=== PATIENT | male | born 1950 | race Caucasian/White ===

== ENCOUNTER → 2018-10-23 09:16 | Outpatient (CLI) | payer OTHER, SELFPAY ==
--- NOTE | 2018-10-23 | DI.ECHO.S_ITS ---
[facility] +---------+ : : [address] : [address] : : : : [id number] : : : : Phone: [phone]+ Echocardiogram Report + + :Name: YISSEL BRYAN Study Date: 10/23/2018 Height: 69 in : :[facility] Exam Location: [facility] Weight: 192 lb : : Gender: Male BSA: 2.0 m2 : :: 1950 Age: 68 yrs BP: 125/70 mmHg: :Reason For Study: Presence of prosthetic heat valve : :Ordering Physician: Michael : :Giacomo Performed By: Betsey Page : + + Interpretation Summary The left ventricle is mildly dilated. The ejection fraction is estimated to be 50-55%. The right ventricle is mildly dilated. Right ventricular systolic function is mild to moderately reduced. This is decreased compared to the previous study. There is a mechanical mitral valve. The prosthetic mitral valve is well-seated. The peak E velocity is about 1.78 m/s, mean gradient about 3.1 mmHg. In February 2015, peak E velocity was 1.9 m/s and mean gradient was 3.8 mmHg as well. There is a mechanical aortic valve. The peak aortic velocity is 2.1 m/sec. The aortic valve mean gradient is 8.9 mmHg. The peak aortic velocity on the previous exam was 2.5 m/sec. There is mild tricuspid regurgitation. Compared to the prior echo exam, there has been no change in TR severity. The right ventricular systolic pressure is estimated to be at least 31 mmHg based on an estimated right atrial pressure of 8 mm Hg. Procedure: A two-dimensional transthoracic echocardiogram with color flow and Doppler was performed. The study quality was technically adequate. Comparison is made with the echocardiogram of 02/12/2015. The heart rate ranged between 40-58 bpm during the study. The patient was in atrial fibrillation with heart rates between 40-58 bpm during the exam. Left Ventricle: The left ventricle is mildly dilated. There is mild-moderate concentric left ventricular hypertrophy. Proximal septal thickening is noted. There is no echo evidence for significant left ventricular outflow tract obstruction. The ejection fraction is estimated to be 50-55%. There is a significant dyssynchronous contraction pattern, consistent with a conduction abnormality. Diastolic function could not be accurately assessed due to confounding valvular disease. Right Ventricle: The right ventricle is mildly dilated. Right ventricular systolic function is mild to moderately reduced. This is decreased compared to the previous study. Atria: Both atria are severely dilated. Both atria have remained unchanged in size since the prior echo exam. There is no Doppler evidence for an interatrial shunt. Mitral Valve: There is a mechanical mitral valve. The prosthetic mitral valve is well-seated. Normal prosthetic mitral valve gradients. The peak E velocity is about 1.78 m/s, mean gradient about 3.1 mmHg. In February 2015, peak E velocity was 1.9 m/s and mean gradient was 3.8 mmHg as well. There is no obvious mitral regurgitation, imaging is limited by acoustic shadowing. Aortic Valve: There is a mechanical aortic valve. The peak aortic velocity is 2.1 m/sec. The peak aortic velocity on the previous exam was 2.5 m/sec. The aortic valve mean gradient is 8.9 mmHg. There is a mobile filamentous type echogenic structure noted on the mechanical aortic valve and LV outflow tract likely severed chordae as it was seen on previous examinations as well. There is trace aortic regurgitation. Tricuspid Valve: The tricuspid valve is normal. There is mild tricuspid regurgitation. The right ventricular systolic pressure is estimated to be at least 31 mmHg based on an estimated right atrial pressure of 8 mm Hg. Compared to the prior echo exam, there has been no change in TR severity. Pulmonic Valve: The pulmonic valve is not well visualized. There is mild to moderate pulmonic regurgitation. Great Vessels: The aortic root is mildly dilated. The ascending aorta is at the upper limits of normal in size. The pulmonary artery is not well visualized, but is probably normal size. The IVC is dilated (diameter is greater than 2.1 cm) yet it collapses greater than 50% with a sniff. This suggests a right atrial pressure of 8 mm Hg. Pericardium/ Pleura There is no pericardial effusion. There is no pleural effusion. MMode/2D Measurements & Calculations LVIDd: 6.1 cm LVOT diam: 2.8 cm LVIDs: 4.3 cm Ao root diam: 4.1 cm FS: 29.7 % asc Aorta Diam: 3.4 cm IVSd: 1.1 cm LVPWd: 1.5 cm LV brasher. diameter/BSA (cm/m^2): 3.0 LV sys. diameter/BSA (cm/m^2): 2.1 LA A2 area: 79.4 cm2 RA long axis: 10.0 cm LA A4 area: 108.0 cm2 RA area: 47.2 cm2 LA length (vol): 10.9 cm RA vol: 188.6 ml LA vol: 664.9 ml RA : 92.9 ml/m2 LA vol index: 327.5 ml/m2 IVC diam: 2.9 cm RVD1 (basal): 4.7 cm Doppler Measurements & Calculations Ao V2 max: 208.5 cm/sec LVOT Max Jonah: 100.7 cm/sec Ao V2 mean: 137.2 cm/sec LV V1 max P.1 mmHg Ao max P.4 mmHg LV V1 VTI: 17.6 cm Ao mean P.9 mmHg ANTONIA(I,D): 2.6 cm2 Ao V2 VTI: 40.3 cm ANTONIA(V,D): 2.9 cm2 sev ratio: 0.44 ANTONIA indexed to BSA (cm^2/m^2): 1.3 Med Peak E' Jonah: 3.4 cm/sec TR max jonah: 240.3 cm/sec Lat Peak E' Jonah: 7.6 cm/sec TR max P.1 mmHg MV P1/2t: 107.7 msec PA V2 max: 59.5 cm/sec MVA(VTI): 2.1 cm2 PA V2 mean: 40.0 cm/sec PA mean P.72 mmHg PA Accel Time: 0.07 sec MV V2 mean: 72.5 cm/sec MV P1/2t max jonah: 173.1 cm/sec MV mean P.1 mmHg MVA(P1/2t): 2.0 cm2 MV V2 VTI: 51.4 cm SV(LVOT): 106.6 ml Reading Physician:SHAYNA
== END ==
PROVIDERS: PCP Family Medicine; Visit Provider Internal Medicine Cardiovascular Disease
DX: I07.1 Rheumatic tricuspid insufficiency (principal); I37.1 Nonrheumatic pulmonary valve insufficiency; Z95.2 Presence of prosthetic heart valve
CPT/HCPCS: 93306

== ENCOUNTER → 2018-11-23 07:41 | Outpatient (CLI) | payer OTHER, SELFPAY ==
--- NOTE | 2018-11-23 | DI.NM.S_ITS ---
PROCEDURE: NM PARATHYROID SPECT RADIOPHARMACEUTICAL: 24.9 mCi Tc-99m sestamibi IV. INDICATIONS: HYPERCALCEMIA/ELEVATED PARATHYROID LEVEL TECHNIQUE: After intravenous administration of Tc-99m sestamibi, anterior planar images of the neck and mediastinum were obtained at approximately 10 minutes and 2-3 hours. SPECT images were acquired after the 10 minute planar images. COMPARISON: [facility], CT, CHEST/ABD/PEL WITH CONTRAST, 09/27/2012, 9:54. [facility], CT, CHEST/ABD/PEL WITH CONTRAST, 05/18/2012, 9:23. FINDINGS: On the early images, the thyroid gland is bilobed and has normal size and morphology. There is no focal increased activity in the thyroid bed. The delayed images show no preferential tracer retention in the thyroid bed to suggest parathyroid adenoma. The SPECT images demonstrate no abnormal activity in the neck. IMPRESSION: No findings of a parathyroid adenoma are detected. If it would be helpful for clinical management decision making, please consider a dedicated parathyroid adenoma protocol CT (without and with contrast) for further evaluation. Dictated by: Dino Muniz M.D. on 11/23/2018 at 10:11 Approved by: Dino Muniz M.D. on 11/23/2018 at 10:13
== END ==
PROVIDERS: PCP Family Medicine; Visit Provider Family Medicine
DX: E83.52 Hypercalcemia (principal)
CPT/HCPCS: 78071; A9500

== ENCOUNTER 2019-03-27 09:16 | Emergency (ER) | payer OTHER, SELFPAY ==
[2019-03-27 09:20] VITALS: BP 192/100; PULSE 88; RESP 22; TEMP 36.4; O2SAT 95
--- NOTE | 2019-03-27 09:37 | DI.RAD.S_ITS ---
PROCEDURE: XR CHEST 1V INDICATIONS: shortness of breath TECHNIQUE: One view of the chest was acquired. COMPARISON: [facility], , CHEST 2 VIEW, 06/04/2017, 20:58. FINDINGS: Surgical changes and devices: Sternotomy wires and CABG clips. Postsurgical aortic valvular change. Scarring and atelectasis, grossly unchanged. No acute consolidation. No pneumothorax. No pleural effusion. Possible Anais B line seen in the right lung base. Mediastinum: Mediastinal contours appear normal. Heart size is enlarged. Bones and chest wall: No suspicious bony lesions. Overlying soft tissues appear unremarkable. Bilateral shoulder joint degeneration. IMPRESSION: Marked cardiomegaly as before. Otherwise, grossly unchanged examination since 06/04/17. In this setting it would be technically difficult to exclude early pulmonary edema. If there is persistent clinical diagnostic uncertainty, continued surveillance with short interval chest radiographs after treatment is recommended. Dictated by: Gerardo Kwan M.D. on 03/27/2019 at 10:14 Approved by: Gerardo Kwan M.D. on 03/27/2019 at 10:16
[2019-03-27 09:54] LABS: Creatine Kinase 61 U/L (55-170)
[2019-03-27 09:55] LABS: Alanine Aminotransferase 15 IU/L (21-72); Albumin 4.3 g/dL (3.5-5.0); Albumin Globulin Ratio 1.3 (1.0-2.8); Alkaline Phosphatase 71 U/L (38-126); Aspartate Aminotransferase 25 IU/L (17-59); BUN Creatinine Ratio 28.8 (6-22); Bilirubin Total 1.5 mg/dL (0.2-1.3); Blood Urea Nitrogen 23 mg/dL (9-20); Calcium 10.5 mg/dL (8.4-10.2); Carbon Dioxide 29 mmol/L (22-32); Chloride 106 mmol/L (98-107); Estimated Glomerular Filt Rate > 60.0 mL/min (>60); Globulin 3.2 g/dL (1.7-4.1); Glucose 90 mg/dL (80-110); HEMOLYSIS < 15 (0-50); Potassium 3.5 mmol/L (3.4-5.1); Sodium 144 mmol/L (137-145); Total Protein 7.5 g/dL (6.3-8.2)
[2019-03-27 09:56] LABS: Prothrombin Time 60.9 SECONDS (10.1-12.7)
[2019-03-27 09:58] LABS: INR 5.1 (0.9-1.3)
[2019-03-27 10:00] VITALS: BP 164/72; PULSE 50; RESP 22; O2SAT 99
[2019-03-27 10:03] LABS: Add Manual Diff / Slide Review NO; Basophils Absolute Auto 0 /uL (0-100); Basophils Percent Auto 0.5 % (0-2); Eosinophils Absolute Auto 300 /uL (0-450); Eosinophils Percent Auto 3.6 % (2-4); Hematocrit 37.6 % (41-53); Lymphocytes Absolute Auto 800 /uL (1100-4500); Lymphocytes Percent Auto 11.4 % (25-40); Mean Corpuscular HGB Conc 34.7 % (30-36); Mean Corpuscular Hemoglobin 34.3 PG (26-34); Monocytes Absolute Auto 900 /uL (0-900); Monocytes Percent Auto 12.2 % (3-14); Neutrophils Absolute Auto 5100 /uL (1500-7000); Neutrophils Percent Auto 72.3 % (50-75); Platelet Count 137 X10^3/uL (150-400); Red Cell Distribution Width 13.9 % (11.6-14.8)
[2019-03-27 10:06] LABS: Troponin I 0.045 ng/mL (0.01-0.034)
--- NOTE | 2019-03-27 10:07 | ED_ITS ---
HPI - SOB/Dyspnea General Chief Complaint: Shortness of Breath/Dyspnea Stated Complaint: RETAINING WATER,DIFFICULTY BREATHING ON EXERTION Time Seen by Provider: 03/27/19 09:50 Source: patient Mode of arrival: ambulatory Limitations: no limitations History of Present Illness Patient is a 68-year-old male with history of CHF and valvular replacements presenting with increased shortness of breath and weight gain. He states calcium was high he was taken off hydrochlorothiazide the 15 of March. He has progressively gotten more short of breath both with exertion and at rest. He is unable to lie flat he has got swelling in his legs. Typical weight is 185 now 204. He denies any chest pain no fevers no cough MD Complaint: shortness of breath Severity: moderate Related Data Home Medications Medication Instructions Recorded Confirmed diltiazem HCl [Cartia XT] 120 mg PO DAILY 03/27/19 03/27/19 losartan 50 mg PO DAILY 03/27/19 03/27/19 metoprolol succinate 50 mg PO DAILY 03/27/19 03/27/19 warfarin 7.5 mg PO SUTUTHSA 03/27/19 03/27/19 warfarin 10 mg PO MOWEFR 03/27/19 03/27/19 Previous Rx's Medication Instructions Recorded furosemide [Lasix] 20 mg PO QAM #3 tab 03/27/19 Allergies Allergy/AdvReac Type Severity Reaction Status Date / Time clindamycin [CLINDAMYCIN] Allergy Severe ANAPHYLAXIS Verified 03/27/19 09:40 Penicillins [PENICILLINS] Allergy Unknown CHILDHOOD Verified 03/27/19 09:40 - UNKNOWN REACTION PER PT Sulfa (Sulfonamide Allergy Unknown CHILDHOOD Verified 03/27/19 09:40 Antibiotics) - UNKNOWN [SULFA (SULFONAMIDE REACTION ANTIBIOTICS)] PER PT Review of Systems Review of Systems GENERAL: Denies chills, fatigue, malaise, fever, sweats, travel HEENT: Denies sinus pain, ear pain, sore throat, difficulty swallowing, neck pain RESPIRATORY: See PI CARDIOVASCULAR: Denies chest pain, palpitations, orthopnea, edema GASTROINTESTINAL: Denies nausea, vomiting, abdominal pain, diarrhea, constipation, melena. : Denies dysuria, frequency, incontinence, hematuria, urinary retention, flank pain. MUSCULOSKELETAL: Denies weakness, joint pain, or bony pain SKIN: No rash, no erythema, no pruritus NEUROLOGIC: Denies weakness, dizziness, headache, numbness, change in speech, confusion PSYCHIATRIC: No concerning psychosocial issues. 12 point review of systems is negative except for those stated above and HPI [facility] Medical History CHF (congestive heart failure) (Acute) Social History Smoking Status: Never smoker Social History Smoking Status: Never smoker Exam Initial Vital Signs Initial Vital Signs: Vital Signs Temperature 97.5 F L 03/27/19 09:20 Pulse Rate 88 03/27/19 09:20 Respiratory Rate 22 03/27/19 09:20 Blood Pressure 192/100 H 03/27/19 09:20 Pulse Oximetry 95 03/27/19 09:20 GENERAL: Alert well-appearing male HEENT: Head atraumatic,EOMI, pupils reactive, face symmetric, CARDIOVASCULAR: Regular rate and rhythm click heard, rubs or gallops. RESPIRATORY: Breath sounds equal bilaterally, no wheezes rales or rhonchi. No respiratory distress speaks in full signs ABDOMEN: Soft, nontender. Normoactive bowel sounds all 4 quadrants. No guarding or rebound. EXTREMITIES: Normal range of motion, no clubbing +2 pitting edema NEUROLOGICAL: Alert and oriented x4.Normal gait and speech. Cranial nerves II through XII grossly intact. SKIN: Warm, dry, no laceration, no petechiae, no rashes or lesions. Course Orders Ordered: ED Orders 03/27/19 09:25 B Type Natriuretic Peptide Stat Complete Blood Count AUTO DIFF Stat Comprehensive Metabolic Panel Stat Prothrombin Time INR Stat Troponin & CK Cardiac Panel Stat 03/27/19 09:36 EKG-12 Lead Stat 03/27/19 09:37 XR chest 1V Stat Discontinued Medications Furosemide (Lasix) 40 mg IV NOW ONE Stop: 03/27/19 09:59 Last Admin: 03/27/19 11:09 Dose: 40 mg Vital Signs - 8 hr 03/27/19 09:20 03/27/19 10:00 03/27/19 11:00 Temperature 97.5 F L Pulse Rate 88 50 L 50 L Respiratory Rate 22 22 24 Blood Pressure 192/100 H Blood Pressure [Right Arm] 164/72 H 123/82 Pulse Oximetry 95 99 99 03/27/19 11:39 03/27/19 12:00 Temperature Pulse Rate 52 L 60 Respiratory Rate 18 20 Blood Pressure Blood Pressure [Right Arm] 177/78 H 168/70 H Pulse Oximetry 99 97 MDM - SOB/Dyspnea Lab Data Attestation: I reviewed the patient's lab results. Result diagrams: 03/27/19 09:25 03/27/19 09:25 Lab Results 03/27/19 03/27/19 03/27/19 Range/Units 09:25 09:25 09:25 WBC 7.0 (4.5-11.0) X10^3/uL RBC 3.80 L (4.5-5.9) X10^6/uL Hgb 13.0 L (13.5-17.5) g/dL Hct 37.6 L (41-53) % MCV 99.0 (80-100) fL MCH 34.3 H (26-34) PG MCHC 34.7 (30-36) % RDW 13.9 (11.6-14.8) % Plt Count 137 L (150-400) X10^3/uL Neut % (Auto) 72.3 (50-75) % Lymph % (Auto) 11.4 L (25-40) % [place] % (Auto) 12.2 (3-14) % Eos % (Auto) 3.6 (2-4) % Baso % (Auto) 0.5 (0-2) % Neut # (Auto) 5100 (6006-8040) /uL Lymph # (Auto) 800 L (5128-9722) /uL [place] # (Auto) 900 (0-900) /uL Eos # (Auto) 300 (0-450) /uL Baso # (Auto) 0 (0-100) /uL PT 60.9 H (10.1-12.7) SECONDS INR 5.1 H* (0.9-1.3) Sodium 144 (137-145) mmol/L Potassium 3.5 (3.4-5.1) mmol/L Chloride 106 (98-107) mmol/L Carbon Dioxide 29 (22-32) mmol/L BUN 23 H (9-20) mg/dL Creatinine 0.80 (0.66-1.25) mg/dL Estimated GFR > 60.0 (>60) mL/min BUN/Creatinine Ratio 28.8 H (6-22) Glucose 90 (80-110) mg/dL Calcium 10.5 H (8.4-10.2) mg/dL Total Bilirubin 1.5 H (0.2-1.3) mg/dL AST 25 (17-59) IU/L ALT 15 L (21-72) IU/L Alkaline Phosphatase 71 (38-126) U/L Total Creatine Kinase (55-170) U/L CK-MB (CK-2) CK-MB (CK-2) Rel Index Troponin I (0.01-0.034) ng/mL B-Natriuretic Peptide (<100) Total Protein 7.5 (6.3-8.2) g/dL Albumin 4.3 (3.5-5.0) g/dL Globulin 3.2 (1.7-4.1) g/dL Albumin/Globulin Ratio 1.3 (1.0-2.8) 03/27/19 03/27/19 Range/Units 09:25 09:25 WBC (4.5-11.0) X10^3/uL RBC (4.5-5.9) X10^6/uL Hgb (13.5-17.5) g/dL Hct (41-53) % MCV (80-100) fL MCH (26-34) PG MCHC (30-36) % RDW (11.6-14.8) % Plt Count (150-400) X10^3/uL Neut % (Auto) (50-75) % Lymph % (Auto) (25-40) % [place] % (Auto) (3-14) % Eos % (Auto) (2-4) % Baso % (Auto) (0-2) % Neut # (Auto) (9037-1073) /uL Lymph # (Auto) (8244-3274) /uL [place] # (Auto) (0-900) /uL Eos # (Auto) (0-450) /uL Baso # (Auto) (0-100) /uL PT (10.1-12.7) SECONDS INR (0.9-1.3) Sodium (137-145) mmol/L Potassium (3.4-5.1) mmol/L Chloride (98-107) mmol/L Carbon Dioxide (22-32) mmol/L BUN (9-20) mg/dL Creatinine (0.66-1.25) mg/dL Estimated GFR (>60) mL/min BUN/Creatinine Ratio (6-22) Glucose (80-110) mg/dL Calcium (8.4-10.2) mg/dL Total Bilirubin (0.2-1.3) mg/dL AST (17-59) IU/L ALT (21-72) IU/L Alkaline Phosphatase (38-126) U/L Total Creatine Kinase 61 (55-170) U/L CK-MB (CK-2) TNP CK-MB (CK-2) Rel Index TNP Troponin I 0.045 H (0.01-0.034) ng/mL B-Natriuretic Peptide 330 H (<100) Total Protein (6.3-8.2) g/dL Albumin (3.5-5.0) g/dL Globulin (1.7-4.1) g/dL Albumin/Globulin Ratio (1.0-2.8) Urine Dip Bedside Urine Glucose Negative Bedside Urine Bilirubin + 1 Bedside Urine Ketone +/- 5 Urine Specific [place] 1.030 Bedside Urine Occult Blood +++ Bedside Urine pH 5.5 Bedside Urine Protein + 30 Bedside Urine Urobilinogen 1+ 2mg Bedside Urine Nitrite - Negative Bedside Urine Leukocytes - Negative Esterase Imaging Data Chest x-ray: Radiologist's impression: PROCEDURE: XR CHEST 1V INDICATIONS: shortness of breath TECHNIQUE: One view of the chest was acquired. COMPARISON: [facility], , CHEST 2 VIEW, 06/04/2017, 20:58. FINDINGS: Surgical changes and devices: Sternotomy wires and CABG clips. Postsurgical aortic valvular change. Scarring and atelectasis, grossly unchanged. No acute consolidation. No pneumothorax. No pleural effusion. Possible Anais B line seen in the right lung base. Mediastinum: Mediastinal contours appear normal. Heart size is enlarged. Bones and chest wall: No suspicious bony lesions. Overlying soft tissues appear unremarkable. Bilateral shoulder joint degeneration. IMPRESSION: Marked cardiomegaly as before. Otherwise, grossly unchanged examination since 06/04/17. In this setting it would be technically difficult to exclude early pulmonary edema. If there is persistent clinical diagnostic uncertainty, continued surveillance with short interval chest radiographs after treatment is recommended. Dictated by: Gerardo Kwan M.D. on 03/27/2019 at 10:14 ECG Data Attestation: I personally reviewed and interpreted this ECG as follows: Interpretation: Atrial fibrillation Rate [address] changes MDM Narrative Medical decision making narrative: Patient had ambulation trial his oxygen it decreased to 85% however he was completely asymptomatic a came up very quickly afterwards. He is requesting to go home rather than be admitted to the hospital. I have called and spoken with Dr. Correa in his PCP office. I updated her on elevated INR of 5.1 a need for Lasix. She agrees he will be seen in the office to recheck INR and check on his breathing. Discharge Plan Departure Patient Disposition: Home Clinical Impression: CHF (congestive heart failure) Qualifiers: Heart failure type: unspecified Heart failure chronicity: unspecified Qualified Code(s): I50.9 - Heart failure, unspecified Discharge Date/Time: 03/27/19 12:55 Interventions: ED Discharge Assessment Last Done: 03/27/19 12:54 Instructions: Heart Failure Activity Restrictions/Additional Instructions: *You have been diagnosed with congestive heart failure and elevated INR *What to do: You have water retention from not taking water pill. *Continue to take medications as directed DO NOT TAKE WARFARIN FOR THE NEXT 2 DAYS. YOUR INR NEEDS TO BE RE-CHECKED THIS WEEK IN CLINIC Start taking Lasix 20 mg once a day for 3 days--> SENT OT [facility] *Follow up with your primary care provider in 2-3 days *Return to ER if you should have chest pain, shortness of breath, or any new, worsening or concerning symptoms Prescriptions: New furosemide [Lasix] 20 mg tablet 20 mg PO QAM Qty: 3 RF: 0 No Action losartan 50 mg Tablet 50 mg PO DAILY RF: 0 metoprolol succinate 50 mg Tablet Extended Release 24 Hr 50 mg PO DAILY RF: 0 warfarin 10 mg Tablet 10 mg PO MOWEFR RF: 0 diltiazem HCl [Cartia XT] 120 mg Capsule,Extended Release 24hr 120 mg PO DAILY RF: 0 warfarin 7.5 mg Tablet 7.5 mg PO SUTUTHSA RF: 0 Referrals: Jurgen Vigil MD [Primary Care Provider] -
[2019-03-27 10:34] LABS: B Type Natriuretic Peptide 330 (<100)
[2019-03-27 11:00] VITALS: BP 123/82; PULSE 50; RESP 24; O2SAT 99
[2019-03-27] MEDS: FUROSEMIDE 40 MG/4 ML VIAL IV (11:09)
[2019-03-27 11:39] VITALS: BP 177/78; PULSE 52; RESP 18; O2SAT 99
[2019-03-27 12:00] VITALS: BP 168/70; PULSE 60; RESP 20; O2SAT 97
--- NOTE | 2019-03-27 12:38 | PC.NURSE ---
f\u appt made w/ Dr. Irving's office. (Luna Chen NP) 03/29 at 1500 to recheck respiratory status as well as INR.
== END 2019-03-27 12:55 | disposition home or self-care (01) ==
PROVIDERS: Emergency Provider Emergency Medicine; PCP Family Medicine
DX: I50.9 Heart failure, unspecified (principal)
CPT/HCPCS: 71045; 80053; 81003; 82550; 83880; 84484; 85025; 85610; 93005; 96374; 99284; 99285; J1940

== ENCOUNTER → 2019-04-05 09:46 | Outpatient (CLI) | payer OTHER, SELFPAY | PROVIDERS: Family Provider Family Medicine; PCP Family Medicine; Visit Provider Internal Medicine Endocrinology, Diabetes & Metabolism | DX: M85.852 Other specified disorders of bone density and structure, left thigh (principal); E21.3 Hyperparathyroidism, unspecified | CPT/HCPCS: 77080 ==

== ENCOUNTER → 2019-04-27 07:55 | Outpatient (CLI) | payer OTHER, SELFPAY ==
--- NOTE | 2019-04-27 | DI.ECHO.S_ITS ---
[facility]---------+ [facility] +---------+ : : [address] : [address] : : : : [id number] : : : : Phone: [phone]+ Echocardiogram Report + + :Name: YISSEL BRYAN Study Date: 04/27/2019 Height: 69 in : :[facility] Location: [facility] Weight: 183 lb : : Gender: Male BSA: 2.0 m2 : :: 1950 Age: 68 yrs BP: 160/70 mmHg: :Reason For Study: Acute CHF : :Ordering Physician: Michael : :Delia Gooden Performed By: Betsey Page : + + Interpretation Summary The left ventricle is moderately dilated. This is mildly increased compared to the previous study. The ejection fraction is estimated to be 50-55%. There has been no significant change in LVEF since the previous study. The right ventricle is mildly dilated.Right ventricular systolic function is moderately reduced. There is a mechanical mitral valve. The prosthetic mitral valve is well-seated. The peak E velocity is about 1.8 m/s and mean gradient about 4.3 mmHg. In October 2018 it was 1.78 m/s and mean gradient about 3.1 mmHg. In February 2015, peak E velocity was 1.9 m/s and mean gradient was 3.8 mmHg. No significant mitral regurgitation seen. Overall evaluation is limited due to acoustic shadowing. There is a mechanical aortic valve. The prosthetic aortic valve is well-seated. The peak aortic velocity is 2.3 m/sec. The peak aortic velocity on the previous exam was 2.1 m/sec. The aortic valve mean gradient is 20.5 mmHg. There is mild tricuspid regurgitation. Compared to the prior echo exam, there has been no change in TR severity. The right ventricular systolic pressure is estimated to be at least 38 mmHg based on an estimated right atrial pressure of 15 mm Hg. Compared to the prior echo exam, there has been an increase in the severity of pulmonary hypertension. Procedure: A two-dimensional transthoracic echocardiogram with color flow and Doppler was performed. The study quality was technically adequate. Comparison is made with the echocardiogram of 10/23/2018. The heart rate ranged between 41-57 bpm during the study. The patient was in atrial fibrillation with heart rates between 41-57 bpm during the exam. Left Ventricle: The left ventricle is moderately dilated. Proximal septal thickening is noted. There is no echo evidence for significant left ventricular outflow tract obstruction. Left ventricular wall thickness is mild-moderately increased. This is mildly increased compared to the previous study. There is no thrombus. The ejection fraction is estimated to be 50-55%. There has been no significant change since the previous study. There is a significant dyssynchronous contraction pattern due to the paced rhythm. Diastolic function could not be accurately assessed due to confounding valvular disease. Right Ventricle: The right ventricle is mildly dilated. Right ventricular systolic function is moderately reduced. Atria: Both atria are severely dilated. Both atria have remained unchanged in size since the prior echo exam. There is no Doppler evidence for an interatrial shunt. Mitral Valve: There is a mechanical mitral valve. The prosthetic mitral valve is well-seated. The peak E velocity is about 1.8 m/s and mean gradient about 4.3 mmHg. In October 2018 it was 1.78 m/s and mean gradient about 3.1 mmHg. In February 2015, peak E velocity was 1.9 m/s and mean gradient was 3.8 mmHg. No significant mitral regurgitation seen. Overall evaluation is limited due to acoustic shadowing. Aortic Valve: There is a mechanical aortic valve. The prosthetic aortic valve is well-seated. There is a mobile filamentous type echogenic structure noted on the mechanical aortic valve and LV outflow tract likely severed chordae as it was seen on previous examinations as well. The peak aortic velocity is 2.3 m/sec. The peak aortic velocity on the previous exam was 2.1 m/sec. The aortic valve mean gradient is 20.5 mmHg. There is trace aortic regurgitation. Tricuspid Valve: The tricuspid valve is normal. There is mild tricuspid regurgitation. The right ventricular systolic pressure is estimated to be at least 38 mmHg based on an estimated right atrial pressure of 15 mm Hg. Compared to the prior echo exam, there has been no change in TR severity. Compared to the prior echo exam, there has been an increase in the severity of pulmonary hypertension. Pulmonic Valve: The pulmonic valve is not well visualized. There is moderate pulmonic regurgitation. Great Vessels: The aortic root is mildly dilated. The ascending aorta is normal in size. The pulmonary artery is not well visualized, but is probably normal size. The IVC is dilated (diameter is greater than 2.1 cm) and it collapses less than 50% with a sniff. This suggests a high right atrial pressure of 15 mm Hg. Pericardium/ Pleura There is no pericardial effusion. There is no pleural effusion. MMode/2D Measurements & Calculations LVIDd: 7.3 cm LVOT diam: 2.8 cm LVIDs: 5.0 cm Ao root diam: 3.9 cm FS: 31.3 % asc Aorta Diam: 3.3 cm IVSd: 0.75 cm LVPWd: 1.2 cm LV brasher. diameter/BSA (cm/m^2): 3.7 LV sys. diameter/BSA (cm/m^2): 2.5 LA A2 area: 157.6 cm2 RA long axis: 8.3 cm LA A4 area: 57.9 cm2 RA area: 45.9 cm2 LA length (vol): 9.6 cm RA vol: 215.5 ml LA vol: 806.8 ml RA : 108.3 ml/m2 LA vol index: 405.6 ml/m2 IVC diam: 2.9 cm RVD1 (basal): 4.6 cm RVD2 (mid): 3.0 cm Doppler Measurements & Calculations Ao V2 max: 226.4 cm/sec LVOT Max Jonah: 91.4 cm/sec Ao V2 mean: 142.5 cm/sec LV V1 max P.4 mmHg Ao max P.5 mmHg LV V1 VTI: 18.0 cm Ao mean P.6 mmHg ANTONIA(I,D): 2.6 cm2 Ao V2 VTI: 42.6 cm ANTONIA(V,D): 2.5 cm2 sev ratio: 0.42 ANTONIA indexed to BSA (cm^2/m^2): 1.3 MV E max jonah: 158.2 cm/sec TR max jonah: 239.7 cm/sec MV P1/2t: 117.4 msec TR max P.1 mmHg MVA(VTI): 2.4 cm2 PA V2 max: 62.7 cm/sec PA V2 mean: 32.0 cm/sec PA mean P.60 mmHg PA pr(Accel): -624.7 mmHg PA Accel Time: 0.10 sec MV V2 mean: 88.0 cm/sec MV P1/2t max jonah: 158.5 cm/sec MV mean P.1 mmHg MVA(P1/2t): 1.9 cm2 MV V2 VTI: 47.2 cm SV(LVOT): 112.4 ml Reading Physician:07:09 PM
[2019-04-27 10:21] LABS: BUN Creatinine Ratio 32.5 (6-22); Blood Urea Nitrogen 26 mg/dL (9-20); Calcium 10.9 mg/dL (8.4-10.2); Carbon Dioxide 32 mmol/L (22-32); Chloride 100 mmol/L (98-107); Estimated Glomerular Filt Rate > 60.0 mL/min (>60); Glucose 82 mg/dL (80-110); HEMOLYSIS < 15 (0-50); Potassium 3.9 mmol/L (3.4-5.1); Sodium 139 mmol/L (137-145)
== END ==
PROVIDERS: Family Provider Family Medicine; PCP Family Medicine; Visit Provider Internal Medicine Cardiovascular Disease
DX: I07.1 Rheumatic tricuspid insufficiency (principal); I50.31 Acute diastolic (congestive) heart failure; Z95.2 Presence of prosthetic heart valve
CPT/HCPCS: 36415; 80048; 93306

== ENCOUNTER → 2022-01-26 16:27 | Outpatient (CLI) | payer OTHER, SELFPAY ==
[2022-01-26 17:49] LABS: Alanine Aminotransferase 12 IU/L (<50); Albumin 4.4 g/dL (3.5-5.0); Albumin Globulin Ratio 1.4 (1.0-2.8); Alkaline Phosphatase 66 U/L (38-126); Aspartate Aminotransferase 30 IU/L (17-59); BUN Creatinine Ratio 22.8 (6-22); Bilirubin Total 1.1 mg/dL (0.2-1.3); Blood Urea Nitrogen 23 mg/dL (9-20); Carbon Dioxide 33 mmol/L (22-32); Chloride 100 mmol/L (98-107); Estimated Glomerular Filt Rate > 60 mL/min (>60); Globulin 3.2 g/dL (1.7-4.1); Glucose 97 mg/dL (80-110); HEMOLYSIS 17 (0-50); Potassium 3.7 mmol/L (3.4-5.1); Sodium 140 mmol/L (137-145); Total Protein 7.6 g/dL (6.3-8.2)
== END ==
PROVIDERS: PCP Family Medicine; Referring Provider Internal Medicine Cardiovascular Disease; Visit Provider Internal Medicine Cardiovascular Disease
DX: I10 Essential (primary) hypertension (principal)
CPT/HCPCS: 36415; 80053

== ENCOUNTER → 2022-04-02 08:46 | Outpatient (CLI) | payer OTHER, SELFPAY ==
[2022-04-02 09:44] LABS: Add Manual Diff / Slide Review NO; Basophils Absolute Auto 0 /uL (0-100); Basophils Percent Auto 0.6 % (0-2); Eosinophils Absolute Auto 300 /uL (0-450); Eosinophils Percent Auto 5.2 % (2-4); Hematocrit 37.4 % (41-53); Lymphocytes Absolute Auto 800 /uL (1100-4500); Mean Corpuscular HGB Conc 34.8 % (30-36); Mean Corpuscular Hemoglobin 34.3 PG (26-34); Mean Corpuscular Volume 98.5 fL (80-100); Monocytes Absolute Auto 1000 /uL (0-900); Monocytes Percent Auto 16.2 % (3-14); Neutrophils Absolute Auto 4100 /uL (1500-7000); Platelet Count 126 X10^3/uL (150-400); Red Cell Distribution Width 14.1 % (11.6-14.8); White Blood Cell Count 6.4 X10^3/uL (4.5-11.0)
[2022-04-02 10:07] LABS: INR 3.5 (0.9-1.3); Prothrombin Time 40.2 SECONDS (10.1-12.7)
[2022-04-02 10:25] LABS: BUN Creatinine Ratio 23.6 (6-22); Blood Urea Nitrogen 25 mg/dL (9-20); Calcium 10.9 mg/dL (8.4-10.2); Carbon Dioxide 33 mmol/L (22-32); Chloride 102 mmol/L (98-107); Estimated Glomerular Filt Rate > 60 mL/min (>60); Glucose 74 mg/dL (80-110); HEMOLYSIS < 15 (0-50); Potassium 3.6 mmol/L (3.4-5.1); Sodium 141 mmol/L (137-145)
[2022-04-02 10:32] LABS: NT-proBNP (BNP-Adult 18+) 1150 pg/mL (<125)
== END ==
PROVIDERS: PCP Family Medicine; Referring Provider Internal Medicine Cardiovascular Disease; Visit Provider Internal Medicine Cardiovascular Disease
DX: R06.01 Orthopnea (principal); Z95.2 Presence of prosthetic heart valve
CPT/HCPCS: 36415; 80048; 83880; 85025; 85610

== ENCOUNTER 2022-07-14 15:32 | Emergency (ER) | payer OTHER, SELFPAY ==
[2022-07-14 15:42] VITALS: BP 133/96; PULSE 59; RESP 16; TEMP 36.3; O2SAT 98; BMI 26.4
--- NOTE | 2022-07-14 21:22 | ED.GENADULT ---
HPI - General Adult General Chief complaint: Hypertension Stated complaint: sent by md for blood pressure issues Source: patient Mode of arrival: Ambulatory Related Data Home Medications Medication Instructions Recorded Confirmed diltiazem HCl 120 mg 120 mg PO DAILY 03/27/19 03/27/19 capsule,extended release 24 hr (Cartia XT) losartan 50 mg tablet 50 mg PO DAILY 03/27/19 03/27/19 metoprolol succinate 50 mg 50 mg PO DAILY 03/27/19 03/27/19 tablet,extended release 24 hr warfarin 10 mg tablet 10 mg PO MOWEFR 03/27/19 03/27/19 warfarin 7.5 mg tablet 7.5 mg PO SUTUTHSA 03/27/19 03/27/19 Previous Rx's Medication Instructions Recorded furosemide 20 mg tablet (Lasix) 20 mg PO QAM #3 tabs 03/27/19 Allergies Allergy/AdvReac Type Severity Reaction Status Date / Time clindamycin [CLINDAMYCIN] Allergy Severe ANAPHYLAXIS Verified 07/14/22 15:42 Penicillins [PENICILLINS] Allergy Unknown CHILDHOOD Verified 07/14/22 15:42 - UNKNOWN REACTION PER PT Sulfa (Sulfonamide Allergy Unknown CHILDHOOD Verified 07/14/22 15:42 Antibiotics) - UNKNOWN [SULFA (SULFONAMIDE REACTION ANTIBIOTICS)] PER PT Patient History Medical History (Updated 07/14/22 @ 20:23 by Arlyn Rubio RN) CHF (congestive heart failure) Social History Smoking Status: Never smoker Smoking Status: Never smoker alcohol intake frequency: 0-2 drinks per day Substance Use Type: does not use Exam Initial Vital Signs Initial Vital Signs: Vital Signs Temperature 97.3 F L 07/14/22 15:42 Pulse Rate 59 L 07/14/22 15:42 Respiratory Rate 16 07/14/22 15:42 Blood Pressure 133/96 H 07/14/22 15:42 Pulse Oximetry 98 07/14/22 15:42 Oxygen Delivery Method 07/14/22 15:42 Course Vital Signs Vital signs: Vital Signs - 8 hr 07/14/22 15:42 Temperature 97.3 F L Pulse Rate 59 L Respiratory Rate 16 Blood Pressure 133/96 H Pulse Oximetry 98 Oxygen Delivery Method Room Air Discharge Plan Departure Patient Disposition: Left Without Being Seen Clinical Impression: Patient left without being seen Prescriptions: No Action losartan 50 mg Tablet 50 mg PO DAILY metoprolol succinate 50 mg Tablet Extended Release 24 Hr 50 mg PO DAILY warfarin 10 mg Tablet 10 mg PO MOWEFR diltiazem HCl [Cartia XT] 120 mg Capsule,Extended Release 24hr 120 mg PO DAILY warfarin 7.5 mg Tablet 7.5 mg PO SUTUTHSA furosemide [Lasix] 20 mg tablet 20 mg PO QAM Qty: 3 0RF
== END 2022-07-14 16:37 | disposition left against medical advice (07) ==
PROVIDERS: Emergency Provider Emergency Medicine; PCP Family Medicine
CPT/HCPCS: 99281

== ENCOUNTER → 2022-07-15 09:11 | Outpatient (CLI) | payer OTHER, SELFPAY ==
--- NOTE | 2022-07-15 09:12 | DI.NM.S_ITS ---
PROCEDURE: NM OLEG PERF SPECT R&S PHARM Rest and pharmacological stress myocardial perfusion SPECT with gated imaging and ejection fraction RADIOPHARMACEUTICAL: 12.5 mCi Tc-99m tetrafosmin IV at rest and 26.7 mCi Tc-99m tetrafosmin IV at peak effect of pharmacological stress. A [id number] was performed. INDICATIONS: Paroxysmal ventricular tachycardia TECHNIQUE: Radiopharmaceutical was injected at peak stress test, and also at rest. SPECT images were obtained. SPECT myocardial perfusion images were displayed in short axis, horizontal long axis, and vertical long axis views. Gated images were reviewed using [employer] software. COMPARISON: None. CARDIAC STRESS: A pharmacologic stress test was performed under the supervision of an attending staff, using an infusion of regadenoson. Hemodynamic data: There is normal blood pressure and heart rate response to pharmacologic stress. Symptoms: The patient denied anginal chest pain. EKG: No diagnostic changes of ischemia in the setting of pharmacologic stress; frequent PVCs. FINDINGS: Raw data: There is poor myocardial uptake of radiotracer. No significant motion artifacts. Left ventricle function: Gated images demonstrate global hypokinesis. No transient ischemic dilation; TID is 0.89 (normal less than 1.3). Left ventricle resting end diastolic volume is 240 mL. Left ventricle stress ejection fraction is 41%; normal range is above 45%. Myocardial perfusion: There is a small size, mild intensity fixed basal to mid anterior wall defect and a large size, moderate to severe fixed inferior and inferoapical wall defect. IMPRESSION: Very poor quality study. Distribution of tracer through the myocardium suggests a severely dilated left ventricle of an atypical shape. While there was no significant patient motion artifact detected, suspect that there was either image acquisition or processing error. The defects identified in the basal to mid anterior and inferior and inferoapical mary appear fixed suggesting scar however global wall motion is abnormal, possibly due to gating error. Consider an alternative type of noninvasive ischemic evaluation and an echocardiogram. Dictated by: Yadi Grimes D.O. on 07/15/2022 at 16:47 Approved by: Yadi Grimes D.O. on 07/15/2022 at 16:55
[2022-07-15 10:08] LABS: COVID19 -Nasal RAPID Negative (Negative)
== END ==
PROVIDERS: Internal Medicine Cardiovascular Disease; PCP Family Medicine; Referring Provider Physician Assistant Medical; Visit Provider Physician Assistant Medical
DX: I47.29 Other ventricular tachycardia (principal); Z20.822 Contact with and (suspected) exposure to COVID-19
CPT/HCPCS: 78452; 87635; 93017; A9502; J2785

== ENCOUNTER → 2023-03-17 14:44 | Outpatient (CLI) | payer OTHER, SELFPAY ==
[2023-03-17 15:52] LABS: BUN Creatinine Ratio 17.9 (6-22); Blood Urea Nitrogen 21 mg/dL (9-20); Calcium 10.6 mg/dL (8.4-10.2); Carbon Dioxide 37 mmol/L (22-32); Chloride 101 mmol/L (98-107); Estimated Glomerular Filt Rate > 60 mL/min (>60); Glucose 99 mg/dL (80-110); HEMOLYSIS < 15 (0-50); Potassium 3.9 mmol/L (3.4-5.1); Sodium 141 mmol/L (137-145)
== END ==
PROVIDERS: PCP Family Medicine; Referring Provider Internal Medicine Cardiovascular Disease; Visit Provider Internal Medicine Cardiovascular Disease
DX: I27.81 Cor pulmonale (chronic) (principal); I10 Essential (primary) hypertension
CPT/HCPCS: 36415; 80048

== ENCOUNTER → 2023-03-24 08:46 | Outpatient (CLI) | payer OTHER, SELFPAY ==
[2023-03-24 10:46] LABS: BUN Creatinine Ratio 16.2 (6-22); Blood Urea Nitrogen 17 mg/dL (9-20); Calcium 10.8 mg/dL (8.4-10.2); Carbon Dioxide 30 mmol/L (22-32); Chloride 103 mmol/L (98-107); Cholesterol 122 mg/dL (140-199); Estimated Glomerular Filt Rate > 60 mL/min (>60); Glucose 89 mg/dL (80-110); HDL Cholesterol 41 mg/dL (40-60); HEMOLYSIS < 15 (0-50); LDL Cholesterol Calculated 70 mg/dL (<100); Potassium 4.1 mmol/L (3.4-5.1); Sodium 140 mmol/L (137-145); Triglycerides 53 mg/dL (35-150)
== END ==
PROVIDERS: PCP Family Medicine; Referring Provider Internal Medicine Cardiovascular Disease; Visit Provider Internal Medicine Cardiovascular Disease
DX: I10 Essential (primary) hypertension (principal); I48.20 Chronic atrial fibrillation, unspecified
CPT/HCPCS: 36415; 80048; 80061

== ENCOUNTER 2023-10-04 07:27 | Day surgery (SDC) | payer OTHER, SELFPAY ==
--- NOTE | 2023-10-04 | PATH_ITS ---
[facility] Accession Number: [id number] No. of containers..01 Tissue . 01 Material submitted: . colon - SIGMOID POLYP . 01 Diagnosis: SIGMOID COLON, POLYP: Hyperplastic polyp. [facility] 10/06/2023 1112 Local . 01 Electronically signed: . Swathi Choudhury MD, Pathologist NPI- [id number] . 01 Gross description: . SIGMOID POLYP: Received in formalin is 1 fragment(s) of hinton, soft tissue measuring 0.5 x 0.4 x 0.3 cm submitted entirely in 1 cassette(s) /MARCELINA 10/05/20232035 Local . 01 Pathologist provided ICD-10: K63.5 . 01 CPT . 379114 Specimen Comment: A courtesy copy of this report has been sent to [phone] Performed at: 01 [facility] [address] [place] [address], [place], [place] [id number] MD Daniel Olguin MD Phone: [phone]
[2023-10-04 07:48] VITALS: BP 142/76; PULSE 66; RESP 28; TEMP 36.1; O2SAT 100
[2023-10-04] MEDS: LACTATED RINGERS 1,000 ML 42 ML IV (07:55)
--- NOTE | 2023-10-04 08:09 | PM.PREOP ---
Pre-operative Note Interval Note History & Physical reviewed/Exam performed by Physician: Yes Changes to H&P: No H&P completed within 30 days and has changed as indicated here:: 73-year-old man history of colon cancer with a positive Cologuard test here for diagnostic colonoscopy. Technical details were discussed. Risks, benefits, alternatives explained. Risks including but not limited to myocardial infarctThe patient requires colorectal screening and colonoscopy is recommended. ion, aspiration, bleeding, pain, missed lesion, incomplete examination, need for further radiographic studies, colonic perforation, and need for major abdominal surgery were discussed. All questions were answered to their satisfaction, and they are in agreement with this plan.
[2023-10-04 08:44] VITALS: BP 97/51; PULSE 49; RESP 20; TEMP 36.2; O2SAT 99
--- NOTE | 2023-10-04 08:45 | P.OP.COLON_ITS ---
Operative Date/Time/Diagnoses Date of procedure: 10/04/23 Time of procedure: 08:45 Pre-op diagnosis: Positive Cologuard test Procedure & Clinicians Study performed: Diagnostic colonoscopy Same procedure as scheduled: Yes Indications: 73-year-old male remote history of colon cancer on anticoagulation with a positive Cologuard test here for diagnostic colonoscopy. Surgeon: Chivo Tinoco Procedure Notes Procedure in detail: The history and physical was performed/updated and the patient is ASA class is 3. The procedure was discussed in detail with the patient. Potential risks complications including infection, bleeding, missed diagnosis, perforation, need for surgery, and were explained. Their questions were answered and informed consent was obtained. Patient was brought to the procedure room and placed standard monitoring equipment. The patient's vital signs were monitored continuously throughout the entire procedure. Prior to starting time-out was performed. The patient was placed in the left lateral recumbent position. Procedural sedation was administered by anesthesia. Examination began with a thorough inspection of the perianal area there was no evidence of fissures, fistulae, external hemorrhoids or cutaneous malignancy. The colonoscopy scope was then placed into the anal canal and was advanced forward until we reached a ileocolonic anastomosis. The scope was then slowly withdrawn examining colon thoroughly in all directions, irrigating it of any residual stool. The scope was retroflexed within the rectum The patient tolerated the procedure well. They will be discharged once criteria are met. The prep was of fair quality. The withdrawl time was 7 minutes. FINDINGS * Normal ileocolonic anastomosis * Sigmoid colonic polyp 5 mm removed with cold snare * Internal hemorrhoids Specimen(s): other (Sigmoid polyp) Impression: Colonic polyp Post-procedure Recommendations: Colonoscopy in 5 years Disposition: same day surgery
[2023-10-04 08:51] VITALS: BP 75/54; PULSE 52; RESP 21; O2SAT 99
[2023-10-04 08:55] VITALS: BP 92/73; PULSE 51; RESP 23; O2SAT 98
[2023-10-04 09:04] VITALS: BP 116/92; PULSE 54; RESP 16; O2SAT 100
[2023-10-04 09:07] VITALS: BP 126/88; PULSE 45; RESP 16; O2SAT 99
== END 2023-10-04 09:19 | disposition home or self-care (01) ==
PROVIDERS: PCP Family Medicine; Referring Provider Surgery; Visit Provider Surgery
PROC: 0DJD8ZZ Inspection of Lower Intestinal Tract, Via Natural or Artificial Opening Endoscopic (ICD-10-PCS; CPT 45378; principal; 2023-10-04 08:15)
DX: Z12.11 Encounter for screening for malignant neoplasm of colon (principal); R19.5 Other fecal abnormalities; K64.8 Other hemorrhoids; K63.5 Polyp of colon
CPT/HCPCS: 45385; J2704

== ENCOUNTER 2023-10-12 11:41 | Day surgery (SDC) | payer OTHER, SELFPAY ==
[2023-10-10 07:59] VITALS: BMI 24.5
[2023-10-12] VITALS (10 sets, daily range): BP systolic 101–153; BP diastolic 45–83; PULSE 40–61; RESP 14–24; TEMP 36.4–36.6; O2SAT 92–100; BMI 22.7
--- NOTE | 2023-10-12 12:30 | PM.PREOP ---
Pre-operative Note Interval Note History & Physical reviewed/Exam performed by Physician: Yes Changes to H&P: No
[2023-10-12] MEDS: LACTATED RINGERS 1,000 ML 21 ML IV (12:34)
[2023-10-12] MEDS: VANCOMYCIN 1,000 MG/200 ML PIGGYBACK 200 MG IV (12:34)
--- NOTE | 2023-10-12 13:16 | SUR.OPER ---
Supine on padded OR bed, head on pillow, arms secured on padded arm boards at <90 degrees abduction, legs uncrossed, safety belt at thigh, tape over blanket over lower legs.
[2023-10-12] MEDS: BUPIVACAINE 0.25% (PF) VIAL 30 ML INJ (13:19)
--- NOTE | 2023-10-12 14:29 | P.OP_ITS ---
Operative Date/Time/Diagnoses Date of procedure: 10/12/23 Time of procedure: 14:30 Pre-op diagnosis: Incisional hernia Post-op diagnosis: same Procedure & Clinicians Procedure: Open repair left abdominal wall incisional hernia 5 cm Same procedure as scheduled: Yes Indications: Jurgen is a 73-year-old man remote history of colon cancer who developed a left abdominal wall incisional hernia at the site of his colon extraction site. He is here today for an elective repair. Surgeon: Chivo Tinoco Click Yes if Unassisted: Yes Anesthesia Type: General Operative Notes Findings: 5 cm fascial defect in the posterior sheath of the left abdominal wall containing omentum Specimen(s): none sent Estimated Blood Loss (mL): 50 Procedure in detail: Patient was brought to the operating room placed supine on the table. Bilateral lower extremity compression devices were applied. General anesthesia was in duced and she was intubated with an endotracheal tube. He received Zosyn prior to skin incision. He was prepped and draped in sterile fashion a time-out was performed. The incisional hernia was readily palpable on the left lower abdominal wall. An incision and a transverse fashion was made over the bulge and the subcutaneous tissue was divided. The anterior sheath was opened and the rectus muscle was retracted medially. This exposed a rent within the posterior fascia proximally 5 cm. This was opened and contained viable omentum. The omentum was partially incarcerated and so the omentum was ligated and then resected. The remaining omentum was then returned to the abdomen. The hernia sac was excised. The posterior fascia was closed in an interrupted fashion using Ethibond suture. We then fashioned a piece of flat polypropylene macro porous mesh to cover the defect with several cm of overlap in all directions. This was tacked to the posterior sheath in few places using an Ethibond suture. The rectus muscle then lay over the repair and the anterior sheath was closed in interrupted fashion using Ethibond suture. The wound was copiously irrigated and then hemostasis was checked. The subcutaneous tissue was closed with a running Vicryl followed by 4-0 Monocryl for the skin. 30 mL of 0.25% bupivacaine was used for local anesthetic. The skin was closed with Dermabond. He tolerated the operation well and was transferred to recovery in stable condition. Complications: none Post-operative Condition: stable Disposition: same day surgery
== END 2023-10-12 15:20 | disposition home or self-care (01) ==
PROVIDERS: PCP Family Medicine; Referring Provider Surgery; Visit Provider Surgery
PROC: (CPT 49594; principal; 2023-10-12 13:15)
DX: K43.0 Incisional hernia with obstruction, without gangrene (principal)
CPT/HCPCS: 49594; 85610; J2704; J3010

== ENCOUNTER 2023-10-18 14:52 | Inpatient (IN) | payer OTHER, SELFPAY ==
[2023-10-18] VITALS (119 sets, daily range): BP systolic 65–146; BP diastolic 47–87; PULSE 71–98; RESP 18–37; TEMP 34.4–37.9; O2SAT 70–100; BMI 24.3
--- NOTE | 2023-10-18 15:05 | DI.CT.S_ITS ---
PROCEDURE: CT CHEST ABD PEL W CON INDICATIONS: increased swelling hernia repair site, lots of bruising TECHNIQUE: After the administration of intravenous contrast, 5 mm thick sections acquired from the lung apices to the symphysis. 5 mm coronal and sagittal reformats were performed, with additional 7 mm MIP reformats through the lungs. For radiation dose reduction, the following was used: automated exposure control, adjustment of mA and/or kV according to patient size. COMPARISON: None. FINDINGS: Image quality: Excellent. CHEST: Lower Neck: No enlarged lymph nodes. Thyroid: No thyroid nodules which require sonographic follow up, per consensus guidelines. Axillae: No enlarged lymph nodes. Chest Wall: Median sternotomy wires. Lungs and Pleura: No pneumothorax. Trace right pleural effusion. No consolidation or suspicious nodules. Heart: Severe cardiomegaly with marked dilatation of the atria. Mitral annulus prosthesis. Atherosclerotic calcifications are noted in the aorta, great vessels and the coronary vasculature. No pericardial effusion. Thoracic Vessels: The aorta and pulmonary arteries demonstrate normal size. Mediastinum and Aislinn: No enlarged lymph nodes. Esophagus: No wall thickening. No hiatal hernia. ABDOMEN: Liver: No solid mass. Liver has nodular margins concerning for hepatic cirrhosis. Poor defined hypoattenuating lesion in the anterior right lobe of the liver which may represent artifact or hepatic mass. Gallbladder: Gallbladder contains calcified gallstones. Biliary ducts: No biliary dilation. Pancreas: No ductal dilation. Spleen: Size is within normal limits. Multiple splenic calcifications. Adrenal Glands: No adrenal nodules. Kidneys and Ureters: Multiple nonobstructing left renal stones ranging in size from 2-6 millimeters. No hydronephrosis. No solid mass. No complex renal cystic lesion which requires follow up. Stomach and Bowel: Normal colonic caliber, without significant wall thickening. Peritoneum: Moderate volume of free intraperitoneal air concerning for bowel perforation. Hyperdense material identified in the pelvis concerning for hemoperitoneum. Scattered moderate volume of low-density fluid predominantly in the abdomen. Ventral Wall: Left paramedian supraumbilical ventral hernia which contains unremarkable appearing loops of small bowel. Hyperdense material identified adjacent to the loops of small bowel which may represent hemorrhage/clot. Abdominal Nodes: No retroperitoneal or mesenteric adenopathy by size criteria. Vessels: Aorta and inferior vena cava are normal in size. Scattered atherosclerotic calcifications involving the abdominal and pelvic vasculature. No active extravasation of contrast material identified. PELVIS: Pelvic Organs: Unremarkable. Bladder: No bladder wall thickening, accounting for underdistention. Prostate is enlarged. Pelvic Nodes: No enlarged lymph nodes. Miscellaneous: No inguinal hernias are seen. Bones: No aggressive osseous abnormality. Spine degenerative disc disease and facet arthropathy. Right hip arthroplasty. IMPRESSION: Pneumoperitoneum concerning for bowel perforation. Hyperdense material in the lower pelvis suspicious for hemorrhage/clot. Left paramedian supraumbilical ventral hernia which contains loops of small bowel. Hyperdense material noted adjacent to the herniated loops which could represent hemorrhage/clot or unopacified loops of bowel. No active extravasation of contrast identified to suggest active bleeding. Cirrhotic appearing liver. Ill-defined hypoattenuating lesion identified in the anterior right lobe of the liver which could represent artifact or hepatic mass. Recommend non-emergent MRI of the abdomen with and without contrast (hepatic protocol). Cholelithiasis. Severe cardiomegaly with marked dilatation of the atria. Findings discussed with Dr. Salamanca on October 18, 2023 at 4:29 p.m.. Dictated by: Kayla Baer MD, PhD on 10/18/2023 at 16:16 Approved by: Kayla Baer MD, PhD on 10/18/2023 at 16:32
--- NOTE | 2023-10-18 15:07 | ED.SOB ---
HPI - SOB/Dyspnea General Chief Complaint: Shortness of Breath/Dyspnea Stated Complaint: SOB Time Seen by Provider: 10/18/23 14:52 Source: patient, EMS, RN notes reviewed and old records reviewed Mode of arrival: EMS Limitations: no limitations History of Present Illness HPI Narrative: 73-year-old male history of atrial fibrillation on warfarin, history of colon cancer who developed incisional hernia at the site of his: Extraction site and had elective repair on 10/12/[address] Tinoco. Patient presents with increasing shortness of breath over the past 3 days but much worse today. Patient has had cough and chills. He denies chest pain or pressure. Has a abdominal pain when he coughs. Had a recent hernia repair 6 days ago and notes that his incision has pushed out in the last day since then. He also has quite a bit of bruising which has been slowly worsening. He states he has been stooling small amounts but regularly no black or bloody stools. He has been able to urinate. No passing out. He has had nausea, he had 1 episode of vomiting very small amount but none since. Denies any persistent vomiting. Patient was initially receiving Lovenox shots to bridge him back to his warfarin. He does note that when he had his hip replacement remotely he required blood transfusion secondary to bleeding after his hip surgery. Patient states only prior surgeries hip replacement as well as two mechanical valve surgeries. Has multiple allergies including clindamycin, penicillin and sulfa. No tobacco since the 1970s, no alcohol since the and recreational drugs. Dr. Brewster is his primary care physician. Dr. Tinoco was his surgeon who performed his hernia repair last week. Related Data Home Medications Medication Instructions Recorded Confirmed albuterol sulfate 90 mcg/actuation 2 puff inhalation Q6H PRN 09/15/23 10/12/23 aerosol inhaler (Ventolin HFA) Shortness Of Breath aspirin 81 mg tablet,delayed 81 mg PO DAILY 09/15/23 10/12/23 release atorvastatin 20 mg tablet 20 mg PO DAILY 09/15/23 10/12/23 ipratropium bromide 42 mcg (0.06 2 spray intranasal TID 09/15/23 10/12/23 %) nasal spray loratadine 10 mg tablet (Allergy 10 mg PO DAILY 09/15/23 10/12/23 Relief (loratadine)) metoprolol succinate 50 mg 50 mg PO BID 09/15/23 10/12/23 tablet,extended release 24 hr montelukast 10 mg tablet 10 mg PO DAILY 09/15/23 10/12/23 omeprazole 20 mg capsule,delayed 20 mg PO BID 09/15/23 10/12/23 release sacubitril 24 mg-valsartan 26 mg 1 tab PO BID 09/15/23 10/12/23 tablet (Entresto) spironolactone 25 mg tablet 12.5 mg PO DAILY 09/15/23 10/12/23 torsemide 20 mg tablet 10 mg PO DAILY 09/15/23 10/12/23 enoxaparin 80 mg SUBCUT DAILY 10/04/23 10/04/23 warfarin 7.5 mg tablet See Rx Instructions .Route .COMPLEX 10/12/23 10/12/23 Previous Rx's Medication Instructions Recorded acetaminophen 325 mg capsule 650 mg (2 x 325 mg) PO QID PRN 10/12/23 (Tylenol) pain #60 caps docusate sodium 100 mg capsule 100 mg PO BID #30 caps 10/12/23 (Colace) tramadol 50 mg tablet 50 mg PO Q6H PRN pain #15 tabs 10/12/23 Allergies Allergy/AdvReac Type Severity Reaction Status Date / Time clindamycin [CLINDAMYCIN] Allergy Severe ANAPHYLAXIS Verified 10/18/23 15:02 Penicillins [PENICILLINS] Allergy Unknown CHILDHOOD Verified 10/18/23 15:02 - UNKNOWN REACTION PER PT Sulfa (Sulfonamide Allergy Unknown CHILDHOOD Verified 10/18/23 15:02 Antibiotics) - UNKNOWN [SULFA (SULFONAMIDE REACTION ANTIBIOTICS)] PER PT Review of Systems Review of Systems ROS Unobtainable: All systems reviewed & are unremarkable except as noted in HPI and below Patient History Medical History History of COVID-19 (08/2019) Asthma TIA (transient ischemic attack) Difficulty swallowing GERD (gastroesophageal reflux disease) HTN (hypertension) Secondary pulmonary arterial hypertension Cor pulmonale LBBB (left bundle branch block) Anxiety Colon cancer Atrial fibrillation Chronic anticoagulation Stroke 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 CHF (congestive heart failure) Surgical History History of hip replacement, total (07/2014) History of surgery (~03/2010) History of esophagogastroduodenoscopy (EGD) History of cardiac cath S/P ascending aortic aneurysm repair (07/1994) History of abdominal aortic aneurysm repair Status post colectomy (07/2011) Aortic valve replaced (07/1994) Mitral valve replaced (2009) Social History household members: spouse Smoking Status: Former smoker alcohol intake: never Smoking Status: Former smoker alcohol intake frequency: 0-2 drinks per day Substance Use Type: does not use Exam Narrative Exam Narrative: GENERAL: Alert and oriented x three, male in mild distress. Patient does appear pale HEENT: Head normocephalic, atraumatic, EOMI, pupils reactive, pale conjunctiva, face symmetric, moist mucous membranes NECK: Supple, full range of motion CARDIOVASCULAR: Regular rate and rhythm without murmurs, rubs or gallops. No JVD. No edema bilateral lower extremities. RESPIRATORY: Breath sounds equal bilaterally, no wheezes rales or rhonchi. ABDOMEN: Soft, nontender. Normoactive bowel sounds all 4 quadrants. No guarding or rebound, rigidity, no mass, patient has healing incision in the left lower abdomen, there is a bulge, it feels quite all and rigid at that location like a hematoma underneath, patient has significant ecchymosis across the abdomen stopping at the line of the pants but does extend to the left back. : No CVA tenderness EXTREMITIES: Normal range of motion, no clubbing or edema. Neurovascularly intact. NEUROLOGICAL: Cranial nerves II through XII grossly intact. Moving all extremities SKIN: Warm, dry, no petechiae, no rashes or lesions. Initial Vital Signs Initial Vital Signs: Vital Signs Temperature 97.3 F L 10/18/23 14:55 Pulse Rate 97 H 10/18/23 14:55 Respiratory Rate 22 10/18/23 14:55 Blood Pressure 146/87 H 10/18/23 14:55 Pulse Oximetry 95 10/18/23 14:55 Oxygen Delivery Method Room Air 10/18/23 14:55 Course Orders Ordered: ED Orders 10/18/23 15:01 Complete Blood Count AUTO DIFF Stat Comprehensive Metabolic Panel Stat Lipase Stat NT-proBNP (BNP-Adult 18+) Stat PTT Partial Thromboplastin Lai Stat Prothrombin Time INR Stat Troponin & CK Cardiac Panel Stat 10/18/23 15:04 EKG-12 Lead Stat 10/18/23 15:05 CT chest abd pel w con Stat 10/18/23 15:18 FFP [Fresh Frozen Plasma] Stat PRBC [Packed Cells] Stat Type and Screen Stat Sodium Chloride (Normal Saline 0.9%) 1,000 mls @ 150 mls/hr IV CONT GHASSAN Last Admin: 10/18/23 15:12 Dose: 150 mls/hr Documented By: ANGELICA Discontinued Medications Phytonadione 10 mg/ Sodium (Chloride) 101 mls @ 202 mls/hr IV NOW ONE Stop: 10/18/23 15:51 Last Infusion: 10/18/23 17:12 Dose: Infused Documented By: Admin: 10/18/23 16:27 Dose: 202 mls/hr Documented By: KALEE Vital Signs Vital signs: Vital Signs - 8 hr 10/18/23 14:55 10/18/23 14:57 10/18/23 14:58 Temperature 97.3 F L Pulse Rate 97 H 96 H 91 H Respiratory Rate 22 25 H 26 H Blood Pressure 146/87 H Pulse Oximetry 95 70 L 77 L Oxygen Delivery Method Room Air Oxygen Flow Rate 10/18/23 14:58 10/18/23 15:00 10/18/23 15:01 Temperature Pulse Rate 95 H 91 H Respiratory Rate 27 H 25 H Blood Pressure 146/87 H Pulse Oximetry 80 L 86 L Oxygen Delivery Method Oxygen Flow Rate 10/18/23 15:01 10/18/23 15:11 10/18/23 15:11 Temperature Pulse Rate 98 H Respiratory Rate 27 H Blood Pressure 100/71 109/47 L Pulse Oximetry 89 L Oxygen Delivery Method Oxygen Flow Rate 10/18/23 15:15 10/18/23 15:15 10/18/23 15:20 Temperature Pulse Rate 92 H Respiratory Rate 25 H Blood Pressure 126/58 L 91/54 L Pulse Oximetry 99 Oxygen Delivery Method Oxygen Flow Rate 10/18/23 15:20 10/18/23 15:23 10/18/23 15:23 Temperature Pulse Rate 91 H 97 H Respiratory Rate 28 H 24 Blood Pressure 124/51 L Pulse Oximetry 84 L 97 Oxygen Delivery Method Oxygen Flow Rate 10/18/23 15:26 10/18/23 15:28 10/18/23 15:28 Temperature Pulse Rate 86 98 H Respiratory Rate 27 H Blood Pressure 71/51 L Pulse Oximetry 86 L 79 L Oxygen Delivery Method Oxygen Flow Rate 10/18/23 15:30 10/18/23 15:30 10/18/23 15:35 Temperature Pulse Rate 90 88 Respiratory Rate 26 H 24 Blood Pressure 65/47 L Pulse Oximetry 90 L 94 Oxygen Delivery Method Nasal Cannula Oxygen Flow Rate 3 10/18/23 15:37 10/18/23 15:37 10/18/23 15:40 Temperature Pulse Rate 96 H Respiratory Rate 24 Blood Pressure 97/65 109/53 L Pulse Oximetry 97 Oxygen Delivery Method Oxygen Flow Rate 10/18/23 15:40 10/18/23 15:45 10/18/23 15:45 Temperature 93.9 F L Pulse Rate 89 78 Respiratory Rate 24 24 Blood Pressure 114/56 L Pulse Oximetry 91 95 Oxygen Delivery Method Oxygen Flow Rate 10/18/23 15:47 10/18/23 15:50 10/18/23 15:50 Temperature 97.3 F L 96.1 F L Pulse Rate 80 81 Respiratory Rate 25 H 25 H Blood Pressure 114/56 L 119/52 L Pulse Oximetry 94 Oxygen Delivery Method Oxygen Flow Rate 10/18/23 15:55 10/18/23 15:55 10/18/23 16:00 Temperature 96.6 F L Pulse Rate 81 Respiratory Rate 24 Blood Pressure 101/49 L 110/54 L Pulse Oximetry 96 Oxygen Delivery Method Nasal Cannula Oxygen Flow Rate 3 10/18/23 16:00 10/18/23 16:02 10/18/23 16:05 Temperature 97.3 F L 98.2 F 97.7 F Pulse Rate 79 77 81 Respiratory Rate 25 H 25 H 26 H Blood Pressure 110/54 L Pulse Oximetry 93 92 Oxygen Delivery Method Oxygen Flow Rate 10/18/23 16:05 10/18/23 16:10 10/18/23 16:10 Temperature 97.9 F Pulse Rate 82 Respiratory Rate 22 Blood Pressure 111/55 L 98/53 L Pulse Oximetry 95 Oxygen Delivery Method Oxygen Flow Rate 10/18/23 16:15 10/18/23 16:15 10/18/23 16:20 Temperature 98.1 F 98.4 F Pulse Rate 87 83 Respiratory Rate 22 24 Blood Pressure 112/52 L 115/55 L Pulse Oximetry 96 Oxygen Delivery Method Oxygen Flow Rate 10/18/23 16:20 10/18/23 16:20 10/18/23 16:25 Temperature 98.2 F Pulse Rate 75 Respiratory Rate 23 Blood Pressure 109/54 L 115/55 L Pulse Oximetry 96 Oxygen Delivery Method Oxygen Flow Rate 10/18/23 16:25 10/18/23 16:30 10/18/23 16:30 Temperature 98.4 F 98.4 F Pulse Rate 82 84 Respiratory Rate 24 24 Blood Pressure 105/52 L Pulse Oximetry 94 89 L Oxygen Delivery Method Oxygen Flow Rate 10/18/23 16:35 10/18/23 16:35 10/18/23 16:40 Temperature 98.6 F Pulse Rate 82 Respiratory Rate 22 Blood Pressure 131/56 L 118/59 L Pulse Oximetry 94 Oxygen Delivery Method Oxygen Flow Rate 10/18/23 16:40 10/18/23 16:45 10/18/23 16:45 Temperature 98.6 F 98.6 F Pulse Rate 80 80 Respiratory Rate 26 H 22 Blood Pressure 101/56 L Pulse Oximetry 96 96 Oxygen Delivery Method Nasal Cannula Oxygen Flow Rate 3 10/18/23 16:50 10/18/23 16:50 10/18/23 16:55 Temperature 98.8 F Pulse Rate 80 Respiratory Rate 27 H Blood Pressure 116/58 L 112/56 L Pulse Oximetry 96 Oxygen Delivery Method Oxygen Flow Rate 10/18/23 16:55 10/18/23 17:00 10/18/23 17:00 Temperature 98.8 F 98.8 F Pulse Rate 77 77 Respiratory Rate 23 23 Blood Pressure 113/52 L Pulse Oximetry 97 97 Oxygen Delivery Method Oxygen Flow Rate 10/18/23 17:05 10/18/23 17:05 10/18/23 17:10 Temperature 99.0 F 99 F Pulse Rate 79 87 Respiratory Rate 24 24 Blood Pressure 108/52 L 108/53 L Pulse Oximetry 96 Oxygen Delivery Method Oxygen Flow Rate 10/18/23 17:10 10/18/23 17:10 10/18/23 17:15 Temperature 99.0 F 99.0 F Pulse Rate 80 80 Respiratory Rate 28 H 26 H Blood Pressure 100/53 L Pulse Oximetry 95 95 Oxygen Delivery Method Oxygen Flow Rate 10/18/23 17:15 10/18/23 17:20 10/18/23 17:20 Temperature 99.0 F Pulse Rate 77 Respiratory Rate 29 H Blood Pressure 106/63 108/54 L Pulse Oximetry 95 Oxygen Delivery Method Oxygen Flow Rate 10/18/23 17:25 10/18/23 17:25 10/18/23 17:30 Temperature 99.0 F Pulse Rate 76 Respiratory Rate 32 H Blood Pressure 113/64 113/57 L Pulse Oximetry 95 Oxygen Delivery Method Oxygen Flow Rate 10/18/23 17:30 10/18/23 17:35 10/18/23 17:36 Temperature 99.0 F 99.0 F Pulse Rate 84 78 Respiratory Rate 29 H 31 H Blood Pressure 120/56 L Pulse Oximetry 96 92 Oxygen Delivery Method Nasal Cannula Nasal Cannula Oxygen Flow Rate 3 3 10/18/23 17:36 Temperature 99.0 F Pulse Rate 75 Respiratory Rate 29 H Blood Pressure Pulse Oximetry 94 Oxygen Delivery Method Nasal Cannula Oxygen Flow Rate 3 MDM - SOB/Dyspnea Lab Data 10/18/23 15:01 10/18/23 15:01 Labs: Lab Results 10/18/23 10/18/23 Range/Units 15:01 15:18 WBC 16.0 H (4.5-11.0) X10^3/uL RBC 2.50 L (4.5-5.9) X10^6/uL Hgb 8.5 L (13.5-17.5) g/dL Hct 25.3 L (41-53) % MCV 101.1 H (80-100) fL MCH 34.0 (26-34) PG MCHC 33.6 (30-36) % RDW 15.1 H (11.6-14.8) % Plt Count 173 (150-400) X10^3/uL Neut % (Auto) 84.9 H (50-75) % Lymph % (Auto) 3.2 L (25-40) % Graves % (Auto) 11.9 (3-14) % Eos % (Auto) 0.0 L (2-4) % Baso % (Auto) 0.0 (0-2) % Neut # (Auto) 01992 H (5169-4911) /uL Lymph # (Auto) 500 L (7442-4744) /uL Graves # (Auto) 1900 H (0-900) /uL Eos # (Auto) 0 (0-450) /uL Baso # (Auto) 0 (0-100) /uL PT 58.1 H (9.4-12.5) SECONDS INR 5.0 H* (0.9-1.3) APTT 37 H (25.1-36.5) SECONDS Sodium 140 (137-145) mmol/L Potassium 4.2 (3.4-5.1) mmol/L Chloride 105 (98-107) mmol/L Carbon Dioxide 18 L (22-32) mmol/L BUN 47 H (9-20) mg/dL Creatinine 2.81 H (0.66-1.25) mg/dL Estimated GFR 23 L (>60) mL/min BUN/Creatinine Ratio 16.7 (6-22) Glucose 186 H (80-110) mg/dL Calcium 10.9 H (8.4-10.2) mg/dL Total Bilirubin 1.8 H (0.2-1.3) mg/dL AST 35 (17-59) IU/L ALT 30 (<50) IU/L Alkaline Phosphatase 48 (38-126) U/L Total Creatine Kinase 67 (55-170) U/L Troponin I 0.065 H (0.01-0.034) ng/mL NT-Pro-B Natriuret Pep 6410 H (<125) pg/mL Total Protein 6.6 (6.3-8.2) g/dL Albumin 3.8 (3.5-5.0) g/dL Globulin 2.8 (1.7-4.1) g/dL Albumin/Globulin Ratio 1.4 (1.0-2.8) Lipase 245 (23-300) U/L Blood Type O Positive Antibody Screen Negative Crossmatch See Detail Imaging Data CT scan - abdomen/pelvis: Radiologist's Impression: Jurgen Nguyen??73??M??1950 ? Allergy/Adv: clindamycin, Penicillins, Sulfa (Sulfonamide Antibiotics) (More??) Close Chest/Abdomen/Pelvis CT (Signed) Kayla Baer - 10/18/23 Myocardial Perfusion Scan Nuc Med (Signed) Yadi Grimes - 07/15/22 Echocardiogram Ultrasound (Signed) Michael Gooden - 04/27/19 Bone Densitometry 04/05/19 Chest X-Ray (Signed) Gerardo Kwan - 03/27/19 SPECT Scan Nuclear Medicine (Signed) Dino Muniz - 11/23/18 Echocardiogram Ultrasound (Signed) Michael Gooden - 10/23/18 Launch?[address] [address] [address] Scan Report Signed Patient: Jurgen Nguyen MR#: [id number] : 1950 Acct:[id number] Age/Sex: 73 / M Date of Service: 10/18/23 Loc: ED Accession Number: [id number] Procedure: CT chest abd pel w con Ordering Provider: Paige Salamanca D.O. PROCEDURE: CT CHEST ABD PEL W CON INDICATIONS: increased swelling hernia repair site, lots of bruising TECHNIQUE: After the administration of intravenous contrast, 5 mm thick sections acquired from the lung apices to the symphysis. 5 mm coronal and sagittal reformats were performed, with additional 7 mm MIP reformats through the lungs. For radiation dose reduction, the following was used: automated exposure control, adjustment of mA and/or kV according to patient size. COMPARISON: None. FINDINGS: Image quality: Excellent. CHEST: Lower Neck: No enlarged lymph nodes. Thyroid: No thyroid nodules which require sonographic follow up, per consensus guidelines. Axillae: No enlarged lymph nodes. Chest Wall: Median sternotomy wires. Lungs and Pleura: No pneumothorax. Trace right pleural effusion. No consolidation or suspicious nodules. Heart: Severe cardiomegaly with marked dilatation of the atria. Mitral annulus prosthesis. Atherosclerotic calcifications are noted in the aorta, great vessels and the coronary vasculature. No pericardial effusion. Thoracic Vessels: The aorta and pulmonary arteries demonstrate normal size. Mediastinum and [place]: No enlarged lymph nodes. Esophagus: No wall thickening. No hiatal hernia. ABDOMEN: Liver: No solid mass. Liver has nodular margins concerning for hepatic cirrhosis. Poor defined hypoattenuating lesion in the anterior right lobe of the liver which may represent artifact or hepatic mass. Gallbladder: Gallbladder contains calcified gallstones. Biliary ducts: No biliary dilation. Pancreas: No ductal dilation. Spleen: Size is within normal limits. Multiple splenic calcifications. Adrenal Glands: No adrenal nodules. Kidneys and Ureters: Multiple nonobstructing left renal stones ranging in size from 2-6 millimeters. No hydronephrosis. No solid mass. No complex renal cystic lesion which requires follow up. Stomach and Bowel: Normal colonic caliber, without significant wall thickening. Peritoneum: Moderate volume of free intraperitoneal air concerning for bowel perforation. Hyperdense material identified in the pelvis concerning for hemoperitoneum. Scattered moderate volume of low-density fluid predominantly in the abdomen. Ventral Wall: Left paramedian supraumbilical ventral hernia which contains unremarkable appearing loops of small bowel. Hyperdense material identified adjacent to the loops of small bowel which may represent hemorrhage/clot. Abdominal Nodes: No retroperitoneal or mesenteric adenopathy by size criteria. Vessels: Aorta and inferior vena cava are normal in size. Scattered atherosclerotic calcifications involving the abdominal and pelvic vasculature. No active extravasation of contrast material identified. PELVIS: Pelvic Organs: Unremarkable. Bladder: No bladder wall thickening, accounting for underdistention. Prostate is enlarged. Pelvic Nodes: No enlarged lymph nodes. Miscellaneous: No inguinal hernias are seen. Bones: No aggressive osseous abnormality. Spine degenerative disc disease and facet arthropathy. Right hip arthroplasty. IMPRESSION: Pneumoperitoneum concerning for bowel perforation. Hyperdense material in the lower pelvis suspicious for hemorrhage/clot. Left paramedian supraumbilical ventral hernia which contains loops of small bowel. Hyperdense material noted adjacent to the herniated loops which could represent hemorrhage/clot or unopacified loops of bowel. No active extravasation of contrast identified to suggest active bleeding. Cirrhotic appearing liver. Ill-defined hypoattenuating lesion identified in the anterior right lobe of the liver which could represent artifact or hepatic mass. Recommend non-emergent MRI of the abdomen with and without contrast (hepatic protocol). Cholelithiasis. Severe cardiomegaly with marked dilatation of the atria. Findings discussed with Dr. Salamanca on October 18, 2023 at 4:29 p.m.. Dictated by: Kayla Baer MD, PhD on 10/18/2023 at 16:16 Approved by: Kayla Baer MD, PhD on 10/18/2023 at 16:32 ECG Data Attestation: I personally reviewed and interpreted this ECG as follows: Interpretation: Patient appears to have AFib with a rate of 91 QRS of 156 QTC of 519. Does have some tremor artifact noted patient had some difficulty with movement and left bundle-branch block with a left rightward axis. MDM Narrative Medical decision making narrative: 73-year-old male presents with complaint of shortness of breath increasing over the past couple days has had a little bit of productive green sputum and cough but also has quite a bit of bruising and noted that his hernia incision from 6 days ago has pushed out. Feels quite firm almost like a hematoma does not feel like recurrent hernia on examination. Patient does appear pale and has been on Lovenox and then transition back to his warfarin. Type and cross was ordered as I suspect patient may be anemic and have had some bleeding. He was reportedly hypotensive in the field but is initially 140 systolic in the department with a heart rate in the 70s. Labs white count of 16 hemoglobin of 8, I do not have priors recently but patient had them done at [facility], platelets are 173. INR is 5, EKG shows a rate of 90, AFib rate controlled. Patient's creatinine is 2.8 with a BUN of 47, sodium of 140 potassium 4 2 chloride of 105, bilirubin is 1.8 with normal LFTs otherwise. Lipase is 245 troponin is 0.065 with a BNP of 6410. CT chest abdomen pelvis Patient's heart is quite large on imaging, when I discussed with patient he states he was told his heart was ginormous sometime ago. Patient's blood pressure has been somewhat labile we will have lows followed by 140s over 20s and a 9260. And then we will rebound again. Patient was transfused 1 unit of O-negative does appear quite pale has not been significantly tachycardic but is on metoprolol so may have some blunting of his reflexes. Patient was given a 10 of vitamin K and FFP for reversal of his INR, he is mechanical valve so we will hold on Kcentra. Consulted with Dr. Tinoco general surgery who reviewed patient's images notes no active extravasation on his review and recommends admit to medicine with monitoring transfusion and reversal of INR. Dr. Mckeon: Is happy to see patient but asked for patient to be admitted to Medicine. Reviewed patient's labs findings workup. Also reviewed his prior workups cardiac. Spoke with Dr. Tinoco, he accepts for admission we will place in the intensive care unit. patient is risk for decompensation with his cardiac history, bleeding etc.. Blood pressures have been more improved here in the department and heart rate has also improved. We will see patient likely take to OR but in the morning we will continue to transfuse with plan for 2 units total at this time may give additional depending on outpatient does agrees with plan for vitamin K and FFP. Reviewed patient's CT findings that were relayed by Dr. Baer from Radiology. Patient was seen in the emergency department by Dr. Tinoco. Critical Care Time Critical Care Time Attestation: The high probability of a clinically significant, sudden or life threatening deterioration of the [cardiac, pulm] system(s) required my full and direct attention, intervention and personal management. The aggregate critical care time was [] minutes. This time is in addition to time spent performing reported procedures but includes the following: [x] Data Review and interpretation [x] Patient assessment and monitoring of vital signs [x] Documentation [x] Medication orders and management Discharge Plan Departure Patient Disposition: Admitted As Inpatient Clinical Impression: Post-op bleeding, Symptomatic anemia, VANDANA (acute kidney injury), Supratherapeutic INR Admit Date/Time: 10/18/23 17:44 Admit Provider: Chivo Tinoco
[2023-10-18] MEDS: SODIUM CHLORIDE 0.9% 1,000 ML 150 ML IV ×2 (15:12→20:37)
[2023-10-18 15:15] LABS: Add Manual Diff / Slide Review NO; Basophils Absolute Auto 0 /uL (0-100); Eosinophils Absolute Auto 0 /uL (0-450); Hematocrit 25.3 % (41-53); Hemoglobin 8.5 g/dL (13.5-17.5); Lymphocytes Absolute Auto 500 /uL (1100-4500); Lymphocytes Percent Auto 3.2 % (25-40); Mean Corpuscular HGB Conc 33.6 % (30-36); Mean Corpuscular Volume 101.1 fL (80-100); Monocytes Absolute Auto 1900 /uL (0-900); Monocytes Percent Auto 11.9 % (3-14); Neutrophils Absolute Auto 13600 /uL (1500-7000); Neutrophils Percent Auto 84.9 % (50-75); Platelet Count 173 X10^3/uL (150-400); Red Cell Distribution Width 15.1 % (11.6-14.8)
[2023-10-18 15:20] LABS: PTT Partial Thromboplastin Tim 37 SECONDS (25.1-36.5)
[2023-10-18 15:24] LABS: Albumin 3.8 g/dL (3.5-5.0); Albumin Globulin Ratio 1.4 (1.0-2.8); Alkaline Phosphatase 48 U/L (38-126); Aspartate Aminotransferase 35 IU/L (17-59); BUN Creatinine Ratio 16.7 (6-22); Bilirubin Total 1.8 mg/dL (0.2-1.3); Blood Urea Nitrogen 47 mg/dL (9-20); Calcium 10.9 mg/dL (8.4-10.2); Carbon Dioxide 18 mmol/L (22-32); Chloride 105 mmol/L (98-107); Creatine Kinase 67 U/L (55-170); Estimated Glomerular Filt Rate 23 mL/min (>60); Globulin 2.8 g/dL (1.7-4.1); Glucose 186 mg/dL (80-110); HEMOLYSIS < 15 (0-50); Lipase 245 U/L (23-300); Potassium 4.2 mmol/L (3.4-5.1); Sodium 140 mmol/L (137-145); Total Protein 6.6 g/dL (6.3-8.2)
[2023-10-18 15:32] LABS: Alanine Aminotransferase 30 IU/L (<50)
[2023-10-18 15:33] LABS: NT-proBNP (BNP-Adult 18+) 6410 pg/mL (<125)
[2023-10-18 15:34] LABS: Prothrombin Time 58.1 SECONDS (9.4-12.5)
[2023-10-18 15:36] LABS: Troponin I 0.065 ng/mL (0.01-0.034)
--- NOTE | 2023-10-18 16:01 | TAR.TRANSNT ---
Blood transfusion of O neg started at 1547. Changes not saved in TAR. Blood re-verified with nai Álvarez RN.
--- NOTE | 2023-10-18 16:11 | PC.NURSE ---
Pt woke up this morning and states he was very pale & weak since hernia surgery last wednesday 10/11. Pt's states that pt became extremely weak and SOB and noticed large bulge at surgical site that was not there yesterday. called 911 and pt was transported to the ED. Pt's lower abd purple, genitalia purple and large bulge noted under surgical site. Pt extremities pale and mouth/tongue pale and dry. Pt a&ox4. While in CT pt's systolic bp 60's. Dr Salamanca notfied and ordered 2 units O neg PRBC. Swan catheter placed. Pt remains a&ox4. Denies pain or cp at this time. Denies SOB at this time. pt o2 sat 95% on 3L NC.
[2023-10-18] MEDS: PHYTONADIONE (VIT K1) 10 MG in SODIUM CHLORIDE 0.9% 100 ML 202 MG IV (16:27)
--- NOTE | 2023-10-18 17:30 | PC.NURSE ---
Obtained patient care. Dr Tinoco at bedside consulting with patient and family.
--- NOTE | 2023-10-18 18:07 | PM.HP.1 ---
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 CHF (congestive heart failure) Surgical History History of hip replacement, total (07/2014) History of surgery (~03/2010) History of esophagogastroduodenoscopy (EGD) History of cardiac cath S/P ascending aortic aneurysm repair (07/1994) History of abdominal aortic aneurysm repair Status post colectomy (07/2011) Aortic valve replaced (07/1994) Mitral valve replaced (2009) Social History household members: spouse Smoking Status: Former smoker alcohol intake: never Meds Home Medications and Allergies Home Medications Medication Instructions Recorded Confirmed Type albuterol sulfate 90 mcg/actuation 2 puff inhalation Q6H PRN 09/15/23 10/12/23 History aerosol inhaler (Ventolin HFA) Shortness Of Breath aspirin 81 mg tablet,delayed 81 mg PO DAILY 09/15/23 10/12/23 History release atorvastatin 20 mg tablet 20 mg PO DAILY 09/15/23 10/12/23 History ipratropium bromide 42 mcg (0.06 2 spray intranasal TID 09/15/23 10/12/23 History %) nasal spray loratadine 10 mg tablet (Allergy 10 mg PO DAILY 09/15/23 10/12/23 History Relief (loratadine)) metoprolol succinate 50 mg 50 mg PO BID 09/15/23 10/12/23 History tablet,extended release 24 hr montelukast 10 mg tablet 10 mg PO DAILY 09/15/23 10/12/23 History omeprazole 20 mg capsule,delayed 20 mg PO BID 09/15/23 10/12/23 History release sacubitril 24 mg-valsartan 26 mg 1 tab PO BID 09/15/23 10/12/23 History tablet (Entresto) spironolactone 25 mg tablet 12.5 mg PO DAILY 09/15/23 10/12/23 History torsemide 20 mg tablet 10 mg PO DAILY 09/15/23 10/12/23 History enoxaparin 80 mg SUBCUT DAILY 10/04/23 10/04/23 History acetaminophen 325 mg capsule 650 mg (2 x 325 mg) PO QID PRN 10/12/23 Rx (Tylenol) pain #60 caps docusate sodium 100 mg capsule 100 mg PO BID #30 caps 10/12/23 Rx (Colace) tramadol 50 mg tablet 50 mg PO Q6H PRN pain #15 tabs 10/12/23 Rx warfarin 7.5 mg tablet See Rx Instructions .Route .COMPLEX 10/12/23 10/12/23 History Allergies Allergy/AdvReac Type Severity Reaction Status Date / Time clindamycin [CLINDAMYCIN] Allergy Severe ANAPHYLAXIS Verified 10/18/23 15:02 Penicillins [PENICILLINS] Allergy Unknown CHILDHOOD Verified 10/18/23 15:02 - UNKNOWN REACTION PER PT Sulfa (Sulfonamide Allergy Unknown CHILDHOOD Verified 10/18/23 15:02 Antibiotics) - UNKNOWN [SULFA (SULFONAMIDE REACTION ANTIBIOTICS)] PER PT Exam Vital Signs (past 8 hours): - 10/18/23 14:55 10/18/23 14:57 10/18/23 14:58 Temperature 97.3 F L Pulse Rate 97 H 96 H 91 H Respiratory Rate 22 25 H 26 H Blood Pressure 146/87 H Pulse Oximetry 95 70 L 77 L Oxygen Delivery Method Room Air Oxygen Flow Rate 10/18/23 14:58 10/18/23 15:00 10/18/23 15:01 Temperature Pulse Rate 95 H 91 H Respiratory Rate 27 H 25 H Blood Pressure 146/87 H Pulse Oximetry 80 L 86 L Oxygen Delivery Method Oxygen Flow Rate 10/18/23 15:01 10/18/23 15:11 10/18/23 15:11 Temperature Pulse Rate 98 H Respiratory Rate 27 H Blood Pressure 100/71 109/47 L Pulse Oximetry 89 L Oxygen Delivery Method Oxygen Flow Rate 10/18/23 15:15 10/18/23 15:15 10/18/23 15:20 Temperature Pulse Rate 92 H Respiratory Rate 25 H Blood Pressure 126/58 L 91/54 L Pulse Oximetry 99 Oxygen Delivery Method Oxygen Flow Rate 10/18/23 15:20 10/18/23 15:23 10/18/23 15:23 Temperature Pulse Rate 91 H 97 H Respiratory Rate 28 H 24 Blood Pressure 124/51 L Pulse Oximetry 84 L 97 Oxygen Delivery Method Oxygen Flow Rate 10/18/23 15:26 10/18/23 15:28 10/18/23 15:28 Temperature Pulse Rate 86 98 H Respiratory Rate 27 H Blood Pressure 71/51 L Pulse Oximetry 86 L 79 L Oxygen Delivery Method Oxygen Flow Rate 10/18/23 15:30 10/18/23 15:30 10/18/23 15:35 Temperature Pulse Rate 90 88 Respiratory Rate 26 H 24 Blood Pressure 65/47 L Pulse Oximetry 90 L 94 Oxygen Delivery Method Nasal Cannula Oxygen Flow Rate 3 10/18/23 15:37 10/18/23 15:37 10/18/23 15:40 Temperature Pulse Rate 96 H Respiratory Rate 24 Blood Pressure 97/65 109/53 L Pulse Oximetry 97 Oxygen Delivery Method Oxygen Flow Rate 10/18/23 15:40 10/18/23 15:45 10/18/23 15:45 Temperature 93.9 F L Pulse Rate 89 78 Respiratory Rate 24 24 Blood Pressure 114/56 L Pulse Oximetry 91 95 Oxygen Delivery Method Oxygen Flow Rate 10/18/23 15:47 10/18/23 15:50 10/18/23 15:50 Temperature 97.3 F L 96.1 F L Pulse Rate 80 81 Respiratory Rate 25 H 25 H Blood Pressure 114/56 L 119/52 L Pulse Oximetry 94 Oxygen Delivery Method Oxygen Flow Rate 10/18/23 15:55 10/18/23 15:55 10/18/23 16:00 Temperature 96.6 F L Pulse Rate 81 Respiratory Rate 24 Blood Pressure 101/49 L 110/54 L Pulse Oximetry 96 Oxygen Delivery Method Nasal Cannula Oxygen Flow Rate 3 10/18/23 16:00 10/18/23 16:02 10/18/23 16:05 Temperature 97.3 F L 98.2 F 97.7 F Pulse Rate 79 77 81 Respiratory Rate 25 H 25 H 26 H Blood Pressure 110/54 L Pulse Oximetry 93 92 Oxygen Delivery Method Oxygen Flow Rate 10/18/23 16:05 10/18/23 16:10 10/18/23 16:10 Temperature 97.9 F Pulse Rate 82 Respiratory Rate 22 Blood Pressure 111/55 L 98/53 L Pulse Oximetry 95 Oxygen Delivery Method Oxygen Flow Rate 10/18/23 16:15 10/18/23 16:15 10/18/23 16:20 Temperature 98.1 F 98.4 F Pulse Rate 87 83 Respiratory Rate 22 24 Blood Pressure 112/52 L 115/55 L Pulse Oximetry 96 Oxygen Delivery Method Oxygen Flow Rate 10/18/23 16:20 10/18/23 16:20 10/18/23 16:25 Temperature 98.2 F Pulse Rate 75 Respiratory Rate 23 Blood Pressure 109/54 L 115/55 L Pulse Oximetry 96 Oxygen Delivery Method Oxygen Flow Rate 10/18/23 16:25 10/18/23 16:30 10/18/23 16:30 Temperature 98.4 F 98.4 F Pulse Rate 82 84 Respiratory Rate 24 24 Blood Pressure 105/52 L Pulse Oximetry 94 89 L Oxygen Delivery Method Oxygen Flow Rate 10/18/23 16:35 10/18/23 16:35 10/18/23 16:40 Temperature 98.6 F Pulse Rate 82 Respiratory Rate 22 Blood Pressure 131/56 L 118/59 L Pulse Oximetry 94 Oxygen Delivery Method Oxygen Flow Rate 10/18/23 16:40 10/18/23 16:45 10/18/23 16:45 Temperature 98.6 F 98.6 F Pulse Rate 80 80 Respiratory Rate 26 H 22 Blood Pressure 101/56 L Pulse Oximetry 96 96 Oxygen Delivery Method Nasal Cannula Oxygen Flow Rate 3 10/18/23 16:50 10/18/23 16:50 10/18/23 16:55 Temperature 98.8 F Pulse Rate 80 Respiratory Rate 27 H Blood Pressure 116/58 L 112/56 L Pulse Oximetry 96 Oxygen Delivery Method Oxygen Flow Rate 10/18/23 16:55 10/18/23 17:00 10/18/23 17:00 Temperature 98.8 F 98.8 F Pulse Rate 77 77 Respiratory Rate 23 23 Blood Pressure 113/52 L Pulse Oximetry 97 97 Oxygen Delivery Method Oxygen Flow Rate 10/18/23 17:05 10/18/23 17:05 10/18/23 17:10 Temperature 99.0 F 99 F Pulse Rate 79 87 Respiratory Rate 24 24 Blood Pressure 108/52 L 108/53 L Pulse Oximetry 96 Oxygen Delivery Method Oxygen Flow Rate 10/18/23 17:10 10/18/23 17:10 10/18/23 17:15 Temperature 99.0 F 99.0 F Pulse Rate 80 80 Respiratory Rate 28 H 26 H Blood Pressure 100/53 L Pulse Oximetry 95 95 Oxygen Delivery Method Oxygen Flow Rate 10/18/23 17:15 10/18/23 17:20 10/18/23 17:20 Temperature 99.0 F Pulse Rate 77 Respiratory Rate 29 H Blood Pressure 106/63 108/54 L Pulse Oximetry 95 Oxygen Delivery Method Oxygen Flow Rate 10/18/23 17:25 10/18/23 17:25 10/18/23 17:30 Temperature 99.0 F Pulse Rate 76 Respiratory Rate 32 H Blood Pressure 113/64 113/57 L Pulse Oximetry 95 Oxygen Delivery Method Oxygen Flow Rate 10/18/23 17:30 10/18/23 17:35 10/18/23 17:36 Temperature 99.0 F 99.0 F Pulse Rate 84 78 Respiratory Rate 29 H 31 H Blood Pressure 120/56 L Pulse Oximetry 96 92 Oxygen Delivery Method Nasal Cannula Nasal Cannula Oxygen Flow Rate 3 3 10/18/23 17:36 10/18/23 18:00 10/18/23 18:02 Temperature 99.0 F 99.1 F 99.1 F Pulse Rate 75 83 83 Respiratory Rate 29 H 18 18 Blood Pressure 114/59 L 114/59 L Pulse Oximetry 94 Oxygen Delivery Method Nasal Cannula Oxygen Flow Rate 3 10/18/23 18:05 Temperature 99.1 F Pulse Rate 83 Respiratory Rate 26 H Blood Pressure 122/53 L Pulse Oximetry Oxygen Delivery Method Oxygen Flow Rate Oxygen Delivery Method Nasal Cannula Oxygen Flow Rate 3 Objective Labs 10/18/23 15:01 10/18/23 15:01 Labs: Laboratory Results - last 24 hr 10/18/23 10/18/23 15:01 15:18 WBC 16.0 H RBC 2.50 L Hgb 8.5 L Hct 25.3 L MCV 101.1 H MCH 34.0 MCHC 33.6 RDW 15.1 H Plt Count 173 Neut % (Auto) 84.9 H Lymph % (Auto) 3.2 L [place] % (Auto) 11.9 Eos % (Auto) 0.0 L Baso % (Auto) 0.0 Neut # (Auto) 99424 H Lymph # (Auto) 500 L [place] # (Auto) 1900 H Eos # (Auto) 0 Baso # (Auto) 0 PT 58.1 H INR 5.0 H* APTT 37 H Sodium 140 Potassium 4.2 Chloride 105 Carbon Dioxide 18 L BUN 47 H Creatinine 2.81 H Estimated GFR 23 L BUN/Creatinine Ratio 16.7 Glucose 186 H Calcium 10.9 H Total Bilirubin 1.8 H AST 35 ALT 30 Alkaline Phosphatase 48 Total Creatine Kinase 67 Troponin I 0.065 H NT-Pro-B Natriuret Pep 6410 H Total Protein 6.6 Albumin 3.8 Globulin 2.8 Albumin/Globulin Ratio 1.4 Lipase 245 Blood Type O Positive Antibody Screen Negative Crossmatch See Detail
--- NOTE | 2023-10-18 18:15 | P.CALLCOV_ITS ---
Call Coverage Note Note Date of Patient Contact: 10/18/23 Time of Patient Contact: 18:15 Narrative of Care Provided: 73M PMH CHF, Mech valve on chronic anticoagulation, colon cancer 6 days sp open repair of incisional hernia . Several days of coughing developed abdominal wall bulge today and large hematoma, minimal appetite. At admission hemodynamically stable, no peritonitis, Cr 2.8 baseline 1.0, INR 5.0, Hct 25 from 37 BNP 6500, Trop 0.065. CT intra abdominal hematoma and abdominal wall hematoma with recurrent hernia. A/P Clears until midnight 2 units PRBC INR reversal [facility] OR tomorrow for abdominal washout evacuation of hematoma and repair of hernia CT reviewed pneumoperitonieum from recent surgery doubt bowel perf. Discussed with tele sales recruitment specialist Full note to follow
--- NOTE | 2023-10-18 19:19 | P.HP_ITS ---
History of Present Illness History of Present Illness Date Patient Seen: 10/18/23 Time Patient Seen: 19:19 Chief complaint: SOB Narrative: Jurgen Nguyen is a 73-year-old man with a remote history of colon cancer who is postoperative day 6 status post repair of an incisional hernia. He has a history of mechanical mitral and aortic valve replacement on chronic anti coagulation with warfarin who was bridged with Lovenox for his surgery. His medical history is significant for aortic root repair, CVA, atrial fibriliation, CHF with mildly reduced LV EF. He resumed warfarin POD 0 and Lovenox POD 1. A few days after surgery he developed a significant cough and was noted to have significant abdominal wall bruising and yesterday the development of a lump at the site of hernia repair left lower quadrant. He felt dizzy and short of breath today and was brought to the [facility] Emergency room by EMS for evaluation. At admission afebrile, blood pressure 150/90 heart rate 90, respiratory rate 25 on 3 L of oxygen. Laboratory studies significant for WBC 16, hematocrit 25 baseline 37, platelets 170, INR 5.0, creatinine 2.81 baseline 1.0 BNP 6400, troponin 0.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 CHF (congestive heart failure) Surgical History History of hip replacement, total (07/2014) History of surgery (~03/2010) History of esophagogastroduodenoscopy (EGD) History of cardiac cath S/P ascending aortic aneurysm repair (07/1994) History of abdominal aortic aneurysm repair Status post colectomy (07/2011) Aortic valve replaced (07/1994) Mitral valve replaced (2009) Social History household members: spouse Smoking Status: Former smoker alcohol intake: never Meds Home Medications and Allergies Home Medications Medication Instructions Recorded Confirmed Type albuterol sulfate 90 mcg/actuation 2 puff inhalation Q6H PRN 09/15/23 10/18/23 History aerosol inhaler (Ventolin HFA) Shortness Of Breath atorvastatin 20 mg tablet 20 mg PO DAILY 09/15/23 10/18/23 History ipratropium bromide 42 mcg (0.06 2 spray intranasal TID 09/15/23 10/18/23 History %) nasal spray loratadine 10 mg tablet (Allergy 10 mg PO DAILY 09/15/23 10/18/23 History Relief (loratadine)) metoprolol succinate 50 mg 50 mg PO BID 09/15/23 10/18/23 History tablet,extended release 24 hr montelukast 10 mg tablet 10 mg PO DAILY 09/15/23 10/18/23 History omeprazole 20 mg capsule,delayed 20 mg PO BID 09/15/23 10/18/23 History release sacubitril 24 mg-valsartan 26 mg 1 tab PO BID 09/15/23 10/18/23 History tablet (Entresto) spironolactone 25 mg tablet 12.5 mg PO DAILY 09/15/23 10/18/23 History torsemide 20 mg tablet 10 mg PO DAILY 09/15/23 10/18/23 History enoxaparin 80 mg SUBCUT DAILY 10/04/23 10/18/23 History acetaminophen 325 mg capsule 650 mg (2 x 325 mg) PO QID PRN 10/12/23 10/18/23 Rx (Tylenol) pain #60 caps warfarin 7.5 mg tablet See Rx Instructions .Route .COMPLEX 10/12/23 10/18/23 History aspirin 81 mg tablet,delayed 81 mg PO DAILY 10/18/23 10/18/23 History release cholecalciferol (vitamin D3) 25 25 mcg PO DAILY 10/18/23 10/18/23 History mcg (1,000 unit) tablet docusate sodium 100 mg capsule 100 mg PO BID PRN Constipation 10/18/23 10/18/23 History (Colace) Allergies Allergy/AdvReac Type Severity Reaction Status Date / Time clindamycin [CLINDAMYCIN] Allergy Severe ANAPHYLAXIS Verified 10/18/23 15:02 Penicillins [PENICILLINS] Allergy Unknown CHILDHOOD Verified 10/18/23 15:02 - UNKNOWN REACTION PER PT Sulfa (Sulfonamide Allergy Unknown CHILDHOOD Verified 10/18/23 15:02 Antibiotics) - UNKNOWN [SULFA (SULFONAMIDE REACTION ANTIBIOTICS)] PER PT Exam Vital Signs (past 8 hours): - 10/18/23 14:55 10/18/23 14:57 10/18/23 14:58 Temperature 97.3 F L Pulse Rate 97 H 96 H 91 H Respiratory Rate 22 25 H 26 H Blood Pressure 146/87 H Pulse Oximetry 95 70 L 77 L Oxygen Delivery Method Room Air Oxygen Flow Rate 10/18/23 14:58 10/18/23 15:00 10/18/23 15:01 Temperature Pulse Rate 95 H 91 H Respiratory Rate 27 H 25 H Blood Pressure 146/87 H Pulse Oximetry 80 L 86 L Oxygen Delivery Method Oxygen Flow Rate 10/18/23 15:01 10/18/23 15:11 10/18/23 15:11 Temperature Pulse Rate 98 H Respiratory Rate 27 H Blood Pressure 100/71 109/47 L Pulse Oximetry 89 L Oxygen Delivery Method Oxygen Flow Rate 10/18/23 15:15 10/18/23 15:15 10/18/23 15:20 Temperature Pulse Rate 92 H Respiratory Rate 25 H Blood Pressure 126/58 L 91/54 L Pulse Oximetry 99 Oxygen Delivery Method Oxygen Flow Rate 10/18/23 15:20 10/18/23 15:23 10/18/23 15:23 Temperature Pulse Rate 91 H 97 H Respiratory Rate 28 H 24 Blood Pressure 124/51 L Pulse Oximetry 84 L 97 Oxygen Delivery Method Oxygen Flow Rate 10/18/23 15:26 10/18/23 15:28 10/18/23 15:28 Temperature Pulse Rate 86 98 H Respiratory Rate 27 H Blood Pressure 71/51 L Pulse Oximetry 86 L 79 L Oxygen Delivery Method Oxygen Flow Rate 10/18/23 15:30 10/18/23 15:30 10/18/23 15:35 Temperature Pulse Rate 90 88 Respiratory Rate 26 H 24 Blood Pressure 65/47 L Pulse Oximetry 90 L 94 Oxygen Delivery Method Nasal Cannula Oxygen Flow Rate 3 10/18/23 15:37 10/18/23 15:37 10/18/23 15:40 Temperature Pulse Rate 96 H Respiratory Rate 24 Blood Pressure 97/65 109/53 L Pulse Oximetry 97 Oxygen Delivery Method Oxygen Flow Rate 10/18/23 15:40 10/18/23 15:45 10/18/23 15:45 Temperature 93.9 F L Pulse Rate 89 78 Respiratory Rate 24 24 Blood Pressure 114/56 L Pulse Oximetry 91 95 Oxygen Delivery Method Oxygen Flow Rate 10/18/23 15:47 10/18/23 15:50 10/18/23 15:50 Temperature 97.3 F L 96.1 F L Pulse Rate 80 81 Respiratory Rate 25 H 25 H Blood Pressure 114/56 L 119/52 L Pulse Oximetry 94 Oxygen Delivery Method Oxygen Flow Rate 10/18/23 15:55 10/18/23 15:55 10/18/23 16:00 Temperature 96.6 F L Pulse Rate 81 Respiratory Rate 24 Blood Pressure 101/49 L 110/54 L Pulse Oximetry 96 Oxygen Delivery Method Nasal Cannula Oxygen Flow Rate 3 10/18/23 16:00 10/18/23 16:02 10/18/23 16:05 Temperature 97.3 F L 98.2 F 97.7 F Pulse Rate 79 77 81 Respiratory Rate 25 H 25 H 26 H Blood Pressure 110/54 L Pulse Oximetry 93 92 Oxygen Delivery Method Oxygen Flow Rate 10/18/23 16:05 10/18/23 16:10 10/18/23 16:10 Temperature 97.9 F Pulse Rate 82 Respiratory Rate 22 Blood Pressure 111/55 L 98/53 L Pulse Oximetry 95 Oxygen Delivery Method Oxygen Flow Rate 10/18/23 16:15 10/18/23 16:15 10/18/23 16:20 Temperature 98.1 F 98.4 F Pulse Rate 87 83 Respiratory Rate 22 24 Blood Pressure 112/52 L 115/55 L Pulse Oximetry 96 Oxygen Delivery Method Oxygen Flow Rate 10/18/23 16:20 10/18/23 16:20 10/18/23 16:25 Temperature 98.2 F Pulse Rate 75 Respiratory Rate 23 Blood Pressure 109/54 L 115/55 L Pulse Oximetry 96 Oxygen Delivery Method Oxygen Flow Rate 10/18/23 16:25 10/18/23 16:30 10/18/23 16:30 Temperature 98.4 F 98.4 F Pulse Rate 82 84 Respiratory Rate 24 24 Blood Pressure 105/52 L Pulse Oximetry 94 89 L Oxygen Delivery Method Oxygen Flow Rate 10/18/23 16:35 10/18/23 16:35 10/18/23 16:40 Temperature 98.6 F Pulse Rate 82 Respiratory Rate 22 Blood Pressure 131/56 L 118/59 L Pulse Oximetry 94 Oxygen Delivery Method Oxygen Flow Rate 10/18/23 16:40 10/18/23 16:45 10/18/23 16:45 Temperature 98.6 F 98.6 F Pulse Rate 80 80 Respiratory Rate 26 H 22 Blood Pressure 101/56 L Pulse Oximetry 96 96 Oxygen Delivery Method Nasal Cannula Oxygen Flow Rate 3 10/18/23 16:50 10/18/23 16:50 10/18/23 16:55 Temperature 98.8 F Pulse Rate 80 Respiratory Rate 27 H Blood Pressure 116/58 L 112/56 L Pulse Oximetry 96 Oxygen Delivery Method Oxygen Flow Rate 10/18/23 16:55 10/18/23 17:00 10/18/23 17:00 Temperature 98.8 F 98.8 F Pulse Rate 77 77 Respiratory Rate 23 23 Blood Pressure 113/52 L Pulse Oximetry 97 97 Oxygen Delivery Method Oxygen Flow Rate 10/18/23 17:05 10/18/23 17:05 10/18/23 17:10 Temperature 99.0 F 99 F Pulse Rate 79 87 Respiratory Rate 24 24 Blood Pressure 108/52 L 108/53 L Pulse Oximetry 96 Oxygen Delivery Method Oxygen Flow Rate 10/18/23 17:10 10/18/23 17:10 10/18/23 17:15 Temperature 99.0 F 99.0 F Pulse Rate 80 80 Respiratory Rate 28 H 26 H Blood Pressure 100/53 L Pulse Oximetry 95 95 Oxygen Delivery Method Oxygen Flow Rate 10/18/23 17:15 10/18/23 17:20 10/18/23 17:20 Temperature 99.0 F Pulse Rate 77 Respiratory Rate 29 H Blood Pressure 106/63 108/54 L Pulse Oximetry 95 Oxygen Delivery Method Oxygen Flow Rate 10/18/23 17:25 10/18/23 17:25 10/18/23 17:30 Temperature 99.0 F Pulse Rate 76 Respiratory Rate 32 H Blood Pressure 113/64 113/57 L Pulse Oximetry 95 Oxygen Delivery Method Oxygen Flow Rate 10/18/23 17:30 10/18/23 17:35 10/18/23 17:36 Temperature 99.0 F 99.0 F Pulse Rate 84 78 Respiratory Rate 29 H 31 H Blood Pressure 120/56 L Pulse Oximetry 96 92 Oxygen Delivery Method Nasal Cannula Nasal Cannula Oxygen Flow Rate 3 3 10/18/23 17:36 10/18/23 17:40 10/18/23 17:40 Temperature 99.0 F 99.1 F Pulse Rate 75 78 Respiratory Rate 29 H 28 H Blood Pressure 122/60 Pulse Oximetry 94 95 Oxygen Delivery Method Nasal Cannula Nasal Cannula Oxygen Flow Rate 3 3 10/18/23 17:45 10/18/23 17:45 10/18/23 17:50 Temperature 99.1 F Pulse Rate 79 Respiratory Rate 29 H Blood Pressure 125/57 L 142/62 H Pulse Oximetry 95 Oxygen Delivery Method Nasal Cannula Oxygen Flow Rate 3 10/18/23 17:50 10/18/23 17:55 10/18/23 17:55 Temperature 99.1 F 99.1 F Pulse Rate 79 77 Respiratory Rate 33 H 33 H Blood Pressure 117/58 L Pulse Oximetry 96 97 Oxygen Delivery Method Nasal Cannula Nasal Cannula Oxygen Flow Rate 3 3 10/18/23 18:00 10/18/23 18:00 10/18/23 18:00 Temperature 99.1 F 99.1 F Pulse Rate 83 75 Respiratory Rate 18 29 H Blood Pressure 114/59 L 114/59 L Pulse Oximetry 98 Oxygen Delivery Method Nasal Cannula Oxygen Flow Rate 3 10/18/23 18:02 10/18/23 18:05 10/18/23 18:05 Temperature 99.1 F 99.1 F 99.3 F Pulse Rate 83 83 85 Respiratory Rate 18 26 H 32 H Blood Pressure 114/59 L 122/53 L Pulse Oximetry 96 Oxygen Delivery Method Nasal Cannula Oxygen Flow Rate 3 10/18/23 18:05 10/18/23 18:10 10/18/23 18:10 Temperature 99.3 F Pulse Rate 78 Respiratory Rate 31 H Blood Pressure 122/53 L 108/59 L Pulse Oximetry 94 Oxygen Delivery Method Nasal Cannula Oxygen Flow Rate 3 10/18/23 18:15 10/18/23 18:15 10/18/23 18:15 Temperature 99.3 F 99.3 F Pulse Rate 79 79 Respiratory Rate 32 H 32 H Blood Pressure 116/59 L 116/59 L Pulse Oximetry 96 Oxygen Delivery Method Nasal Cannula Oxygen Flow Rate 3 10/18/23 18:20 10/18/23 18:20 10/18/23 18:25 Temperature 99.3 F Pulse Rate 80 Respiratory Rate 34 H Blood Pressure 111/56 L 111/55 L Pulse Oximetry 98 Oxygen Delivery Method Nasal Cannula Oxygen Flow Rate 3 10/18/23 18:25 10/18/23 18:30 10/18/23 18:30 Temperature 99.3 F 99.3 F 99.3 F Pulse Rate 77 82 82 Respiratory Rate 32 H 21 32 H Blood Pressure 124/54 L Pulse Oximetry 97 96 Oxygen Delivery Method Nasal Cannula Nasal Cannula Oxygen Flow Rate 3 3 10/18/23 18:30 10/18/23 18:35 10/18/23 18:35 Temperature 99.5 F Pulse Rate 80 Respiratory Rate 31 H Blood Pressure 124/54 L 118/62 Pulse Oximetry 95 Oxygen Delivery Method Nasal Cannula Oxygen Flow Rate 3 10/18/23 18:40 10/18/23 18:40 Temperature 99.5 F Pulse Rate 78 Respiratory Rate 32 H Blood Pressure 116/58 L Pulse Oximetry 96 Oxygen Delivery Method Nasal Cannula Oxygen Flow Rate 3 Oxygen Delivery Method Nasal Cannula Oxygen Flow Rate 3 Narrative Exam Narrative: General elderly man alert oriented in no distress Chest mildly labored respirations nasal cannula 3 liters/minute Cardiac rate controlled AFib Abdomen extensive abdominal wall ecchymoses with hematoma at the site of surgical incision. No peritonitis Extremities warm well perfused Objective Labs 10/18/23 15:01 10/18/23 15:01 Labs: Laboratory Results - last 24 hr 10/18/23 10/18/23 15:01 15:18 WBC 16.0 H RBC 2.50 L Hgb 8.5 L Hct 25.3 L MCV 101.1 H MCH 34.0 MCHC 33.6 RDW 15.1 H Plt Count 173 Neut % (Auto) 84.9 H Lymph % (Auto) 3.2 L [place] % (Auto) 11.9 Eos % (Auto) 0.0 L Baso % (Auto) 0.0 Neut # (Auto) 69507 H Lymph # (Auto) 500 L [place] # (Auto) 1900 H Eos # (Auto) 0 Baso # (Auto) 0 PT 58.1 H INR 5.0 H* APTT 37 H Sodium 140 Potassium 4.2 Chloride 105 Carbon Dioxide 18 L BUN 47 H Creatinine 2.81 H Estimated GFR 23 L BUN/Creatinine Ratio 16.7 Glucose 186 H Calcium 10.9 H Total Bilirubin 1.8 H AST 35 ALT 30 Alkaline Phosphatase 48 Total Creatine Kinase 67 Troponin I 0.065 H NT-Pro-B Natriuret Pep 6410 H Total Protein 6.6 Albumin 3.8 Globulin 2.8 Albumin/Globulin Ratio 1.4 Lipase 245 Blood Type O Positive Antibody Screen Negative Crossmatch See Detail Assessment & Plan Assessment and plan (1) Supratherapeutic INR: Status: Acute (2) VANDANA (acute kidney injury): Status: Acute (3) Post-op bleeding: Qualifiers: Procedure type: musculoskeletal Surgical complication system/body Area: musculoskeletal system Qualified Code(s): M96.830 - Postprocedural hemorrhage of a musculoskeletal structure following a musculoskeletal system procedure Status: Acute Assessment & Plan narrative: Jurgen is a 73-year-old man with significant medical comorbidities who is anticoagulated for mechanical valves and has developed a large intra-abdominal and abdominal wall hematoma with recurrence of his incisional hernia. I suspect his postoperative coughing has resulted in failure of the hernia and contributed significantly to his postoperative hemorrhage. He is intravascularly depleted with a resulting acute kidney injury and will need careful resuscitation in the ICU as he has underlying congestive heart failure. He will need reversal of the supratherapeutic INR. In regards to the abdominal hematoma and hernia reoccurence he needs drainage of the intra abdominal hematoma to improve his respiratory status and the hernia will need revision as he currently has a loop of intestine within the fascial defect without bowel obstruction. I have reviewed the CT personally and finding of pneumoperitoneum is noted however I suspect this is result of recent surgery less likely perforated viscus. The operation carries significant risk of morbidity and this was discussed with the patient and his in the emergency department. The alternative is non operative management however it leaves him with risk of impending hernia incarceration/strangulation, and reabsorption of the hematoma will be protracted. #Supratheraputic INR-FFP preop INR goal 1.5. Hold Warfarin #Post operative bleed/anemia-2 units PRBCs now favor blood over crystalloid in setting of CHF #Recurrent hernia/Intra abdominal hematoma-OR tomorrow 10/18 late afternoon for abdominal washout and repair of hernia #DVT-SCDs only chemical prophylaxis contra indicated #Diet-Ok for clears NPO @midnight #Tele ICU consult recommendations are appreciated
--- NOTE | 2023-10-18 19:31 | P.CONS_ITS ---
History of Present Illness Consult details Date Patient Seen: 10/18/23 Time Patient Seen: 19:32 Chief complaint: SOB Reason for consult: Multiple medical problems including prosthetic valves, CHF, AFib Narrative: This is a very pleasant 73-year-old patient of Dr. brand who presents to the ER via 911 with complaints of shortness of breath. 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 Tinoco. Patient is on chronic Coumadin due to prosthetic valves and atrial fibrillation and previous TIA and he was bridged with Lovenox. He is now off of this. He was seen at the [facility] Cou[facility] clinic yesterday in his INR was 2.8. This morning he felt he was having some sinus drainage and he was concerned about a possible sinusitis. He had no other symptoms and then developed difficulty breathing in noticed large hematoma on his abdomen. Initially they were going to be seen in the clinic and then when he developed shortness of breath and these other issues were noticed 911 was called. In the ER he was found to have a hemoglobin in the 8 range and INR [address] scan showed blood in his abdominal cavity. He was transfused 1 unit of blood in the ER and 2nd 1 has been hung. He states he feeling much better and his breathing is much better. The patient has been having bowel movements. He had a small 1 today. He has not been very hungry and has not been eating much. He denies any abdominal pain other than incisional pain. He denies any fevers or chills. His shortness of breath develop this morning. He also was noted to have lower extremity edema. He has not had any chest pain. He denies palpitations lightheadedness or dizziness. He denies any blood in his urine or in his stool. He did not think the bruising on his abdomen was significant because he states he always has bruising. Past medical history: 1. Prosthetic aortic valve 2. 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 Aortic root repair 4. History of colon cancer status post surgical treatment and chemotherapy in 2011 5. Atrial fibrillation 6. Chronic anticoagulation 7. History of TIA 8. History of GI bleed and apparently this was how his colon cancer was diagnosed 9. Congestive heart failure with cor pulmonale and mildly reduced ejection fraction 10. Hypercalcemia with previous workup for hyperparathyroidism 11. Anemia Current medications: Metoprolol 50 mg extended release once daily, spironolactone 12.5 mg daily, torsemide 20 mg daily, omeprazole 20 mg daily, unclear if he started the Entresto, montelukast 10 mg daily, warfarin 7.5 mg daily, losartan 50 mg daily, Ventolin as needed Allergies: 1. Sulfa 2. BERTRAM inhibitors 3. Clindamycin In the past patient has been unable to tolerate Jardiance and was on Entresto but did had difficulty paying for it in this was restarted in August by his data virtualization consultant Dr. Kym devi Past surgical history 1. Aortic valve replacement 2. Mitral valve replacement 3. Partial colectomy 4. Aortic graft resection Family history: Mom of non-Hodgkin's lymphoma Dad from aortic aneurism I am not sure what location Health related behavior Patient smoked until 1978 Patient drank until 1983 Social history: Patient is his 's name is Kali and she is present at bedside Patient is retired. He lives in [facility] and has 2 children 12 point review of systems is negative other than above Lower extremity edema is new today Decreased appetite Patient has been coughing when he drinks water. Denies chest pain or palpitations or lightheadedness or dizziness Meds Home Medications and Allergies Home Medications Medication Instructions Recorded Confirmed Type albuterol sulfate 90 mcg/actuation 2 puff inhalation Q6H PRN 09/15/23 10/18/23 History aerosol inhaler (Ventolin HFA) Shortness Of Breath atorvastatin 20 mg tablet 20 mg PO DAILY 09/15/23 10/18/23 History ipratropium bromide 42 mcg (0.06 2 spray intranasal TID 09/15/23 10/18/23 History %) nasal spray loratadine 10 mg tablet (Allergy 10 mg PO DAILY 09/15/23 10/18/23 History Relief (loratadine)) metoprolol succinate 50 mg 50 mg PO BID 09/15/23 10/18/23 History tablet,extended release 24 hr montelukast 10 mg tablet 10 mg PO DAILY 09/15/23 10/18/23 History omeprazole 20 mg capsule,delayed 20 mg PO BID 09/15/23 10/18/23 History release sacubitril 24 mg-valsartan 26 mg 1 tab PO BID 09/15/23 10/18/23 History tablet (Entresto) spironolactone 25 mg tablet 12.5 mg PO DAILY 09/15/23 10/18/23 History torsemide 20 mg tablet 10 mg PO DAILY 09/15/23 10/18/23 History enoxaparin 80 mg SUBCUT DAILY 10/04/23 10/18/23 History acetaminophen 325 mg capsule 650 mg (2 x 325 mg) PO QID PRN 10/12/23 10/18/23 Rx (Tylenol) pain #60 caps warfarin 7.5 mg tablet See Rx Instructions .Route .COMPLEX 10/12/23 10/18/23 History aspirin 81 mg tablet,delayed 81 mg PO DAILY 10/18/23 10/18/23 History release cholecalciferol (vitamin D3) 25 25 mcg PO DAILY 10/18/23 10/18/23 History mcg (1,000 unit) tablet docusate sodium 100 mg capsule 100 mg PO BID PRN Constipation 10/18/23 10/18/23 History (Colace) Allergies Allergy/AdvReac Type Severity Reaction Status Date / Time clindamycin [CLINDAMYCIN] Allergy Severe ANAPHYLAXIS Verified 10/18/23 15:02 Penicillins [PENICILLINS] Allergy Unknown CHILDHOOD Verified 10/18/23 15:02 - UNKNOWN REACTION PER PT Sulfa (Sulfonamide Allergy Unknown CHILDHOOD Verified 10/18/23 15:02 Antibiotics) - UNKNOWN [SULFA (SULFONAMIDE REACTION ANTIBIOTICS)] PER PT Review of Systems Review of Systems Narrative: 12 point review of systems as above Exam Vital Signs (past 8 hours): - 10/18/23 14:55 10/18/23 14:57 10/18/23 14:58 Temperature 97.3 F L Pulse Rate 97 H 96 H 91 H Respiratory Rate 22 25 H 26 H Blood Pressure 146/87 H Pulse Oximetry 95 70 L 77 L Oxygen Delivery Method Room Air Oxygen Flow Rate 10/18/23 14:58 10/18/23 15:00 10/18/23 15:01 Temperature Pulse Rate 95 H 91 H Respiratory Rate 27 H 25 H Blood Pressure 146/87 H Pulse Oximetry 80 L 86 L Oxygen Delivery Method Oxygen Flow Rate 10/18/23 15:01 10/18/23 15:11 10/18/23 15:11 Temperature Pulse Rate 98 H Respiratory Rate 27 H Blood Pressure 100/71 109/47 L Pulse Oximetry 89 L Oxygen Delivery Method Oxygen Flow Rate 10/18/23 15:15 10/18/23 15:15 10/18/23 15:20 Temperature Pulse Rate 92 H Respiratory Rate 25 H Blood Pressure 126/58 L 91/54 L Pulse Oximetry 99 Oxygen Delivery Method Oxygen Flow Rate 10/18/23 15:20 10/18/23 15:23 10/18/23 15:23 Temperature Pulse Rate 91 H 97 H Respiratory Rate 28 H 24 Blood Pressure 124/51 L Pulse Oximetry 84 L 97 Oxygen Delivery Method Oxygen Flow Rate 10/18/23 15:26 10/18/23 15:28 10/18/23 15:28 Temperature Pulse Rate 86 98 H Respiratory Rate 27 H Blood Pressure 71/51 L Pulse Oximetry 86 L 79 L Oxygen Delivery Method Oxygen Flow Rate 10/18/23 15:30 10/18/23 15:30 10/18/23 15:35 Temperature Pulse Rate 90 88 Respiratory Rate 26 H 24 Blood Pressure 65/47 L Pulse Oximetry 90 L 94 Oxygen Delivery Method Nasal Cannula Oxygen Flow Rate 3 10/18/23 15:37 10/18/23 15:37 10/18/23 15:40 Temperature Pulse Rate 96 H Respiratory Rate 24 Blood Pressure 97/65 109/53 L Pulse Oximetry 97 Oxygen Delivery Method Oxygen Flow Rate 10/18/23 15:40 10/18/23 15:45 10/18/23 15:45 Temperature 93.9 F L Pulse Rate 89 78 Respiratory Rate 24 24 Blood Pressure 114/56 L Pulse Oximetry 91 95 Oxygen Delivery Method Oxygen Flow Rate 10/18/23 15:47 10/18/23 15:50 10/18/23 15:50 Temperature 97.3 F L 96.1 F L Pulse Rate 80 81 Respiratory Rate 25 H 25 H Blood Pressure 114/56 L 119/52 L Pulse Oximetry 94 Oxygen Delivery Method Oxygen Flow Rate 10/18/23 15:55 10/18/23 15:55 10/18/23 16:00 Temperature 96.6 F L Pulse Rate 81 Respiratory Rate 24 Blood Pressure 101/49 L 110/54 L Pulse Oximetry 96 Oxygen Delivery Method Nasal Cannula Oxygen Flow Rate 3 10/18/23 16:00 10/18/23 16:02 10/18/23 16:05 Temperature 97.3 F L 98.2 F 97.7 F Pulse Rate 79 77 81 Respiratory Rate 25 H 25 H 26 H Blood Pressure 110/54 L Pulse Oximetry 93 92 Oxygen Delivery Method Oxygen Flow Rate 10/18/23 16:05 10/18/23 16:10 10/18/23 16:10 Temperature 97.9 F Pulse Rate 82 Respiratory Rate 22 Blood Pressure 111/55 L 98/53 L Pulse Oximetry 95 Oxygen Delivery Method Oxygen Flow Rate 10/18/23 16:15 10/18/23 16:15 10/18/23 16:20 Temperature 98.1 F 98.4 F Pulse Rate 87 83 Respiratory Rate 22 24 Blood Pressure 112/52 L 115/55 L Pulse Oximetry 96 Oxygen Delivery Method Oxygen Flow Rate 10/18/23 16:20 10/18/23 16:20 10/18/23 16:25 Temperature 98.2 F Pulse Rate 75 Respiratory Rate 23 Blood Pressure 109/54 L 115/55 L Pulse Oximetry 96 Oxygen Delivery Method Oxygen Flow Rate 10/18/23 16:25 10/18/23 16:30 10/18/23 16:30 Temperature 98.4 F 98.4 F Pulse Rate 82 84 Respiratory Rate 24 24 Blood Pressure 105/52 L Pulse Oximetry 94 89 L Oxygen Delivery Method Oxygen Flow Rate 10/18/23 16:35 10/18/23 16:35 10/18/23 16:40 Temperature 98.6 F Pulse Rate 82 Respiratory Rate 22 Blood Pressure 131/56 L 118/59 L Pulse Oximetry 94 Oxygen Delivery Method Oxygen Flow Rate 10/18/23 16:40 10/18/23 16:45 10/18/23 16:45 Temperature 98.6 F 98.6 F Pulse Rate 80 80 Respiratory Rate 26 H 22 Blood Pressure 101/56 L Pulse Oximetry 96 96 Oxygen Delivery Method Nasal Cannula Oxygen Flow Rate 3 10/18/23 16:50 10/18/23 16:50 10/18/23 16:55 Temperature 98.8 F Pulse Rate 80 Respiratory Rate 27 H Blood Pressure 116/58 L 112/56 L Pulse Oximetry 96 Oxygen Delivery Method Oxygen Flow Rate 10/18/23 16:55 10/18/23 17:00 10/18/23 17:00 Temperature 98.8 F 98.8 F Pulse Rate 77 77 Respiratory Rate 23 23 Blood Pressure 113/52 L Pulse Oximetry 97 97 Oxygen Delivery Method Oxygen Flow Rate 10/18/23 17:05 10/18/23 17:05 10/18/23 17:10 Temperature 99.0 F 99 F Pulse Rate 79 87 Respiratory Rate 24 24 Blood Pressure 108/52 L 108/53 L Pulse Oximetry 96 Oxygen Delivery Method Oxygen Flow Rate 10/18/23 17:10 10/18/23 17:10 10/18/23 17:15 Temperature 99.0 F 99.0 F Pulse Rate 80 80 Respiratory Rate 28 H 26 H Blood Pressure 100/53 L Pulse Oximetry 95 95 Oxygen Delivery Method Oxygen Flow Rate 10/18/23 17:15 10/18/23 17:20 10/18/23 17:20 Temperature 99.0 F Pulse Rate 77 Respiratory Rate 29 H Blood Pressure 106/63 108/54 L Pulse Oximetry 95 Oxygen Delivery Method Oxygen Flow Rate 10/18/23 17:25 10/18/23 17:25 10/18/23 17:30 Temperature 99.0 F Pulse Rate 76 Respiratory Rate 32 H Blood Pressure 113/64 113/57 L Pulse Oximetry 95 Oxygen Delivery Method Oxygen Flow Rate 10/18/23 17:30 10/18/23 17:35 10/18/23 17:36 Temperature 99.0 F 99.0 F Pulse Rate 84 78 Respiratory Rate 29 H 31 H Blood Pressure 120/56 L Pulse Oximetry 96 92 Oxygen Delivery Method Nasal Cannula Nasal Cannula Oxygen Flow Rate 3 3 10/18/23 17:36 10/18/23 17:40 10/18/23 17:40 Temperature 99.0 F 99.1 F Pulse Rate 75 78 Respiratory Rate 29 H 28 H Blood Pressure 122/60 Pulse Oximetry 94 95 Oxygen Delivery Method Nasal Cannula Nasal Cannula Oxygen Flow Rate 3 3 10/18/23 17:45 10/18/23 17:45 10/18/23 17:50 Temperature 99.1 F Pulse Rate 79 Respiratory Rate 29 H Blood Pressure 125/57 L 142/62 H Pulse Oximetry 95 Oxygen Delivery Method Nasal Cannula Oxygen Flow Rate 3 10/18/23 17:50 10/18/23 17:55 10/18/23 17:55 Temperature 99.1 F 99.1 F Pulse Rate 79 77 Respiratory Rate 33 H 33 H Blood Pressure 117/58 L Pulse Oximetry 96 97 Oxygen Delivery Method Nasal Cannula Nasal Cannula Oxygen Flow Rate 3 3 10/18/23 18:00 10/18/23 18:00 10/18/23 18:00 Temperature 99.1 F 99.1 F Pulse Rate 83 75 Respiratory Rate 18 29 H Blood Pressure 114/59 L 114/59 L Pulse Oximetry 98 Oxygen Delivery Method Nasal Cannula Oxygen Flow Rate 3 10/18/23 18:02 10/18/23 18:05 10/18/23 18:05 Temperature 99.1 F 99.1 F 99.3 F Pulse Rate 83 83 85 Respiratory Rate 18 26 H 32 H Blood Pressure 114/59 L 122/53 L Pulse Oximetry 96 Oxygen Delivery Method Nasal Cannula Oxygen Flow Rate 3 10/18/23 18:05 10/18/23 18:10 10/18/23 18:10 Temperature 99.3 F Pulse Rate 78 Respiratory Rate 31 H Blood Pressure 122/53 L 108/59 L Pulse Oximetry 94 Oxygen Delivery Method Nasal Cannula Oxygen Flow Rate 3 10/18/23 18:15 10/18/23 18:15 10/18/23 18:15 Temperature 99.3 F 99.3 F Pulse Rate 79 79 Respiratory Rate 32 H 32 H Blood Pressure 116/59 L 116/59 L Pulse Oximetry 96 Oxygen Delivery Method Nasal Cannula Oxygen Flow Rate 3 10/18/23 18:20 10/18/23 18:20 10/18/23 18:25 Temperature 99.3 F Pulse Rate 80 Respiratory Rate 34 H Blood Pressure 111/56 L 111/55 L Pulse Oximetry 98 Oxygen Delivery Method Nasal Cannula Oxygen Flow Rate 3 10/18/23 18:25 10/18/23 18:30 10/18/23 18:30 Temperature 99.3 F 99.3 F 99.3 F Pulse Rate 77 82 82 Respiratory Rate 32 H 21 32 H Blood Pressure 124/54 L Pulse Oximetry 97 96 Oxygen Delivery Method Nasal Cannula Nasal Cannula Oxygen Flow Rate 3 3 10/18/23 18:30 10/18/23 18:35 10/18/23 18:35 Temperature 99.5 F Pulse Rate 80 Respiratory Rate 31 H Blood Pressure 124/54 L 118/62 Pulse Oximetry 95 Oxygen Delivery Method Nasal Cannula Oxygen Flow Rate 3 10/18/23 18:40 10/18/23 18:40 Temperature 99.5 F Pulse Rate 78 Respiratory Rate 32 H Blood Pressure 116/58 L Pulse Oximetry 96 Oxygen Delivery Method Nasal Cannula Oxygen Flow Rate 3 Oxygen Delivery Method Nasal Cannula Oxygen Flow Rate 3 Narrative Exam Narrative: Patient was seen in the ER with his at bedside. Patient appears pale and cachectic as chronically ill. He has in no apparent distress. He is alert and oriented x3 and able to fully answer questions without any difficulty. HEENT is unremarkable other than pale conjunctiva. Mucous membranes slightly dry Neck: Supple without masses Cor: Irregularly irregular rhythm at a well-controlled rate. Distant S1-S2. Abdomen: Positive bowel sounds but slightly decreased. There is no guarding or rebound. He is bruising over his entire lower abdomen ecchymosis primarily in the left lower abdomen inferior to the incision site. There is a large hematoma about the size of a baseball. It does not feel fluctuant it does not have any drainage. It is not significantly tender. There is no guarding or rebound tenderness. Extremities show trace to 1+ ankle and pedal edema Neurologic exam is nonfocal. Objective Labs 10/18/23 15:01 10/18/23 15:01 Labs: Laboratory Results - last 24 hr 10/18/23 10/18/23 15:01 15:18 WBC 16.0 H RBC 2.50 L Hgb 8.5 L Hct 25.3 L MCV 101.1 H MCH 34.0 MCHC 33.6 RDW 15.1 H Plt Count 173 Neut % (Auto) 84.9 H Lymph % (Auto) 3.2 L Toombs % (Auto) 11.9 Eos % (Auto) 0.0 L Baso % (Auto) 0.0 Neut # (Auto) 62510 H Lymph # (Auto) 500 L [place]ombs # (Auto) 1900 H Eos # (Auto) 0 Baso # (Auto) 0 PT 58.1 H INR 5.0 H* APTT 37 H Sodium 140 Potassium 4.2 Chloride 105 Carbon Dioxide 18 L BUN 47 H Creatinine 2.81 H Estimated GFR 23 L BUN/Creatinine Ratio 16.7 Glucose 186 H Calcium 10.9 H Total Bilirubin 1.8 H AST 35 ALT 30 Alkaline Phosphatase 48 Total Creatine Kinase 67 Troponin I 0.065 H NT-Pro-B Natriuret Pep 6410 H Total Protein 6.6 Albumin 3.8 Globulin 2.8 Albumin/Globulin Ratio 1.4 Lipase 245 Blood Type O Positive Antibody Screen Negative Crossmatch See Detail [facility] Medical History History of COVID-19 (08/2019) Asthma TIA (transient ischemic attack) Difficulty swallowing GERD (gastroesophageal reflux disease) HTN (hypertension) Secondary pulmonary arterial hypertension Cor pulmonale LBBB (left bundle branch block) Anxiety Colon cancer Atrial fibrillation Chronic anticoagulation Stroke 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 CHF (congestive heart failure) Surgical History History of hip replacement, total (07/2014) History of surgery (~03/2010) History of esophagogastroduodenoscopy (EGD) History of cardiac cath S/P ascending aortic aneurysm repair (07/1994) History of abdominal aortic aneurysm repair Status post colectomy (07/2011) Aortic valve replaced (07/1994) Mitral valve replaced (2009) Social History household members: spouse Tobacco & Substance Use Smoking Status: Former smoker alcohol intake: never Assessment & Plan Assessment & Plan narrative: 73-year-old male admitted for supratherapeutic INR with evidence of acute blood loss and hematoma at surgical site with respiratory difficulty secondary to anemia Assessment 1. Anemia with acute blood loss at surgical site Plan: Per surgery Will continue with 2nd unit of blood and recheck H&H Plan to be NPO and surgery in the morning Assessment 2. Respiratory failure requiring 3 L nasal cannula suspect multifactorial including profound anemia due to acute blood loss and possible congestive heart failure acute exacerbation Plan: He will be admitted to the ICU in the [facility] have been consulted by Dr. Tinoco. Appreciate their input and management. Will give 40 mg of IV Lasix after the 2nd dose of packed red blood cells. Will monitor closely. Will recheck labs in the morning and treat anemia Will rule out infection. Will do blood cultures and urine cultures will do a repeat chest x-ray in the morning. Will repeat BNP as well. Will do serial CKs and troponins given his complicated medical history. No evidence PE on CT scan Assessment 3. Supratherapeutic INR Plan: Patient is being given fresh frozen plasma and was given vitamin K. we will continue to monitor for ongoing anemia and recheck INR. However patient does have prostatic mitral and aortic valve so we have to do this cautiously due to concern for clot here. Will discuss with Cardiology tomorrow further management and types of prosthetic valves. Assessment number for atrial fibrillation Plan: Will continue to monitor patient will be on tele. We will continue outpatient medications as blood pressure tolerates but 1st will diurese. Assessment 5. Leukocytosis Plan: Will rule out infectious etiology. Will repeat chest x-ray in the morning. Will do blood cultures and urine cultures. Will monitor temperature. Consider empiric antibiotics if WBC does not come down or patient develops a fever or focal findings or found Assessment 6. Hyperkalemia long history. No current symptoms. Plan: Will continue to follow calciums Assessment 7. Previous history of GI bleed Plan: Will give Protonix IV daily Assessment 8. DVT prophylaxis Plan: Patient currently supratherapeutic on Coumadin Assessment 9. Coughing when he swallows water Plan: Will consult speech therapy. Patient recently had an EGD. Assessment 10. Malnutrition Plan: Will consult dietary Assessment 11.: Coronary artery disease Patient had stress test 07/15/2022 showing small fixed basal to mid anterior wall defect and moderately to severe fixed inferior and inferior apical defect of large size. Stress LV ejection fraction 41%. Technically difficult. He then underwent a cardiac catheterization in August of 2022 mild calcification of coronaries was noted no stenosis of left main LAD no critical stenosis. Circumflex non dominant ongoing AV groove branch has a 50% stenosis in the ostium and did not feel that these were suited for percutaneous intervention right coronary artery was difficult to cannulate and continued medical therapy was recommended. Plan: Will do serial CKs and troponins Will continue to monitor. Code status: Patient is modified code. He does not want to be intubated. He does want chest compressions. This was discussed with his and the patient and he was very clear 80 minutes was spent with patient and discussing with ER physician and surgery and reviewing his clinic chart and documentation from other facilities, meeting with patient and his and documentation and formulation of a plan
--- NOTE | 2023-10-18 20:05 | P.TELICUCN_ITS ---
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: Yes Patient Location: ICU Provider location (State): [place] Other participants/roles: [facility] Medical History History of COVID-19 (08/2019) Asthma TIA (transient ischemic attack) Difficulty swallowing GERD (gastroesophageal reflux disease) HTN (hypertension) Secondary pulmonary arterial hypertension Cor pulmonale LBBB (left bundle branch block) Anxiety Colon cancer Atrial fibrillation Chronic anticoagulation Stroke 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 CHF (congestive heart failure) Surgical History History of hip replacement, total (07/2014) History of surgery (~03/2010) History of esophagogastroduodenoscopy (EGD) History of cardiac cath S/P ascending aortic aneurysm repair (07/1994) History of abdominal aortic aneurysm repair Status post colectomy (07/2011) Aortic valve replaced (07/1994) Mitral valve replaced (2009) Social History household members: spouse Smoking Status: Former smoker alcohol intake: never Current Medications Current Medications Medications: Home Medications albuterol sulfate 90 mcg/actuation aerosol inhaler (Ventolin HFA) 2 puff inhalation Q6H PRN Shortness Of Breath 09/15/23 [History Confirmed 10/18/23] atorvastatin 20 mg tablet 20 mg PO DAILY 09/15/23 [History Confirmed 10/18/23] ipratropium bromide 42 mcg (0.06 %) nasal spray 2 spray intranasal TID 09/15/23 [History Confirmed 10/18/23] loratadine 10 mg tablet (Allergy Relief (loratadine)) 10 mg PO DAILY 09/15/23 [History Confirmed 10/18/23] metoprolol succinate 50 mg tablet,extended release 24 hr 50 mg PO BID 09/15/23 [History Confirmed 10/18/23] montelukast 10 mg tablet 10 mg PO DAILY 09/15/23 [History Confirmed 10/18/23] omeprazole 20 mg capsule,delayed release 20 mg PO BID 09/15/23 [History Confirmed 10/18/23] sacubitril 24 mg-valsartan 26 mg tablet (Entresto) 1 tab PO BID 09/15/23 [History Confirmed 10/18/23] spironolactone 25 mg tablet 12.5 mg PO DAILY 09/15/23 [History Confirmed 10/18/23] torsemide 20 mg tablet 10 mg PO DAILY 09/15/23 [History Confirmed 10/18/23] enoxaparin 80 mg SUBCUT DAILY 10/04/23 [History Confirmed 10/18/23] acetaminophen 325 mg capsule (Tylenol) 650 mg (2 x 325 mg) PO QID PRN pain #60 caps 10/12/23 [Rx Confirmed 10/18/23] warfarin 7.5 mg tablet See Rx Instructions .Route .COMPLEX 10/12/23 [History Confirmed 10/18/23] aspirin 81 mg tablet,delayed release 81 mg PO DAILY 10/18/23 [History Confirmed 10/18/23] cholecalciferol (vitamin D3) 25 mcg (1,000 unit) tablet 25 mcg PO DAILY 10/18/23 [History Confirmed 10/18/23] docusate sodium 100 mg capsule (Colace) 100 mg PO BID PRN Constipation 10/18/23 [History Confirmed 10/18/23] Visit Medications (administered) Generic Name Dose Route Start Last Admin Trade Name Freq PRN Reason Stop Dose Admin Sodium Chloride 1,000 mls @ 150 mls/hr 10/18/23 15:15 10/18/23 18:51 Normal Saline 0.9% IV 150 mls/hr CONT GHASSAN Infusion Exam Vital Signs (past 8 hours): - 10/18/23 14:55 10/18/23 14:57 10/18/23 14:58 Temperature 97.3 F L Pulse Rate 97 H 96 H 91 H Respiratory Rate 22 25 H 26 H Blood Pressure 146/87 H Pulse Oximetry 95 70 L 77 L Oxygen Delivery Method Room Air Oxygen Flow Rate 10/18/23 14:58 10/18/23 15:00 10/18/23 15:01 Temperature Pulse Rate 95 H 91 H Respiratory Rate 27 H 25 H Blood Pressure 146/87 H Pulse Oximetry 80 L 86 L Oxygen Delivery Method Oxygen Flow Rate 10/18/23 15:01 10/18/23 15:11 10/18/23 15:11 Temperature Pulse Rate 98 H Respiratory Rate 27 H Blood Pressure 100/71 109/47 L Pulse Oximetry 89 L Oxygen Delivery Method Oxygen Flow Rate 10/18/23 15:15 10/18/23 15:15 10/18/23 15:20 Temperature Pulse Rate 92 H Respiratory Rate 25 H Blood Pressure 126/58 L 91/54 L Pulse Oximetry 99 Oxygen Delivery Method Oxygen Flow Rate 10/18/23 15:20 10/18/23 15:23 10/18/23 15:23 Temperature Pulse Rate 91 H 97 H Respiratory Rate 28 H 24 Blood Pressure 124/51 L Pulse Oximetry 84 L 97 Oxygen Delivery Method Oxygen Flow Rate 10/18/23 15:26 10/18/23 15:28 10/18/23 15:28 Temperature Pulse Rate 86 98 H Respiratory Rate 27 H Blood Pressure 71/51 L Pulse Oximetry 86 L 79 L Oxygen Delivery Method Oxygen Flow Rate 10/18/23 15:30 10/18/23 15:30 10/18/23 15:35 Temperature Pulse Rate 90 88 Respiratory Rate 26 H 24 Blood Pressure 65/47 L Pulse Oximetry 90 L 94 Oxygen Delivery Method Nasal Cannula Oxygen Flow Rate 3 10/18/23 15:37 10/18/23 15:37 10/18/23 15:40 Temperature Pulse Rate 96 H Respiratory Rate 24 Blood Pressure 97/65 109/53 L Pulse Oximetry 97 Oxygen Delivery Method Oxygen Flow Rate 10/18/23 15:40 10/18/23 15:45 10/18/23 15:45 Temperature 93.9 F L Pulse Rate 89 78 Respiratory Rate 24 24 Blood Pressure 114/56 L Pulse Oximetry 91 95 Oxygen Delivery Method Oxygen Flow Rate 10/18/23 15:47 10/18/23 15:50 10/18/23 15:50 Temperature 97.3 F L 96.1 F L Pulse Rate 80 81 Respiratory Rate 25 H 25 H Blood Pressure 114/56 L 119/52 L Pulse Oximetry 94 Oxygen Delivery Method Oxygen Flow Rate 10/18/23 15:55 10/18/23 15:55 10/18/23 16:00 Temperature 96.6 F L Pulse Rate 81 Respiratory Rate 24 Blood Pressure 101/49 L 110/54 L Pulse Oximetry 96 Oxygen Delivery Method Nasal Cannula Oxygen Flow Rate 3 10/18/23 16:00 10/18/23 16:02 10/18/23 16:05 Temperature 97.3 F L 98.2 F 97.7 F Pulse Rate 79 77 81 Respiratory Rate 25 H 25 H 26 H Blood Pressure 110/54 L Pulse Oximetry 93 92 Oxygen Delivery Method Oxygen Flow Rate 10/18/23 16:05 10/18/23 16:10 10/18/23 16:10 Temperature 97.9 F Pulse Rate 82 Respiratory Rate 22 Blood Pressure 111/55 L 98/53 L Pulse Oximetry 95 Oxygen Delivery Method Oxygen Flow Rate 10/18/23 16:15 10/18/23 16:15 10/18/23 16:20 Temperature 98.1 F 98.4 F Pulse Rate 87 83 Respiratory Rate 22 24 Blood Pressure 112/52 L 115/55 L Pulse Oximetry 96 Oxygen Delivery Method Oxygen Flow Rate 10/18/23 16:20 10/18/23 16:20 10/18/23 16:25 Temperature 98.2 F Pulse Rate 75 Respiratory Rate 23 Blood Pressure 109/54 L 115/55 L Pulse Oximetry 96 Oxygen Delivery Method Oxygen Flow Rate 10/18/23 16:25 10/18/23 16:30 10/18/23 16:30 Temperature 98.4 F 98.4 F Pulse Rate 82 84 Respiratory Rate 24 24 Blood Pressure 105/52 L Pulse Oximetry 94 89 L Oxygen Delivery Method Oxygen Flow Rate 10/18/23 16:35 10/18/23 16:35 10/18/23 16:40 Temperature 98.6 F Pulse Rate 82 Respiratory Rate 22 Blood Pressure 131/56 L 118/59 L Pulse Oximetry 94 Oxygen Delivery Method Oxygen Flow Rate 10/18/23 16:40 10/18/23 16:45 10/18/23 16:45 Temperature 98.6 F 98.6 F Pulse Rate 80 80 Respiratory Rate 26 H 22 Blood Pressure 101/56 L Pulse Oximetry 96 96 Oxygen Delivery Method Nasal Cannula Oxygen Flow Rate 3 10/18/23 16:50 10/18/23 16:50 10/18/23 16:55 Temperature 98.8 F Pulse Rate 80 Respiratory Rate 27 H Blood Pressure 116/58 L 112/56 L Pulse Oximetry 96 Oxygen Delivery Method Oxygen Flow Rate 10/18/23 16:55 10/18/23 17:00 10/18/23 17:00 Temperature 98.8 F 98.8 F Pulse Rate 77 77 Respiratory Rate 23 23 Blood Pressure 113/52 L Pulse Oximetry 97 97 Oxygen Delivery Method Oxygen Flow Rate 10/18/23 17:05 10/18/23 17:05 10/18/23 17:10 Temperature 99.0 F 99 F Pulse Rate 79 87 Respiratory Rate 24 24 Blood Pressure 108/52 L 108/53 L Pulse Oximetry 96 Oxygen Delivery Method Oxygen Flow Rate 10/18/23 17:10 10/18/23 17:10 10/18/23 17:15 Temperature 99.0 F 99.0 F Pulse Rate 80 80 Respiratory Rate 28 H 26 H Blood Pressure 100/53 L Pulse Oximetry 95 95 Oxygen Delivery Method Oxygen Flow Rate 10/18/23 17:15 10/18/23 17:20 10/18/23 17:20 Temperature 99.0 F Pulse Rate 77 Respiratory Rate 29 H Blood Pressure 106/63 108/54 L Pulse Oximetry 95 Oxygen Delivery Method Oxygen Flow Rate 10/18/23 17:25 10/18/23 17:25 10/18/23 17:30 Temperature 99.0 F Pulse Rate 76 Respiratory Rate 32 H Blood Pressure 113/64 113/57 L Pulse Oximetry 95 Oxygen Delivery Method Oxygen Flow Rate 10/18/23 17:30 10/18/23 17:35 10/18/23 17:36 Temperature 99.0 F 99.0 F Pulse Rate 84 78 Respiratory Rate 29 H 31 H Blood Pressure 120/56 L Pulse Oximetry 96 92 Oxygen Delivery Method Nasal Cannula Nasal Cannula Oxygen Flow Rate 3 3 10/18/23 17:36 10/18/23 17:40 10/18/23 17:40 Temperature 99.0 F 99.1 F Pulse Rate 75 78 Respiratory Rate 29 H 28 H Blood Pressure 122/60 Pulse Oximetry 94 95 Oxygen Delivery Method Nasal Cannula Nasal Cannula Oxygen Flow Rate 3 3 10/18/23 17:45 10/18/23 17:45 10/18/23 17:50 Temperature 99.1 F Pulse Rate 79 Respiratory Rate 29 H Blood Pressure 125/57 L 142/62 H Pulse Oximetry 95 Oxygen Delivery Method Nasal Cannula Oxygen Flow Rate 3 10/18/23 17:50 10/18/23 17:55 10/18/23 17:55 Temperature 99.1 F 99.1 F Pulse Rate 79 77 Respiratory Rate 33 H 33 H Blood Pressure 117/58 L Pulse Oximetry 96 97 Oxygen Delivery Method Nasal Cannula Nasal Cannula Oxygen Flow Rate 3 3 10/18/23 18:00 10/18/23 18:00 10/18/23 18:00 Temperature 99.1 F 99.1 F Pulse Rate 83 75 Respiratory Rate 18 29 H Blood Pressure 114/59 L 114/59 L Pulse Oximetry 98 Oxygen Delivery Method Nasal Cannula Oxygen Flow Rate 3 10/18/23 18:02 10/18/23 18:05 10/18/23 18:05 Temperature 99.1 F 99.1 F 99.3 F Pulse Rate 83 83 85 Respiratory Rate 18 26 H 32 H Blood Pressure 114/59 L 122/53 L Pulse Oximetry 96 Oxygen Delivery Method Nasal Cannula Oxygen Flow Rate 3 10/18/23 18:05 10/18/23 18:10 10/18/23 18:10 Temperature 99.3 F Pulse Rate 78 Respiratory Rate 31 H Blood Pressure 122/53 L 108/59 L Pulse Oximetry 94 Oxygen Delivery Method Nasal Cannula Oxygen Flow Rate 3 10/18/23 18:15 10/18/23 18:15 10/18/23 18:15 Temperature 99.3 F 99.3 F Pulse Rate 79 79 Respiratory Rate 32 H 32 H Blood Pressure 116/59 L 116/59 L Pulse Oximetry 96 Oxygen Delivery Method Nasal Cannula Oxygen Flow Rate 3 10/18/23 18:20 10/18/23 18:20 10/18/23 18:25 Temperature 99.3 F Pulse Rate 80 Respiratory Rate 34 H Blood Pressure 111/56 L 111/55 L Pulse Oximetry 98 Oxygen Delivery Method Nasal Cannula Oxygen Flow Rate 3 10/18/23 18:25 10/18/23 18:30 10/18/23 18:30 Temperature 99.3 F 99.3 F 99.3 F Pulse Rate 77 82 82 Respiratory Rate 32 H 21 32 H Blood Pressure 124/54 L Pulse Oximetry 97 96 Oxygen Delivery Method Nasal Cannula Nasal Cannula Oxygen Flow Rate 3 3 10/18/23 18:30 10/18/23 18:35 10/18/23 18:35 Temperature 99.5 F Pulse Rate 80 Respiratory Rate 31 H Blood Pressure 124/54 L 118/62 Pulse Oximetry 95 Oxygen Delivery Method Nasal Cannula Oxygen Flow Rate 3 10/18/23 18:40 10/18/23 18:40 10/18/23 18:45 Temperature 99.5 F Pulse Rate 78 Respiratory Rate 32 H Blood Pressure 116/58 L 110/56 L Pulse Oximetry 96 Oxygen Delivery Method Nasal Cannula Oxygen Flow Rate 3 10/18/23 18:45 10/18/23 18:50 10/18/23 18:51 Temperature 99.5 F 99.5 F Pulse Rate 78 77 Respiratory Rate 30 H 29 H Blood Pressure 103/55 L Pulse Oximetry 96 96 Oxygen Delivery Method Oxygen Flow Rate 10/18/23 18:51 10/18/23 18:52 10/18/23 19:10 Temperature 99.5 F 99.5 F Pulse Rate 77 74 Respiratory Rate 32 H 30 H Blood Pressure 121/72 Pulse Oximetry 97 96 Oxygen Delivery Method Oxygen Flow Rate 10/18/23 19:16 10/18/23 19:20 10/18/23 19:21 Temperature Pulse Rate 80 76 75 Respiratory Rate 34 H 33 H Blood Pressure Pulse Oximetry 100 100 Oxygen Delivery Method Oxygen Flow Rate 10/18/23 19:21 10/18/23 19:25 10/18/23 19:30 Temperature Pulse Rate 75 78 Respiratory Rate 35 H 30 H Blood Pressure 110/63 Pulse Oximetry 100 100 Oxygen Delivery Method Oxygen Flow Rate 10/18/23 19:30 10/18/23 19:35 10/18/23 19:40 Temperature Pulse Rate 79 75 Respiratory Rate 32 H 33 H Blood Pressure 106/69 Pulse Oximetry 100 100 Oxygen Delivery Method Oxygen Flow Rate Oxygen Delivery Method Nasal Cannula Oxygen Flow Rate 3 Objective Labs 10/18/23 15:01 10/18/23 15:01 Labs: Laboratory Results - last 24 hr 10/18/23 10/18/23 15:01 15:18 WBC 16.0 H RBC 2.50 L Hgb 8.5 L Hct 25.3 L MCV 101.1 H MCH 34.0 MCHC 33.6 RDW 15.1 H Plt Count 173 Neut % (Auto) 84.9 H Lymph % (Auto) 3.2 L [place] % (Auto) 11.9 Eos % (Auto) 0.0 L Baso % (Auto) 0.0 Neut # (Auto) 66873 H Lymph # (Auto) 500 L [place] # (Auto) 1900 H Eos # (Auto) 0 Baso # (Auto) 0 PT 58.1 H INR 5.0 H* APTT 37 H Sodium 140 Potassium 4.2 Chloride 105 Carbon Dioxide 18 L BUN 47 H Creatinine 2.81 H Estimated GFR 23 L BUN/Creatinine Ratio 16.7 Glucose 186 H Calcium 10.9 H Total Bilirubin 1.8 H AST 35 ALT 30 Alkaline Phosphatase 48 Total Creatine Kinase 67 Troponin I 0.065 H NT-Pro-B Natriuret Pep 6410 H Total Protein 6.6 Albumin 3.8 Globulin 2.8 Albumin/Globulin Ratio 1.4 Lipase 245 Blood Type O Positive Antibody Screen Negative Crossmatch See Detail Assessment & Plan Assessment & Plan narrative: patient seen on camera chart/labs/imaging reviewed 73 year old male with PMHx of CAD, Afib, metallic heart valve, recent hernia repair admitted to ICU with: acute blood loss anemia hematoma at surigcal site acute renal failure supratheraputic INR currently afebrile, HD stable no signs of active bleeding plan -avoid sedatives -keep sat above 92% -2 units of prbc 2 units of ffp going in now -will check serial cbc/coags -keep map above 65 -plan for OR tomorrow for hernia repair/hematoma evacuation -will need hep drip post op -hold diuretics for now, pt likely volume depleted with acute renal failure -check serial ekg/trop -check echo -monitor ins/outs -replace lytes prn -gi/dvt ppx, no AC -please call eICU if condition changes -would readdress goals of care and severity of illness daily -discussed at length with surgery, Dr. Tinoco
[2023-10-18] MEDS: PANTOPRAZOLE 40 MG VIAL IV (20:27)
[2023-10-18] MEDS: LORATADINE 10 MG TABLET PO (20:27)
[2023-10-18] MEDS: BENZOCAINE/MENTHOL 1 LOZ PKT 1 EACH PO (20:27)
[2023-10-18 21:00] LABS: MRSA (Nasal) PCR Not Detected (Not Detect)
[2023-10-18 22:15] LABS: Hematocrit 23.5 % (41-53); Hemoglobin 8.1 g/dL (13.5-17.5)
[2023-10-18 22:21] LABS: INR 2.4 (0.9-1.3); Prothrombin Time 27.8 SECONDS (9.4-12.5)
[2023-10-18 22:27] LABS: Alanine Aminotransferase 20 IU/L (<50); Albumin Globulin Ratio 1.2 (1.0-2.8); Alkaline Phosphatase 40 U/L (38-126); Aspartate Aminotransferase 26 IU/L (17-59); BUN Creatinine Ratio 20.8 (6-22); Bilirubin Total 2.1 mg/dL (0.2-1.3); Blood Urea Nitrogen 52 mg/dL (9-20); Calcium 10.4 mg/dL (8.4-10.2); Carbon Dioxide 27 mmol/L (22-32); Chloride 108 mmol/L (98-107); Estimated Glomerular Filt Rate 26 mL/min (>60); Globulin 2.6 g/dL (1.7-4.1); Glucose 118 mg/dL (80-110); HEMOLYSIS < 15 (0-50); Potassium 4.3 mmol/L (3.4-5.1); Sodium 140 mmol/L (137-145); Total Protein 5.6 g/dL (6.3-8.2)
[2023-10-18 22:39] LABS: Troponin I 0.084 ng/mL (0.01-0.034)
[2023-10-18 23:36] LABS: Magnesium 2.4 mg/dL (1.6-2.3)
[2023-10-19] VITALS (196 sets, daily range): BP systolic 70–127; BP diastolic 40–99; PULSE 67–113; RESP 15–85; TEMP 36.1–37.4; O2SAT 74–100; BMI 24.7
[2023-10-19] MEDS: SODIUM CHLORIDE 0.9% 1,000 ML 150 ML IV ×2 (02:46→09:11)
[2023-10-19 03:31] LABS: Add Manual Diff / Slide Review NO; Basophils Absolute Auto 0 /uL (0-100); Basophils Percent Auto 0.2 % (0-2); Eosinophils Absolute Auto 0 /uL (0-450); Hematocrit 23.3 % (41-53); Lymphocytes Absolute Auto 500 /uL (1100-4500); Lymphocytes Percent Auto 3.1 % (25-40); Mean Corpuscular HGB Conc 34.5 % (30-36); Mean Corpuscular Hemoglobin 32.8 PG (26-34); Mean Corpuscular Volume 95.2 fL (80-100); Monocytes Absolute Auto 2100 /uL (0-900); Monocytes Percent Auto 13.2 % (3-14); Neutrophils Absolute Auto 13400 /uL (1500-7000); Neutrophils Percent Auto 83.5 % (50-75); Platelet Count 150 X10^3/uL (150-400); Red Blood Cell Count 2.45 X10^6/uL (4.5-5.9); Red Cell Distribution Width 19.6 % (11.6-14.8); White Blood Cell Count 16.1 X10^3/uL (4.5-11.0)
[2023-10-19 03:32] LABS: INR 1.7 (0.9-1.3); Prothrombin Time 19.2 SECONDS (9.4-12.5)
[2023-10-19 03:37] LABS: Alanine Aminotransferase 19 IU/L (<50); Albumin 3.1 g/dL (3.5-5.0); Albumin Globulin Ratio 1.2 (1.0-2.8); Alkaline Phosphatase 44 U/L (38-126); Aspartate Aminotransferase 27 IU/L (17-59); BUN Creatinine Ratio 21.3 (6-22); Blood Urea Nitrogen 51 mg/dL (9-20); Calcium 9.9 mg/dL (8.4-10.2); Carbon Dioxide 27 mmol/L (22-32); Chloride 109 mmol/L (98-107); Estimated Glomerular Filt Rate 28 mL/min (>60); Globulin 2.6 g/dL (1.7-4.1); Glucose 106 mg/dL (80-110); HEMOLYSIS < 15 (0-50); Potassium 4.3 mmol/L (3.4-5.1); Sodium 141 mmol/L (137-145); Total Protein 5.7 g/dL (6.3-8.2)
--- NOTE | 2023-10-19 06:23 | PC.NURSE ---
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 Pt arrived from ER via stretcher, A&Ox4, anxious at times regarding care plan and rest, VSS, afebrile, PPPx4, mild ankle edema, Afib with BBB and frequent PVCs, lungs clear and decreased, frequent cough for occassional thick creamy sputum, O2 sats >92% on 3L NC, abd round with BS, baseball sized protrusion on LUQ with healing incision, large amt of bruising noted across abd and around to L flank, denies pain, incont of mod amts loose stool, attends on, r/c draining clear jose martin urine, periph IV site patent, labs as ordered, MD notifed of abnormal values, call foreman within reach, bed alarm on
[2023-10-19] MEDS: ALBUTEROL 2.5 MG/3 ML NEB (ADULT) INH (06:43)
[2023-10-19] MEDS: PANTOPRAZOLE 40 MG VIAL IV (08:14)
[2023-10-19] MEDS: BENZOCAINE/MENTHOL 1 LOZ PKT 1 EACH PO (09:11)
[2023-10-19] MEDS: IPRATROPIUM 0.06% NASAL 15 ML 2 SPRAY NASAL (09:20)
--- NOTE | 2023-10-19 09:33 | PM.PN.1 ---
Subjective Subjective Date Patient Seen: 10/19/23 Time Patient Seen: 09:00 Interval history: Chief complaint: belly pain Pt is NPO today pending surgery Dr. Tinoco planning to take to OR for evacuation of hematoma and revision of hernia. He is hungry but denies acute pain. Breathing ok on 0.5L via NC. Exam Vital Signs (past 8 hours): - 10/19/23 02:00 10/19/23 02:00 10/19/23 02:30 Temperature 99.0 F 98.8 F Pulse Rate 69 71 Respiratory Rate Blood Pressure 103/55 L Pulse Oximetry 74 L 99 Oxygen Delivery Method Oxygen Flow Rate 10/19/23 02:30 10/19/23 03:00 10/19/23 03:01 Temperature 99.0 F 99.0 F Pulse Rate 79 78 Respiratory Rate 30 H 29 H Blood Pressure 93/53 L Pulse Oximetry 100 100 Oxygen Delivery Method Oxygen Flow Rate 10/19/23 03:01 10/19/23 03:05 10/19/23 03:10 Temperature 99.0 F 98.8 F Pulse Rate 77 75 Respiratory Rate 31 H 30 H Blood Pressure 72/40 L Pulse Oximetry 100 100 Oxygen Delivery Method Oxygen Flow Rate 3 10/19/23 03:15 10/19/23 03:20 10/19/23 03:20 Temperature 98.8 F 98.8 F Pulse Rate 79 69 Respiratory Rate 31 H 29 H Blood Pressure 108/52 L Pulse Oximetry 100 100 Oxygen Delivery Method Oxygen Flow Rate 10/19/23 03:25 10/19/23 03:30 10/19/23 03:35 Temperature 98.8 F 98.8 F 98.8 F Pulse Rate 74 73 75 Respiratory Rate 27 H 28 H 25 H Blood Pressure Pulse Oximetry 100 99 100 Oxygen Delivery Method Oxygen Flow Rate 10/19/23 03:40 10/19/23 03:45 10/19/23 03:50 Temperature 98.8 F 99.0 F 98.8 F Pulse Rate 70 72 76 Respiratory Rate 26 H 27 H 32 H Blood Pressure Pulse Oximetry 100 100 99 Oxygen Delivery Method Oxygen Flow Rate 10/19/23 03:55 10/19/23 04:00 10/19/23 04:01 Temperature 98.8 F 98.8 F Pulse Rate 74 75 Respiratory Rate 25 H 24 Blood Pressure 98/51 L Pulse Oximetry 99 100 Oxygen Delivery Method Oxygen Flow Rate 10/19/23 04:01 10/19/23 04:05 10/19/23 04:10 Temperature 99.0 F 99.0 F 99.0 F Pulse Rate 75 72 71 Respiratory Rate 27 H 32 H 25 H Blood Pressure Pulse Oximetry 99 100 100 Oxygen Delivery Method Oxygen Flow Rate 3 10/19/23 04:15 10/19/23 04:20 10/19/23 04:25 Temperature 99.0 F 99.0 F 99.0 F Pulse Rate 75 78 71 Respiratory Rate 31 H 32 H 31 H Blood Pressure Pulse Oximetry 100 97 98 Oxygen Delivery Method Oxygen Flow Rate 10/19/23 04:30 10/19/23 04:30 10/19/23 04:35 Temperature 99.0 F 99.0 F Pulse Rate 74 74 Respiratory Rate 30 H 28 H Blood Pressure 104/57 L Pulse Oximetry 100 81 L Oxygen Delivery Method Oxygen Flow Rate 10/19/23 04:40 10/19/23 04:45 10/19/23 04:50 Temperature 99.0 F 98.8 F 99.0 F Pulse Rate 73 76 75 Respiratory Rate 33 H 32 H 33 H Blood Pressure Pulse Oximetry 94 94 Oxygen Delivery Method Oxygen Flow Rate 10/19/23 04:55 10/19/23 05:00 10/19/23 05:00 Temperature 98.8 F 99.0 F Pulse Rate 74 77 Respiratory Rate 30 H 25 H Blood Pressure 94/50 L Pulse Oximetry 95 97 Oxygen Delivery Method Oxygen Flow Rate 10/19/23 05:05 10/19/23 05:10 10/19/23 05:15 Temperature 99.0 F 98.8 F 98.8 F Pulse Rate 75 70 72 Respiratory Rate 34 H 33 H 33 H Blood Pressure Pulse Oximetry 97 98 98 Oxygen Delivery Method Oxygen Flow Rate 10/19/23 05:20 10/19/23 05:25 10/19/23 05:30 Temperature 98.8 F 98.8 F 98.8 F Pulse Rate 70 74 67 Respiratory Rate 33 H 32 H 33 H Blood Pressure Pulse Oximetry 91 88 L 84 L Oxygen Delivery Method Oxygen Flow Rate 3 10/19/23 05:30 10/19/23 05:35 10/19/23 05:40 Temperature 98.8 F 98.8 F Pulse Rate 69 73 Respiratory Rate 31 H 32 H Blood Pressure 121/61 Pulse Oximetry 97 96 Oxygen Delivery Method Oxygen Flow Rate 10/19/23 05:45 10/19/23 05:50 10/19/23 05:55 Temperature 98.8 F 98.8 F 98.8 F Pulse Rate 73 73 71 Respiratory Rate 32 H 32 H 30 H Blood Pressure Pulse Oximetry 97 98 98 Oxygen Delivery Method Oxygen Flow Rate 10/19/23 06:00 10/19/23 06:05 10/19/23 06:10 Temperature 98.8 F 98.8 F 98.8 F Pulse Rate 70 76 76 Respiratory Rate 31 H 32 H 32 H Blood Pressure Pulse Oximetry 99 99 99 Oxygen Delivery Method Oxygen Flow Rate 3 10/19/23 06:15 10/19/23 06:20 10/19/23 06:25 Temperature 98.8 F 98.8 F 98.8 F Pulse Rate 77 72 88 Respiratory Rate 31 H 30 H 35 H Blood Pressure Pulse Oximetry 93 91 96 Oxygen Delivery Method Oxygen Flow Rate 10/19/23 06:30 10/19/23 06:31 10/19/23 06:31 Temperature 98.8 F 98.8 F Pulse Rate 78 90 Respiratory Rate 33 H 31 H Blood Pressure 99/72 Pulse Oximetry 94 91 Oxygen Delivery Method Oxygen Flow Rate 10/19/23 06:35 10/19/23 06:40 10/19/23 06:44 Temperature 98.8 F 98.8 F Pulse Rate 80 75 73 Respiratory Rate 33 H 35 H 18 Blood Pressure Pulse Oximetry 91 90 L 98 Oxygen Delivery Method Nasal Cannula Oxygen Flow Rate 2 10/19/23 06:45 10/19/23 06:50 10/19/23 06:55 Temperature 98.8 F 98.8 F 98.8 F Pulse Rate 79 79 76 Respiratory Rate 32 H 31 H 26 H Blood Pressure Pulse Oximetry 96 95 95 Oxygen Delivery Method Oxygen Flow Rate 10/19/23 07:00 10/19/23 07:00 10/19/23 07:00 Temperature 98.8 F Pulse Rate 79 Respiratory Rate 25 H Blood Pressure 112/58 L Pulse Oximetry 95 Oxygen Delivery Method Nasal Cannula Oxygen Flow Rate 10/19/23 07:05 10/19/23 07:10 10/19/23 07:15 Temperature 98.8 F 98.8 F 98.8 F Pulse Rate 79 80 78 Respiratory Rate 25 H 28 H 22 Blood Pressure Pulse Oximetry 94 93 92 Oxygen Delivery Method Oxygen Flow Rate 10/19/23 07:20 10/19/23 07:25 10/19/23 07:30 Temperature 99.0 F 99.0 F Pulse Rate 75 74 Respiratory Rate 24 24 Blood Pressure 109/53 L Pulse Oximetry 92 91 Oxygen Delivery Method Oxygen Flow Rate 10/19/23 07:30 10/19/23 07:35 10/19/23 07:40 Temperature 99.0 F 99.0 F 99.0 F Pulse Rate 90 79 78 Respiratory Rate 23 24 24 Blood Pressure Pulse Oximetry 90 L 90 L 89 L Oxygen Delivery Method Oxygen Flow Rate 10/19/23 07:45 10/19/23 07:50 10/19/23 07:55 Temperature 99.0 F 99.0 F 99.0 F Pulse Rate 80 80 78 Respiratory Rate 26 H 31 H 28 H Blood Pressure Pulse Oximetry 89 L 89 L 92 Oxygen Delivery Method Oxygen Flow Rate 10/19/23 08:00 10/19/23 08:00 10/19/23 08:05 Temperature 99.0 F 99.0 F Pulse Rate 79 84 Respiratory Rate 23 29 H Blood Pressure 117/56 L Pulse Oximetry 89 L 89 L Oxygen Delivery Method Oxygen Flow Rate 10/19/23 08:10 10/19/23 08:15 10/19/23 08:20 Temperature 99.0 F 99.0 F 99.0 F Pulse Rate 78 74 74 Respiratory Rate 29 H 30 H 28 H Blood Pressure Pulse Oximetry Oxygen Delivery Method Oxygen Flow Rate 10/19/23 08:25 10/19/23 08:30 10/19/23 08:30 Temperature 99.0 F 99.0 F Pulse Rate 80 77 Respiratory Rate 23 24 Blood Pressure 100/60 Pulse Oximetry Oxygen Delivery Method Oxygen Flow Rate 10/19/23 08:35 10/19/23 08:40 10/19/23 08:45 Temperature 99.0 F 99.0 F 99.0 F Pulse Rate 77 79 75 Respiratory Rate 29 H 28 H 23 Blood Pressure Pulse Oximetry Oxygen Delivery Method Oxygen Flow Rate 10/19/23 08:50 10/19/23 08:55 10/19/23 09:00 Temperature 99.0 F 99.0 F 99.0 F Pulse Rate 74 78 81 Respiratory Rate 28 H 34 H 31 H Blood Pressure Pulse Oximetry Oxygen Delivery Method Oxygen Flow Rate 10/19/23 09:00 10/19/23 09:05 Temperature 99.0 F Pulse Rate 75 Respiratory Rate 30 H Blood Pressure 109/58 L Pulse Oximetry Oxygen Delivery Method Oxygen Flow Rate Oxygen Delivery Method Nasal Cannula Oxygen Flow Rate 2 Narrative Exam Narrative: resting in bed with R arm Const Other: well developed rather thin HENMT Other: NC/AT Eyes Other: EOMI Resp Other: grossly clear to auscultation bilaterally Cardio Other: regular rate, 2x/mechanical heart valve sounds GI Other: prominent bruising and swelling in LLQ over surgical hernia incision Other: draining yellow straw colored urine Neuro Other: alert active oriented Extrem Other: R arm most comfortable up over head Objective Labs 10/19/23 16:00 10/19/23 16:00 Labs: Laboratory Results - last 24 hr 10/18/23 10/18/23 10/18/23 15:00 15:01 15:18 WBC 16.0 H RBC 2.50 L Hgb 8.5 L Hct 25.3 L MCV 101.1 H MCH 34.0 MCHC 33.6 RDW 15.1 H Plt Count 173 Neut % (Auto) 84.9 H Lymph % (Auto) 3.2 L [place] % (Auto) 11.9 Eos % (Auto) 0.0 L Baso % (Auto) 0.0 Neut # (Auto) 58248 H Lymph # (Auto) 500 L [place] # (Auto) 1900 H Eos # (Auto) 0 Baso # (Auto) 0 PT 58.1 H INR 5.0 H* APTT 37 H Sodium 140 Potassium 4.2 Chloride 105 Carbon Dioxide 18 L BUN 47 H Creatinine 2.81 H Estimated GFR 23 L BUN/Creatinine Ratio 16.7 Glucose 186 H Calcium 10.9 H Magnesium 2.4 H Total Bilirubin 1.8 H AST 35 ALT 30 Alkaline Phosphatase 48 Total Creatine Kinase 67 Troponin I 0.065 H NT-Pro-B Natriuret Pep 6410 H Total Protein 6.6 Albumin 3.8 Globulin 2.8 Albumin/Globulin Ratio 1.4 Lipase 245 Nasal Screen MRSA (PCR) Blood Type O Positive Antibody Screen Negative Crossmatch See Detail 10/18/23 10/18/23 10/19/23 19:30 22:03 00:20 WBC RBC Hgb 8.1 L Hct 23.5 L MCV MCH MCHC RDW Plt Count Neut % (Auto) Lymph % (Auto) [place] % (Auto) Eos % (Auto) Baso % (Auto) Neut # (Auto) Lymph # (Auto) [place] # (Auto) Eos # (Auto) Baso # (Auto) PT 27.8 H D INR 2.4 H APTT Sodium 140 Potassium 4.3 Chloride 108 H Carbon Dioxide 27 BUN 52 H Creatinine 2.50 H Estimated GFR 26 L BUN/Creatinine Ratio 20.8 Glucose 118 H Calcium 10.4 H Magnesium Total Bilirubin 2.1 H AST 26 ALT 20 Alkaline Phosphatase 40 Total Creatine Kinase Troponin I 0.084 H 0.080 H NT-Pro-B Natriuret Pep Total Protein 5.6 L Albumin 3.0 L Globulin 2.6 Albumin/Globulin Ratio 1.2 Lipase Nasal Screen MRSA (PCR) Not detected Blood Type Antibody Screen Crossmatch 10/19/23 03:18 WBC 16.1 H RBC 2.45 L Hgb 8.0 L Hct 23.3 L MCV 95.2 D MCH 32.8 MCHC 34.5 RDW 19.6 H Plt Count 150 Neut % (Auto) 83.5 H Lymph % (Auto) 3.1 L [place] % (Auto) 13.2 Eos % (Auto) 0.0 L Baso % (Auto) 0.2 Neut # (Auto) 11110 H Lymph # (Auto) 500 L [place] # (Auto) 2100 H Eos # (Auto) 0 Baso # (Auto) 0 PT 19.2 H D INR 1.7 H APTT Sodium 141 Potassium 4.3 Chloride 109 H Carbon Dioxide 27 BUN 51 H Creatinine 2.40 H Estimated GFR 28 L BUN/Creatinine Ratio 21.3 Glucose 106 Calcium 9.9 Magnesium Total Bilirubin 2.0 H AST 27 ALT 19 Alkaline Phosphatase 44 Total Creatine Kinase Troponin I NT-Pro-B Natriuret Pep Total Protein 5.7 L Albumin 3.1 L Globulin 2.6 Albumin/Globulin Ratio 1.2 Lipase Nasal Screen MRSA (PCR) Blood Type Antibody Screen Crossmatch [facility] Medical History History of COVID-19 (08/2019) Asthma TIA (transient ischemic attack) Difficulty swallowing GERD (gastroesophageal reflux disease) HTN (hypertension) Secondary pulmonary arterial hypertension Cor pulmonale LBBB (left bundle branch block) Anxiety Colon cancer Atrial fibrillation Chronic anticoagulation Stroke 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 CHF (congestive heart failure) Surgical History History of hip replacement, total (07/2014) History of surgery (~03/2010) History of esophagogastroduodenoscopy (EGD) History of cardiac cath S/P ascending aortic aneurysm repair (07/1994) History of abdominal aortic aneurysm repair Status post colectomy (07/2011) Aortic valve replaced (07/1994) Mitral valve replaced (2009) Social History household members: spouse Smoking Status: Former smoker alcohol intake: never Assessment & Plan Assessment & Plan narrative: 73-year-old male admitted for supratherapeutic INR with evidence of acute blood loss and hematoma at surgical site with respiratory difficulty secondary to anemia #Anemia with acute blood loss at surgical site Planning OR today c/o Dr. Tinoco #Respiratory failure requiring 3 L nasal cannula suspect multifactorial including profound anemia due to acute blood loss and possible congestive heart failure acute exacerbation Hgb stable this morning after 2Us PRBCs. #Supratherapeutic INR Reversing with fresh frozen plasma and was given vitamin K, INR down, continue to trend #Atrial fibrillation Will continue to monitor patient will be on tele. We will continue outpatient medications as blood pressure tolerates but 1st will diurese. #Leukocytosis Will rule out infectious etiology. Will repeat chest x-ray in the morning. Will do blood cultures and urine cultures. Will monitor temperature. Consider empiric antibiotics if WBC does not come down or patient develops a fever or focal findings or found #Hyperkalemia trend and monitor #Previous history of GI bleed Noted, consider iv PPI #DVT prophylaxis Plan: Patient currently supratherapeutic on Coumadin - SCDs only #Coughing since extubation - likely contributory to intraabdominal pressure and hernia blowout. #Malnutrition Will consult dietary #Coronary artery disease Troponins trended down, monitor Dispo: pending surgery Code status: Patient is modified code. He does not want to be intubated. He does want chest compressions. This was discussed with his and the patient and he was very clear Diet: NPO for surgery PCP: Ney MDM: Quality VTE Deep Vein Thrombosis/Pulmonary Embolism Present on Admission: No
--- NOTE | 2023-10-19 09:41 | P.TELICUPN_ITS ---
Subjective Subjective IF CAMERA ACTIVATED, patient seen via real-time interactive audiovisual communication: Camera activated Consent obtained for tele-crosstie inspector care: Yes Patient Location: ICU Provider location (State): [place] Other participants/roles: bedside nurse Interval history: no acute changes since admission no new signs of active bleeding no chest pain/ no shortness of breath Current Medications Current Medications Medications: Home Medications albuterol sulfate 90 mcg/actuation aerosol inhaler (Ventolin HFA) 2 puff inhalation Q6H PRN Shortness Of Breath 09/15/23 [History Confirmed 10/18/23] atorvastatin 20 mg tablet 20 mg PO DAILY 09/15/23 [History Confirmed 10/18/23] ipratropium bromide 42 mcg (0.06 %) nasal spray 2 spray intranasal TID 09/15/23 [History Confirmed 10/18/23] loratadine 10 mg tablet (Allergy Relief (loratadine)) 10 mg PO DAILY 09/15/23 [History Confirmed 10/18/23] metoprolol succinate 50 mg tablet,extended release 24 hr 50 mg PO BID 09/15/23 [History Confirmed 10/18/23] montelukast 10 mg tablet 10 mg PO DAILY 09/15/23 [History Confirmed 10/18/23] omeprazole 20 mg capsule,delayed release 20 mg PO BID 09/15/23 [History Confirmed 10/18/23] sacubitril 24 mg-valsartan 26 mg tablet (Entresto) 1 tab PO BID 09/15/23 [History Confirmed 10/18/23] spironolactone 25 mg tablet 12.5 mg PO DAILY 09/15/23 [History Confirmed 10/18/23] torsemide 20 mg tablet 10 mg PO DAILY 09/15/23 [History Confirmed 10/18/23] enoxaparin 80 mg SUBCUT DAILY 10/04/23 [History Confirmed 10/18/23] acetaminophen 325 mg capsule (Tylenol) 650 mg (2 x 325 mg) PO QID PRN pain #60 caps 10/12/23 [Rx Confirmed 10/18/23] warfarin 7.5 mg tablet See Rx Instructions .Route .COMPLEX 10/12/23 [History Confirmed 10/18/23] aspirin 81 mg tablet,delayed release 81 mg PO DAILY 10/18/23 [History Confirmed 10/18/23] cholecalciferol (vitamin D3) 25 mcg (1,000 unit) tablet 25 mcg PO DAILY 10/18/23 [History Confirmed 10/18/23] docusate sodium 100 mg capsule (Colace) 100 mg PO BID PRN Constipation 10/18/23 [History Confirmed 10/18/23] Visit Medications (administered) Generic Name Dose Route Start Last Admin Trade Name Freq PRN Reason Stop Dose Admin Albuterol 2.5 mg 10/18/23 18:16 10/19/23 06:43 Albuterol 2.5 Mg/3 Ml Neb (Adult) INH 2.5 mg Q6H PRN Administration Shortness Of Breath Benzocaine 1 each 10/18/23 20:03 10/19/23 09:11 Benzocaine/Menthol 1 Louis Pkt PO 1 each Q1HR PRN Administration Sore Throat Sodium Chloride 1,000 mls @ 150 mls/hr 10/18/23 15:15 10/19/23 09:11 Normal Saline 0.9% IV 150 mls/hr CONT GHASSAN Administration Ipratropium [place] 2 spray 10/18/23 21:00 10/18/23 20:28 Ipratropium 0.06% Nasal 15 Ml NASAL Not Given TID GHASSAN Loratadine 10 mg 10/18/23 21:00 10/18/23 20:27 Loratadine 10 Mg Tablet PO 10 mg BEDTIME GHASSAN Administration Pantoprazole Sodium 40 mg 10/18/23 19:20 10/19/23 08:14 Pantoprazole 40 Mg Vial IV 40 mg DAILY GHASSAN Administration Objective Labs 10/19/23 03:18 10/19/23 03:18 Labs: Laboratory Results - last 24 hr 10/18/23 10/18/23 10/18/23 15:00 15:01 15:18 WBC 16.0 H RBC 2.50 L Hgb 8.5 L Hct 25.3 L MCV 101.1 H MCH 34.0 MCHC 33.6 RDW 15.1 H Plt Count 173 Neut % (Auto) 84.9 H Lymph % (Auto) 3.2 L Villalba % (Auto) 11.9 Eos % (Auto) 0.0 L Baso % (Auto) 0.0 Neut # (Auto) 05307 H Lymph # (Auto) 500 L Villalba # (Auto) 1900 H Eos # (Auto) 0 Baso # (Auto) 0 PT 58.1 H INR 5.0 H* APTT 37 H Sodium 140 Potassium 4.2 Chloride 105 Carbon Dioxide 18 L BUN 47 H Creatinine 2.81 H Estimated GFR 23 L BUN/Creatinine Ratio 16.7 Glucose 186 H Calcium 10.9 H Magnesium 2.4 H Total Bilirubin 1.8 H AST 35 ALT 30 Alkaline Phosphatase 48 Total Creatine Kinase 67 Troponin I 0.065 H NT-Pro-B Natriuret Pep 6410 H Total Protein 6.6 Albumin 3.8 Globulin 2.8 Albumin/Globulin Ratio 1.4 Lipase 245 Nasal Screen MRSA (PCR) Blood Type O Positive Antibody Screen Negative Crossmatch See Detail 10/18/23 10/18/23 10/19/23 19:30 22:03 00:20 WBC RBC Hgb 8.1 L Hct 23.5 L MCV MCH MCHC RDW Plt Count Neut % (Auto) Lymph % (Auto) Villalba % (Auto) Eos % (Auto) Baso % (Auto) Neut # (Auto) Lymph # (Auto) Villal[place] # (Auto) Eos # (Auto) Baso # (Auto) PT 27.8 H D INR 2.4 H APTT Sodium 140 Potassium 4.3 Chloride 108 H Carbon Dioxide 27 BUN 52 H Creatinine 2.50 H Estimated GFR 26 L BUN/Creatinine Ratio 20.8 Glucose 118 H Calcium 10.4 H Magnesium Total Bilirubin 2.1 H AST 26 ALT 20 Alkaline Phosphatase 40 Total Creatine Kinase Troponin I 0.084 H 0.080 H NT-Pro-B Natriuret Pep Total Protein 5.6 L Albumin 3.0 L Globulin 2.6 Albumin/Globulin Ratio 1.2 Lipase Nasal Screen MRSA (PCR) Not detected Blood Type Antibody Screen Crossmatch 10/19/23 03:18 WBC 16.1 H RBC 2.45 L Hgb 8.0 L Hct 23.3 L MCV 95.2 D MCH 32.8 MCHC 34.5 RDW 19.6 H Plt Count 150 Neut % (Auto) 83.5 H Lymph % (Auto) 3.1 L Vill[place] % (Auto) 13.2 Eos % (Auto) 0.0 L Baso % (Auto) 0.2 Neut # (Auto) 85216 H Lymph # (Auto) 500 L [place] # (Auto) 2100 H Eos # (Auto) 0 Baso # (Auto) 0 PT 19.2 H D INR 1.7 H APTT Sodium 141 Potassium 4.3 Chloride 109 H Carbon Dioxide 27 BUN 51 H Creatinine 2.40 H Estimated GFR 28 L BUN/Creatinine Ratio 21.3 Glucose 106 Calcium 9.9 Magnesium Total Bilirubin 2.0 H AST 27 ALT 19 Alkaline Phosphatase 44 Total Creatine Kinase Troponin I NT-Pro-B Natriuret Pep Total Protein 5.7 L Albumin 3.1 L Globulin 2.6 Albumin/Globulin Ratio 1.2 Lipase Nasal Screen MRSA (PCR) Blood Type Antibody Screen Crossmatch Exam Vital Signs (past 8 hours): - 10/19/23 02:00 10/19/23 02:00 10/19/23 02:30 Temperature 99.0 F 98.8 F Pulse Rate 69 71 Respiratory Rate Blood Pressure 103/55 L Pulse Oximetry 74 L 99 Oxygen Delivery Method Oxygen Flow Rate 10/19/23 02:30 10/19/23 03:00 10/19/23 03:01 Temperature 99.0 F 99.0 F Pulse Rate 79 78 Respiratory Rate 30 H 29 H Blood Pressure 93/53 L Pulse Oximetry 100 100 Oxygen Delivery Method Oxygen Flow Rate 10/19/23 03:01 10/19/23 03:05 10/19/23 03:10 Temperature 99.0 F 98.8 F Pulse Rate 77 75 Respiratory Rate 31 H 30 H Blood Pressure 72/40 L Pulse Oximetry 100 100 Oxygen Delivery Method Oxygen Flow Rate 3 10/19/23 03:15 10/19/23 03:20 10/19/23 03:20 Temperature 98.8 F 98.8 F Pulse Rate 79 69 Respiratory Rate 31 H 29 H Blood Pressure 108/52 L Pulse Oximetry 100 100 Oxygen Delivery Method Oxygen Flow Rate 10/19/23 03:25 10/19/23 03:30 10/19/23 03:35 Temperature 98.8 F 98.8 F 98.8 F Pulse Rate 74 73 75 Respiratory Rate 27 H 28 H 25 H Blood Pressure Pulse Oximetry 100 99 100 Oxygen Delivery Method Oxygen Flow Rate 10/19/23 03:40 10/19/23 03:45 10/19/23 03:50 Temperature 98.8 F 99.0 F 98.8 F Pulse Rate 70 72 76 Respiratory Rate 26 H 27 H 32 H Blood Pressure Pulse Oximetry 100 100 99 Oxygen Delivery Method Oxygen Flow Rate 10/19/23 03:55 10/19/23 04:00 10/19/23 04:01 Temperature 98.8 F 98.8 F Pulse Rate 74 75 Respiratory Rate 25 H 24 Blood Pressure 98/51 L Pulse Oximetry 99 100 Oxygen Delivery Method Oxygen Flow Rate 10/19/23 04:01 10/19/23 04:05 10/19/23 04:10 Temperature 99.0 F 99.0 F 99.0 F Pulse Rate 75 72 71 Respiratory Rate 27 H 32 H 25 H Blood Pressure Pulse Oximetry 99 100 100 Oxygen Delivery Method Oxygen Flow Rate 3 10/19/23 04:15 10/19/23 04:20 10/19/23 04:25 Temperature 99.0 F 99.0 F 99.0 F Pulse Rate 75 78 71 Respiratory Rate 31 H 32 H 31 H Blood Pressure Pulse Oximetry 100 97 98 Oxygen Delivery Method Oxygen Flow Rate 10/19/23 04:30 10/19/23 04:30 10/19/23 04:35 Temperature 99.0 F 99.0 F Pulse Rate 74 74 Respiratory Rate 30 H 28 H Blood Pressure 104/57 L Pulse Oximetry 100 81 L Oxygen Delivery Method Oxygen Flow Rate 10/19/23 04:40 10/19/23 04:45 10/19/23 04:50 Temperature 99.0 F 98.8 F 99.0 F Pulse Rate 73 76 75 Respiratory Rate 33 H 32 H 33 H Blood Pressure Pulse Oximetry 94 94 Oxygen Delivery Method Oxygen Flow Rate 10/19/23 04:55 10/19/23 05:00 10/19/23 05:00 Temperature 98.8 F 99.0 F Pulse Rate 74 77 Respiratory Rate 30 H 25 H Blood Pressure 94/50 L Pulse Oximetry 95 97 Oxygen Delivery Method Oxygen Flow Rate 10/19/23 05:05 10/19/23 05:10 10/19/23 05:15 Temperature 99.0 F 98.8 F 98.8 F Pulse Rate 75 70 72 Respiratory Rate 34 H 33 H 33 H Blood Pressure Pulse Oximetry 97 98 98 Oxygen Delivery Method Oxygen Flow Rate 10/19/23 05:20 10/19/23 05:25 10/19/23 05:30 Temperature 98.8 F 98.8 F 98.8 F Pulse Rate 70 74 67 Respiratory Rate 33 H 32 H 33 H Blood Pressure Pulse Oximetry 91 88 L 84 L Oxygen Delivery Method Oxygen Flow Rate 3 10/19/23 05:30 10/19/23 05:35 10/19/23 05:40 Temperature 98.8 F 98.8 F Pulse Rate 69 73 Respiratory Rate 31 H 32 H Blood Pressure 121/61 Pulse Oximetry 97 96 Oxygen Delivery Method Oxygen Flow Rate 10/19/23 05:45 10/19/23 05:50 10/19/23 05:55 Temperature 98.8 F 98.8 F 98.8 F Pulse Rate 73 73 71 Respiratory Rate 32 H 32 H 30 H Blood Pressure Pulse Oximetry 97 98 98 Oxygen Delivery Method Oxygen Flow Rate 10/19/23 06:00 10/19/23 06:05 10/19/23 06:10 Temperature 98.8 F 98.8 F 98.8 F Pulse Rate 70 76 76 Respiratory Rate 31 H 32 H 32 H Blood Pressure Pulse Oximetry 99 99 99 Oxygen Delivery Method Oxygen Flow Rate 3 10/19/23 06:15 10/19/23 06:20 10/19/23 06:25 Temperature 98.8 F 98.8 F 98.8 F Pulse Rate 77 72 88 Respiratory Rate 31 H 30 H 35 H Blood Pressure Pulse Oximetry 93 91 96 Oxygen Delivery Method Oxygen Flow Rate 10/19/23 06:30 10/19/23 06:31 10/19/23 06:31 Temperature 98.8 F 98.8 F Pulse Rate 78 90 Respiratory Rate 33 H 31 H Blood Pressure 99/72 Pulse Oximetry 94 91 Oxygen Delivery Method Oxygen Flow Rate 10/19/23 06:35 10/19/23 06:40 10/19/23 06:44 Temperature 98.8 F 98.8 F Pulse Rate 80 75 73 Respiratory Rate 33 H 35 H 18 Blood Pressure Pulse Oximetry 91 90 L 98 Oxygen Delivery Method Nasal Cannula Oxygen Flow Rate 2 10/19/23 06:45 10/19/23 06:50 10/19/23 06:55 Temperature 98.8 F 98.8 F 98.8 F Pulse Rate 79 79 76 Respiratory Rate 32 H 31 H 26 H Blood Pressure Pulse Oximetry 96 95 95 Oxygen Delivery Method Oxygen Flow Rate 10/19/23 07:00 10/19/23 07:00 10/19/23 07:00 Temperature 98.8 F Pulse Rate 79 Respiratory Rate 25 H Blood Pressure 112/58 L Pulse Oximetry 95 Oxygen Delivery Method Nasal Cannula Oxygen Flow Rate 10/19/23 07:05 10/19/23 07:10 10/19/23 07:15 Temperature 98.8 F 98.8 F 98.8 F Pulse Rate 79 80 78 Respiratory Rate 25 H 28 H 22 Blood Pressure Pulse Oximetry 94 93 92 Oxygen Delivery Method Oxygen Flow Rate 10/19/23 07:20 10/19/23 07:25 10/19/23 07:30 Temperature 99.0 F 99.0 F Pulse Rate 75 74 Respiratory Rate 24 24 Blood Pressure 109/53 L Pulse Oximetry 92 91 Oxygen Delivery Method Oxygen Flow Rate 10/19/23 07:30 10/19/23 07:35 10/19/23 07:40 Temperature 99.0 F 99.0 F 99.0 F Pulse Rate 90 79 78 Respiratory Rate 23 24 24 Blood Pressure Pulse Oximetry 90 L 90 L 89 L Oxygen Delivery Method Oxygen Flow Rate 10/19/23 07:45 10/19/23 07:50 10/19/23 07:55 Temperature 99.0 F 99.0 F 99.0 F Pulse Rate 80 80 78 Respiratory Rate 26 H 31 H 28 H Blood Pressure Pulse Oximetry 89 L 89 L 92 Oxygen Delivery Method Oxygen Flow Rate 10/19/23 08:00 10/19/23 08:00 10/19/23 08:05 Temperature 99.0 F 99.0 F Pulse Rate 79 84 Respiratory Rate 23 29 H Blood Pressure 117/56 L Pulse Oximetry 89 L 89 L Oxygen Delivery Method Oxygen Flow Rate 10/19/23 08:10 10/19/23 08:15 10/19/23 08:20 Temperature 99.0 F 99.0 F 99.0 F Pulse Rate 78 74 74 Respiratory Rate 29 H 30 H 28 H Blood Pressure Pulse Oximetry Oxygen Delivery Method Oxygen Flow Rate 10/19/23 08:25 10/19/23 08:30 10/19/23 08:30 Temperature 99.0 F 99.0 F Pulse Rate 80 77 Respiratory Rate 23 24 Blood Pressure 100/60 Pulse Oximetry Oxygen Delivery Method Oxygen Flow Rate 10/19/23 08:35 10/19/23 08:40 10/19/23 08:45 Temperature 99.0 F 99.0 F 99.0 F Pulse Rate 77 79 75 Respiratory Rate 29 H 28 H 23 Blood Pressure Pulse Oximetry Oxygen Delivery Method Oxygen Flow Rate 10/19/23 08:50 10/19/23 08:55 10/19/23 09:00 Temperature 99.0 F 99.0 F 99.0 F Pulse Rate 74 78 81 Respiratory Rate 28 H 34 H 31 H Blood Pressure Pulse Oximetry Oxygen Delivery Method Oxygen Flow Rate 10/19/23 09:00 10/19/23 09:05 Temperature 99.0 F Pulse Rate 75 Respiratory Rate 30 H Blood Pressure 109/58 L Pulse Oximetry Oxygen Delivery Method Oxygen Flow Rate Oxygen Delivery Method Nasal Cannula Oxygen Flow Rate 2 Quality TeleICU VTE Deep Vein Thrombosis/Pulmonary Embolism Present on Admission: No Assessment & Plan Assessment & Plan narrative: patient seen on camera chart/labs/imaging reviewed no acute events onvernight 73 year old male with PMHx of CAD, Afib, metallic heart valve, recent hernia repair admitted to ICU with: acute blood loss anemia hematoma at surigcal site acute renal failure supratheraputic INR currently afebrile, HD stable no signs of active bleeding plan -avoid sedatives -keep sat above 92% -repeat cbc/coags -transfuse blood products prn -plan for OR today -can hold off diuretics as pts respiratory is stable and no distess is noted -keep map above 65 -will need hep drip post op once ok with surgery -monitor ins/outs -replace lytes prn -gi/dvt ppx, no AC -please call eICU if condition changes -would readdress goals of care and severity of illness daily -will re-eval post op
--- NOTE | 2023-10-19 09:45 | DI.ECHO.S_ITS ---
[place] [facility]---------+ [facility] +---------+ : : [address] : : : : [id number] : : : : Phone: [phone] Echocardiogram Report + + :Name: YISSEL BRYAN Study Date: 10/20/2023 Height: 69 in : [facility] ReadingLocation: Weight: 167 lb : : Gender: Male BSA: 1.9 m2 : :: 1950 Age: 73 yrs BP: 130/60 mmHg: :Reason For Study: SHORTNESS OF BREATH, COLON CANCER : :Ordering Physician: LAURY, : :KATHARINE Performed By: Paul Florentino : :Referring: KATHARINE SCHAEFFER : + + Interpretation Summary The study quality was technically difficult and limited. The ejection fraction is estimated to be 40-45%. There is a severe dyssynchronous contraction pattern, consistent with a conduction abnormality. Diastolic function could not be accurately assessed due to atrial fibrillation. The right ventricle is normal size. Right ventricular systolic function is mildly reduced. There is severe biatrial enlargement. There is a well-seated mechanical mitral prosthesis that may be borderline stenotic however this is unchanged compared to multiple prior echocardiograms. There is a well-seated mechanical mitral prosthesis that may be borderline stenotic however this is unchanged compared to multiple prior echocardiograms. There is moderate to severe tricuspid regurgitation. Pulmonary artery pressures cannot be estimated because of the lack of a measurable TR jet velocity. Procedure: A two-dimensional transthoracic echocardiogram with color flow and Doppler was performed. Comparison is made with the echocardiogram of 04/01/2022. The study quality was technically difficult. The patient was in atrial fibrillation with heart rates between 75-98 bpm during the exam. Left Ventricle: The left ventricle is normal in size. The ejection fraction is estimated to be 40-45%. There is a severe dyssynchronous contraction pattern, consistent with a conduction abnormality. Diastolic function could not be accurately assessed due to atrial fibrillation. Right Ventricle: The right ventricle is normal size. Right ventricular systolic function is mildly reduced. Atria: The left atrium is severely dilated. The right atrium is severely dilated. The interatrial septum grossly appears intact with no obvious evidence for an atrial septal defect. Mitral Valve: There is a mechanical mitral valve. The mitral valve mean gradient is 8.1 mmHg. The peak velocity across the mitral valve is 1.9 m/s. There is no mitral regurgitation. Aortic Valve: There is a mechanical aortic valve. The peak aortic velocity is 3.1 m/sec. The aortic valve mean gradient is 17 mmHg. No aortic regurgitation is present. Tricuspid Valve: The tricuspid valve is not well visualized. There is no tricuspid stenosis. There is moderate to severe tricuspid regurgitation. Pulmonary artery pressures cannot be estimated because of the lack of a measurable TR jet velocity. Pulmonic Valve: The pulmonic valve is not well visualized. There is no pulmonic valvular stenosis. There is a trace or physiologic amount of pulmonic regurgitation. Great Vessels: The aortic root is mildly dilated. The ascending aorta could not be visualized. The inferior vena cava was not visualized. Pericardium/ Pleura There is no pericardial effusion. There is no pleural effusion. MMode/2D Measurements & Calculations LVIDd: 5.6 cm LVOT diam: 2.6 cm LVIDs: 4.2 cm Ao root diam: 3.8 cm FS: 24.3 % asc Aorta Diam: 3.6 cm IVSd: 1.6 cm LVPWd: 1.4 cm LV brasher. diameter/BSA (cm/m^2): 2.9 LV sys. diameter/BSA (cm/m^2): 2.2 LA A2 area: 169.6 cm2 RA long axis: 10.3 cm LA A4 area: 122.9 cm2 RA area: 39.8 cm2 LA length (vol): 12.6 cm RA vol: 131.1 ml LA vol: 1408 ml RA : 68.5 ml/m2 LA vol index: 736.0 ml/m2 RVD1 (basal): 4.1 cm RVD2 (mid): 3.4 cm Doppler Measurements & Calculations Ao V2 max: 315.9 cm/sec LVOT Max Jonah: 97.5 cm/sec Ao V2 mean: 196.7 cm/sec LV V1 max P.9 mmHg Ao max P.0 mmHg LV V1 VTI: 17.2 cm Ao mean P.9 mmHg ANTONIA(I,D): 1.9 cm2 Ao V2 VTI: 50.0 cm ANTONIA(V,D): 1.7 cm2 sev ratio: 0.34 ANTONIA indexed to BSA (cm^2/m^2): 0.98 MV E max jonah: 157.8 cm/sec TR max jonah: 349.0 cm/sec MV A max jonah: 77.0 cm/sec TR max P.2 mmHg MV E/A: 2.0 PA V2 max: 98.9 cm/sec MV dec time: 0.40 sec PA V2 mean: 71.5 cm/sec MVA(VTI): 1.8 cm2 PA mean P.3 mmHg PA pr(Accel): 36.8 mmHg MV V2 mean: 122.7 cm/sec SV(LVOT): 93.2 ml MV mean P.1 mmHg MV V2 VTI: 50.4 cm Reading Physician:08:42 PM
[2023-10-19 10:04] LABS: Hematocrit 23.2 % (41-53); Hemoglobin 7.9 g/dL (13.5-17.5); Mean Corpuscular HGB Conc 33.9 % (30-36); Mean Corpuscular Hemoglobin 32.3 PG (26-34); Mean Corpuscular Volume 95.2 fL (80-100); Platelet Count 158 X10^3/uL (150-400); Red Blood Cell Count 2.44 X10^6/uL (4.5-5.9); Red Cell Distribution Width 18.8 % (11.6-14.8); White Blood Cell Count 15.7 X10^3/uL (4.5-11.0)
[2023-10-19 10:18] LABS: INR 1.4 (0.9-1.3); Prothrombin Time 16.4 SECONDS (9.4-12.5)
--- NOTE | 2023-10-19 12:30 | SLP.IPNOTE ---
INVESTIGATOR FRAUD attempted eval 10/19/23 at 1210pm; pt had gone to surgery. Will re-attempt in AM.
--- NOTE | 2023-10-19 12:31 | DI.RAD.S_ITS ---
PROCEDURE: XR CHEST 1V INDICATIONS: soa TECHNIQUE: One view of the chest was acquired. COMPARISON: [facility], CR, XR CHEST 1V, 03/27/2019, 9:41. FINDINGS: Surgical changes and devices: Sternotomy wires with mildly displaced fractured superior most wire, as before. Sternotomy wires and CABG clips. Aortic valve replacement. Lungs and pleura: Similar appearance of right mid lung patchy consolidation. No pleural effusions or pneumothorax. Mediastinum: Mediastinal contours appear normal. Marked enlargement of the cardiac silhouette, stable compared to prior. Aortic arch is calcified, indicating atherosclerosis. Bones and chest wall: No suspicious bony lesions. Overlying soft tissues appear unremarkable. IMPRESSION: 1. No acute cardiopulmonary process. Similar appearance of right mid lung patchy consolidation which may represent atelectasis and/or scar. 2. Marked enlargement of the cardiac silhouette, stable compared to prior. Dictated by: Meenakshi Ferreira M.D. on 10/19/2023 at 13:04 Approved by: Meenakshi Ferreira M.D. on 10/19/2023 at 13:21
--- NOTE | 2023-10-19 12:36 | SUR.OPER ---
Supine on padded OR bed, head on pillow, arms secured on padded arm boards at <90 degrees abduction, legs uncrossed, safety belt at thigh, tape over blanket over lower legs.
--- NOTE | 2023-10-19 12:43 | P.PN_ITS ---
Subjective Subjective Date Patient Seen: 10/19/23 Time Patient Seen: 12:43 Interval history: 2 units FFP and 2 units PRBCs Hemodynamically stable Cr 2.4 from 2.8 at admission Minimal pain Exam Vital Signs (past 8 hours): - 10/19/23 04:45 10/19/23 04:50 10/19/23 04:55 Temperature 98.8 F 99.0 F 98.8 F Pulse Rate 76 75 74 Respiratory Rate 32 H 33 H 30 H Blood Pressure Pulse Oximetry 94 94 95 Oxygen Delivery Method Oxygen Flow Rate 10/19/23 05:00 10/19/23 05:00 10/19/23 05:05 Temperature 99.0 F 99.0 F Pulse Rate 77 75 Respiratory Rate 25 H 34 H Blood Pressure 94/50 L Pulse Oximetry 97 97 Oxygen Delivery Method Oxygen Flow Rate 10/19/23 05:10 10/19/23 05:15 10/19/23 05:20 Temperature 98.8 F 98.8 F 98.8 F Pulse Rate 70 72 70 Respiratory Rate 33 H 33 H 33 H Blood Pressure Pulse Oximetry 98 98 91 Oxygen Delivery Method Oxygen Flow Rate 10/19/23 05:25 10/19/23 05:30 10/19/23 05:30 Temperature 98.8 F 98.8 F Pulse Rate 74 67 Respiratory Rate 32 H 33 H Blood Pressure 121/61 Pulse Oximetry 88 L 84 L Oxygen Delivery Method Oxygen Flow Rate 3 10/19/23 05:35 10/19/23 05:40 10/19/23 05:45 Temperature 98.8 F 98.8 F 98.8 F Pulse Rate 69 73 73 Respiratory Rate 31 H 32 H 32 H Blood Pressure Pulse Oximetry 97 96 97 Oxygen Delivery Method Oxygen Flow Rate 10/19/23 05:50 10/19/23 05:55 10/19/23 06:00 Temperature 98.8 F 98.8 F 98.8 F Pulse Rate 73 71 70 Respiratory Rate 32 H 30 H 31 H Blood Pressure Pulse Oximetry 98 98 99 Oxygen Delivery Method Oxygen Flow Rate 3 10/19/23 06:05 10/19/23 06:10 10/19/23 06:15 Temperature 98.8 F 98.8 F 98.8 F Pulse Rate 76 76 77 Respiratory Rate 32 H 32 H 31 H Blood Pressure Pulse Oximetry 99 99 93 Oxygen Delivery Method Oxygen Flow Rate 10/19/23 06:20 10/19/23 06:25 10/19/23 06:30 Temperature 98.8 F 98.8 F 98.8 F Pulse Rate 72 88 78 Respiratory Rate 30 H 35 H 33 H Blood Pressure Pulse Oximetry 91 96 94 Oxygen Delivery Method Oxygen Flow Rate 10/19/23 06:31 10/19/23 06:31 10/19/23 06:35 Temperature 98.8 F 98.8 F Pulse Rate 90 80 Respiratory Rate 31 H 33 H Blood Pressure 99/72 Pulse Oximetry 91 91 Oxygen Delivery Method Oxygen Flow Rate 10/19/23 06:40 10/19/23 06:44 10/19/23 06:45 Temperature 98.8 F 98.8 F Pulse Rate 75 73 79 Respiratory Rate 35 H 18 32 H Blood Pressure Pulse Oximetry 90 L 98 96 Oxygen Delivery Method Nasal Cannula Oxygen Flow Rate 2 10/19/23 06:50 10/19/23 06:55 10/19/23 07:00 Temperature 98.8 F 98.8 F Pulse Rate 79 76 Respiratory Rate 31 H 26 H Blood Pressure 112/58 L Pulse Oximetry 95 95 Oxygen Delivery Method Oxygen Flow Rate 10/19/23 07:00 10/19/23 07:00 10/19/23 07:05 Temperature 98.8 F 98.8 F Pulse Rate 79 79 Respiratory Rate 25 H 25 H Blood Pressure Pulse Oximetry 95 94 Oxygen Delivery Method Nasal Cannula Oxygen Flow Rate 10/19/23 07:10 10/19/23 07:15 10/19/23 07:20 Temperature 98.8 F 98.8 F 99.0 F Pulse Rate 80 78 75 Respiratory Rate 28 H 22 24 Blood Pressure Pulse Oximetry 93 92 92 Oxygen Delivery Method Oxygen Flow Rate 10/19/23 07:25 10/19/23 07:30 10/19/23 07:30 Temperature 99.0 F 99.0 F Pulse Rate 74 90 Respiratory Rate 24 23 Blood Pressure 109/53 L Pulse Oximetry 91 90 L Oxygen Delivery Method Oxygen Flow Rate 10/19/23 07:35 10/19/23 07:40 10/19/23 07:45 Temperature 99.0 F 99.0 F 99.0 F Pulse Rate 79 78 80 Respiratory Rate 24 24 26 H Blood Pressure Pulse Oximetry 90 L 89 L 89 L Oxygen Delivery Method Oxygen Flow Rate 10/19/23 07:50 10/19/23 07:55 10/19/23 08:00 Temperature 99.0 F 99.0 F Pulse Rate 80 78 Respiratory Rate 31 H 28 H Blood Pressure 117/56 L Pulse Oximetry 89 L 92 Oxygen Delivery Method Oxygen Flow Rate 10/19/23 08:00 10/19/23 08:05 10/19/23 08:10 Temperature 99.0 F 99.0 F 99.0 F Pulse Rate 79 84 78 Respiratory Rate 23 29 H 29 H Blood Pressure Pulse Oximetry 89 L 89 L Oxygen Delivery Method Oxygen Flow Rate 10/19/23 08:15 10/19/23 08:20 10/19/23 08:25 Temperature 99.0 F 99.0 F 99.0 F Pulse Rate 74 74 80 Respiratory Rate 30 H 28 H 23 Blood Pressure Pulse Oximetry Oxygen Delivery Method Oxygen Flow Rate 10/19/23 08:30 10/19/23 08:30 10/19/23 08:35 Temperature 99.0 F 99.0 F Pulse Rate 77 77 Respiratory Rate 24 29 H Blood Pressure 100/60 Pulse Oximetry Oxygen Delivery Method Oxygen Flow Rate 10/19/23 08:40 10/19/23 08:45 10/19/23 08:50 Temperature 99.0 F 99.0 F 99.0 F Pulse Rate 79 75 74 Respiratory Rate 28 H 23 28 H Blood Pressure Pulse Oximetry Oxygen Delivery Method Oxygen Flow Rate 10/19/23 08:55 10/19/23 09:00 10/19/23 09:00 Temperature 99.0 F 99.0 F Pulse Rate 78 81 Respiratory Rate 34 H 31 H Blood Pressure 109/58 L Pulse Oximetry Oxygen Delivery Method Oxygen Flow Rate 10/19/23 09:05 10/19/23 09:10 10/19/23 09:15 Temperature 99.0 F 99.0 F 99.0 F Pulse Rate 75 88 76 Respiratory Rate 30 H 35 H 31 H Blood Pressure Pulse Oximetry Oxygen Delivery Method Oxygen Flow Rate 10/19/23 09:20 10/19/23 09:25 10/19/23 09:30 Temperature 99.0 F 99.0 F 99.0 F Pulse Rate 77 79 73 Respiratory Rate 33 H 33 H 31 H Blood Pressure Pulse Oximetry Oxygen Delivery Method Oxygen Flow Rate 10/19/23 09:30 10/19/23 09:35 10/19/23 09:40 Temperature 99.0 F 99.0 F Pulse Rate 78 79 Respiratory Rate 31 H 30 H Blood Pressure 108/58 L Pulse Oximetry Oxygen Delivery Method Oxygen Flow Rate 10/19/23 09:45 10/19/23 09:50 10/19/23 09:55 Temperature 99.0 F 99.0 F 99.0 F Pulse Rate 77 78 83 Respiratory Rate 31 H 34 H 31 H Blood Pressure Pulse Oximetry Oxygen Delivery Method Oxygen Flow Rate 10/19/23 10:00 10/19/23 10:00 10/19/23 10:05 Temperature 99.0 F 99.0 F Pulse Rate 76 76 Respiratory Rate 30 H 30 H Blood Pressure 98/61 Pulse Oximetry Oxygen Delivery Method Oxygen Flow Rate 10/19/23 10:10 10/19/23 10:15 10/19/23 10:20 Temperature 99.0 F 99.0 F 99.0 F Pulse Rate 78 78 81 Respiratory Rate 28 H 25 H 27 H Blood Pressure Pulse Oximetry Oxygen Delivery Method Oxygen Flow Rate 10/19/23 10:25 10/19/23 10:30 10/19/23 10:30 Temperature 99.1 F 99.1 F Pulse Rate 74 78 Respiratory Rate 32 H 30 H Blood Pressure 96/52 L Pulse Oximetry Oxygen Delivery Method Oxygen Flow Rate 10/19/23 10:35 10/19/23 10:40 10/19/23 10:45 Temperature 99.1 F 99.1 F 99.1 F Pulse Rate 79 72 80 Respiratory Rate 30 H 31 H 31 H Blood Pressure Pulse Oximetry Oxygen Delivery Method Oxygen Flow Rate 10/19/23 10:50 10/19/23 10:55 10/19/23 11:00 Temperature 99.1 F 99.1 F 99.1 F Pulse Rate 78 81 76 Respiratory Rate 31 H 35 H 27 H Blood Pressure Pulse Oximetry Oxygen Delivery Method Oxygen Flow Rate 10/19/23 11:00 10/19/23 12:12 Temperature 98.2 F Pulse Rate 78 Respiratory Rate 15 Blood Pressure 109/57 L 109/63 Pulse Oximetry 92 Oxygen Delivery Method Nasal Cannula Oxygen Flow Rate 4 Oxygen Delivery Method Nasal Cannula Oxygen Flow Rate 4 Narrative Exam Narrative: Gen-Elderly man alert and oriented no distress Chest-Mildly labored resp with accessory muscle use Cardiac-Afib Abdomen-No peritonitis, extensive echymosis over abdominal wall Objective Labs 10/19/23 09:55 10/19/23 03:18 Labs: Laboratory Results - last 24 hr 10/18/23 10/18/23 10/18/23 15:00 15:01 15:18 WBC 16.0 H RBC 2.50 L Hgb 8.5 L Hct 25.3 L MCV 101.1 H MCH 34.0 MCHC 33.6 RDW 15.1 H Plt Count 173 Neut % (Auto) 84.9 H Lymph % (Auto) 3.2 L Phillips % (Auto) 11.9 Eos % (Auto) 0.0 L Baso % (Auto) 0.0 Neut # (Auto) 39266 H Lymph # (Auto) 500 L Phillips # (Auto) 1900 H Eos # (Auto) 0 Baso # (Auto) 0 PT 58.1 H INR 5.0 H* APTT 37 H Sodium 140 Potassium 4.2 Chloride 105 Carbon Dioxide 18 L BUN 47 H Creatinine 2.81 H Estimated GFR 23 L BUN/Creatinine Ratio 16.7 Glucose 186 H Calcium 10.9 H Magnesium 2.4 H Total Bilirubin 1.8 H AST 35 ALT 30 Alkaline Phosphatase 48 Total Creatine Kinase 67 Troponin I 0.065 H NT-Pro-B Natriuret Pep 6410 H Total Protein 6.6 Albumin 3.8 Globulin 2.8 Albumin/Globulin Ratio 1.4 Lipase 245 Nasal Screen MRSA (PCR) Blood Type O Positive Antibody Screen Negative Crossmatch See Detail 10/18/23 10/18/23 10/19/23 19:30 22:03 00:20 WBC RBC Hgb 8.1 L Hct 23.5 L MCV MCH MCHC RDW Plt Count Neut % (Auto) Lymph % (Auto) Phillips % (Auto) Eos % (Auto) Baso % (Auto) Neut # (Auto) Lymph # (Auto) Phillips # (Auto) Eos # (Auto) Baso # (Auto) PT 27.8 H D INR 2.4 H APTT Sodium 140 Potassium 4.3 Chloride 108 H Carbon Dioxide 27 BUN 52 H Creatinine 2.50 H Estimated GFR 26 L BUN/Creatinine Ratio 20.8 Glucose 118 H Calcium 10.4 H Magnesium Total Bilirubin 2.1 H AST 26 ALT 20 Alkaline Phosphatase 40 Total Creatine Kinase Troponin I 0.084 H 0.080 H NT-Pro-B Natriuret Pep Total Protein 5.6 L Albumin 3.0 L Globulin 2.6 Albumin/Globulin Ratio 1.2 Lipase Nasal Screen MRSA (PCR) Not detected Blood Type Antibody Screen Crossmatch 10/19/23 10/19/23 03:18 09:55 WBC 16.1 H 15.7 H RBC 2.45 L 2.44 L Hgb 8.0 L 7.9 L Hct 23.3 L 23.2 L MCV 95.2 D 95.2 MCH 32.8 32.3 MCHC 34.5 33.9 RDW 19.6 H 18.8 H Plt Count 150 158 Neut % (Auto) 83.5 H Lymph % (Auto) 3.1 L Phillips % (Auto) 13.2 Eos % (Auto) 0.0 L Baso % (Auto) 0.2 Neut # (Auto) 32190 H Lymph # (Auto) 500 L Phillips # (Auto) 2100 H Eos # (Auto) 0 Baso # (Auto) 0 PT 19.2 H D 16.4 H INR 1.7 H 1.4 H APTT Sodium 141 Potassium 4.3 Chloride 109 H Carbon Dioxide 27 BUN 51 H Creatinine 2.40 H Estimated GFR 28 L BUN/Creatinine Ratio 21.3 Glucose 106 Calcium 9.9 Magnesium Total Bilirubin 2.0 H AST 27 ALT 19 Alkaline Phosphatase 44 Total Creatine Kinase Troponin I NT-Pro-B Natriuret Pep Total Protein 5.7 L Albumin 3.1 L Globulin 2.6 Albumin/Globulin Ratio 1.2 Lipase Nasal Screen MRSA (PCR) Blood Type Antibody Screen Crossmatch [facility] Medical History History of COVID-19 (08/2019) Asthma TIA (transient ischemic attack) Difficulty swallowing GERD (gastroesophageal reflux disease) HTN (hypertension) Secondary pulmonary arterial hypertension Cor pulmonale LBBB (left bundle branch block) Anxiety Colon cancer Atrial fibrillation Chronic anticoagulation Stroke 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 CHF (congestive heart failure) Surgical History History of hip replacement, total (07/2014) History of surgery (~03/2010) History of esophagogastroduodenoscopy (EGD) History of cardiac cath S/P ascending aortic aneurysm repair (07/1994) History of abdominal aortic aneurysm repair Status post colectomy (07/2011) Aortic valve replaced (07/1994) Mitral valve replaced (2009) Social History household members: spouse Smoking Status: Former smoker alcohol intake: never Assessment & Plan Assessment & Plan narrative: Jurgen is a 73-year-old man with significant medical comorbidities who is anticoagulated for mechanical valves with a large intra-abdominal and abdominal wall hematoma with recurrence of his incisional hernia. OR today for abdominal washout and repair of hernia. Overview of the operation discussed. He understands he has significant perioperative risks including but not limited to hemorrhage, infection, [place], CVA, reoccurrence of hernia, damage to surrounding structures. His questions have been answered and he provides his consent to proceed. Quality VTE Deep Vein Thrombosis/Pulmonary Embolism Present on Admission: No
[2023-10-19] MEDS: LACTATED RINGERS 1,000 ML 42 ML IV ×2 (13:00→13:57)
--- NOTE | 2023-10-19 13:23 | CM.DANOTE ---
DCP Assessment note Pt is a 73yo M with a complex PMH. Per ED note, atrial fibrillation on warfarin, history of colon cancer who developed incisional hernia at the site of his: Extraction site and had elective repair on 10/12/[address] Tinoco. Pt is POD 6. OR today 3.[address] Tinoco for abdominal washout and repair of hernia. [facility], [facility], and tele-ICU all following. PCP [facility]. Payer [facility] and self pay CHEMISTS reviewed EMR. ICU with acute blood loss anemia, hematoma at surigcal site, acute renal failure, supratheraputic INR (Tele-ICU Note). From RN, pt has not been stable enough to ambulate since arrival. Pt in surgery with Alejandrina when this CHEMISTS went to complete bedside assessment. Spouse in room waiting for spouse to get out of surgery. Spouse Christina ([phone]) reports pt is indep/drives/ambulates without DME at baseline. Pt lives with spouse in [place]. Reports at this point no CM needs. Spouse reports likely pt's preference is to return home with her support- no barriers to that identified. Plan: medical POC continues to unfold. CM team will follow closely for any DCP needs post op. CM team will follow if concerns for PT eval post op if indicated. Anticipate home with spouse when medically stable. WILLARD Grewal Discharge Planning/Care Management CM Discharge Assessment Start: 10/19/23 13:22 Freq: Status: Active Protocol: Document 10/19/23 13:22 (Rec: 10/19/23 13:23 [id number]) Discharge Planning Assessment Assigned Analysis Intern WILLARD Romero` DPOA/Assigned Designee Name Christina spouse Contact Information [phone] Advance Directives? Yes Advance Directives on File No: states full code History Provided By Patient Prior Living Arrangements House Household Members spouse Type of transporation used prior to Drives own vehicle admit Independent with ADL's Yes Is patient alert and oriented? Yes Discharge Plan Home Whiteboard Updated in Patient Room with Yes name and ext. # of Analysis Intern Review Status In Process Next Review Type Continued Stay Review
[2023-10-19] MEDS: levoFLOXacin 500 MG/100 ML PIGGYBACK 100 MG IV (13:33)
[2023-10-19] MEDS: BUPIVACAINE 0.25% (PF) VIAL 30 ML INJ (13:40)
--- NOTE | 2023-10-19 13:50 | PM.PROC.1 ---
Procedures Date/Time Date of procedure: 10/19/23 Time of procedure: 13:15 Arterial Line Time out performed: Yes Size (Gauge): 20 Technique used: guide wire technique Post-Procedure: dry sterile dressing placed Patient tolerated procedure: Well Complications: none Site: right and radial
--- NOTE | 2023-10-19 14:31 | PM.OP.1 ---
Operative Date/Time/Diagnoses Date of procedure: 10/19/23 Time of procedure: 14:31 Pre-op diagnosis: Acute blood loss anemia Intra-abdominal hematoma Post-op diagnosis: other (Rectus sheath hematoma, abdominal compartment syndrome) Procedure & Clinicians Procedure: Abdominal washout Repair of 5 cm incisional hernia Same procedure as scheduled: Yes Indications: 70-year-old man on chronic anticoagulation for mechanical valves underwent a repair of an incisional left lower quadrant incision last week. He returned 6 days later with resp distress, VANDANA and a large abdominal wall hematoma, intra peritoneal hematoma and possible reoccurence of the hernia. Surgeon: Chivo Tinoco [employer] Supervisor: Phoenix Garcai Operative Notes Findings: Rectus sheath hematoma 2.5 L of unclotted blood within the abdomen No recurrence of hernia Specimen(s): none sent Estimated Blood Loss (mL): 10 Procedure in detail: Patient was brought to the operating room placed supine on the table. Bilateral lower extremity compression devices were applied. General anesthesia was induced he was intubated with an endotracheal tube. He received levofloxacin 500 mg IV prior to skin incision. A arterial catheter was placed in the right upper extremity. He was then prepped and draped in sterile fashion time-out performed. The previous incision in the left lower quadrant was opened and several 100 mL of hematoma were within the abdominal wall. The anterior sheath was opened and this demonstrated a left rectus sheath hematoma. The mesh was removed and the posterior sheath was intact, no evidence of hernia recurrence. The posterior sheath was opened and there was approximately 2.5 L of unclotted blood within the abdominal cavity. This was suctioned out and then the abdomen was irrigated with 5 L of sterile saline until it returned clear. 8 cm Bard Ventralex mesh was placed into the abdominal cavity with the anti-adhesive surface towards the abdomen. It was tacked to the posterior sheath using interrupted Ethibond suture. The posterior sheath was then closed over the mesh. The rectus muscle was examined and well bruised there was no evidence of active hemorrhage. The subcutaneous tissue was reapproximated with Vicryl. A Lorri drain was placed into the subcutaneous tissue and the skin was closed with soo. The estimated blood loss for the operation was 10 mL however 2.5 L of blood was removed from the abdomen. Patient was extubated transferred to recovery in stable condition. Complications: none Post-operative Condition: stable Disposition: ICU
--- NOTE | 2023-10-19 15:28 | PC.NURSE ---
Addendum entered by Mik Gutiérrez R.N. 10/19/23 17:29: Extuabted at 1728, placed on 4L NC. Tolerated well. Family and RT at bedside. Original Note: Patient received directly from OR at 1315. Intubated on pressure support. Responding to commands and able to communicate by shaking or nodding head. Art line zeroed, vitals stable, family updated. RT and RN will remain at bedside.
--- NOTE | 2023-10-19 15:47 | DI.RAD.S_ITS ---
PROCEDURE: XR CHEST 1V INDICATIONS: ett position TECHNIQUE: One view of the chest was acquired. COMPARISON: [facility], , XR CHEST 1V, 10/19/2023, 12:31. FINDINGS: Surgical changes and devices: Endotracheal tube terminates 5 cm above the azucena. Sternotomy wires with fracture of the superior most wire, as before. Aortic valve replacement. Lungs and pleura: Slightly decreased conspicuity of the right mid lung patchy consolidation. No pleural effusions or pneumothorax. Mediastinum: Mediastinal contours appear normal. Marked cardiomegaly, as before. Bones and chest wall: No suspicious bony lesions. Overlying soft tissues appear unremarkable. IMPRESSION: 1. Endotracheal tube terminates 5 cm above the azucena. 2. Right mid lung patchy consolidation has slightly decreased in conspicuity. Attention on follow-up imaging. 3. Marked cardiomegaly, as before. Dictated by: Meenakshi Ferreira M.D. on 10/19/2023 at 17:06 Approved by: Meenakshi Ferreira M.D. on 10/19/2023 at 17:12
--- NOTE | 2023-10-19 15:56 | PM.EICU.INT ---
Teleintensivist Intervention Date/Time Was camera activated?: Yes Issue(s) Addressed Issue(s): Hemorrhage and Resp. Distress/Ventilator management Intervention(s) :: pt seen post op. now intubated s/p ex-lap, hemotoma evacuation, 2.5L of blood in intraabominal space currently afebrile, HD stable, intubated, comfortable plan -stat labs -cxr -sbt -will eval for ability to extubate this evening if not in am -d/w bedside nursing team, Dr. Tinoco, surgery
[2023-10-19 16:11] LABS: Hematocrit 23.4 % (41-53); Hemoglobin 7.9 g/dL (13.5-17.5); Mean Corpuscular HGB Conc 33.9 % (30-36); Mean Corpuscular Hemoglobin 32.6 PG (26-34); Mean Corpuscular Volume 96.2 fL (80-100); Platelet Count 161 X10^3/uL (150-400); Red Blood Cell Count 2.43 X10^6/uL (4.5-5.9); Red Cell Distribution Width 18.8 % (11.6-14.8); White Blood Cell Count 15.1 X10^3/uL (4.5-11.0)
[2023-10-19 16:17] LABS: INR 1.4 (0.9-1.3); Prothrombin Time 15.7 SECONDS (9.4-12.5)
[2023-10-19 16:22] LABS: Alanine Aminotransferase 19 IU/L (<50); Albumin 3.1 g/dL (3.5-5.0); Albumin Globulin Ratio 1.2 (1.0-2.8); Alkaline Phosphatase 45 U/L (38-126); Aspartate Aminotransferase 26 IU/L (17-59); BUN Creatinine Ratio 27.3 (6-22); Bilirubin Total 1.7 mg/dL (0.2-1.3); Blood Urea Nitrogen 45 mg/dL (9-20); Calcium 9.7 mg/dL (8.4-10.2); Carbon Dioxide 25 mmol/L (22-32); Chloride 112 mmol/L (98-107); Estimated Glomerular Filt Rate 44 mL/min (>60); Globulin 2.6 g/dL (1.7-4.1); Glucose 122 mg/dL (80-110); HEMOLYSIS < 15 (0-50); Magnesium 2.1 mg/dL (1.6-2.3); Phosphorous 3.9 mg/dL (2.3-3.7); Potassium 4.1 mmol/L (3.4-5.1); Sodium 140 mmol/L (137-145); Total Protein 5.7 g/dL (6.3-8.2)
--- NOTE | 2023-10-19 20:37 | PM.ICURNDS ---
- Date Patient Seen: 10/19/23 Time Patient Seen: 20:38 :: This patient was seen via real time interactive two-way audiovisual telecommunication. Note: extubated doing well afebrile, HD stable, no sign of bleeding ivf changes monitor for fluid overload
[2023-10-19] MEDS: LORATADINE 10 MG TABLET PO (20:46)
[2023-10-19] MEDS: LACTATED RINGERS 1,000 ML 100 ML IV ×2 (21:06→21:46)
[2023-10-20] VITALS (54 sets, daily range): BP systolic 88–141; BP diastolic 50–72; PULSE 79–109; RESP 18–88; TEMP 36.8–37.4; O2SAT 68–100
[2023-10-20] MEDS: LACTATED RINGERS 1,000 ML 100 ML IV (06:40)
[2023-10-20] MEDS: PANTOPRAZOLE 40 MG VIAL IV (08:36)
[2023-10-20] MEDS: FERROUS SULFATE 325 MG TABLET PO (08:36)
[2023-10-20] MEDS: IPRATROPIUM 0.06% NASAL 15 ML 2 SPRAY NASAL ×2 (08:37→20:35)
--- NOTE | 2023-10-20 09:38 | P.TELICUPN_ITS ---
Subjective Subjective IF CAMERA ACTIVATED, patient seen via real-time interactive audiovisual communication: Camera activated Consent obtained for tele-building supplies salesperson retail care: Yes Patient Location: ICU Provider location (State): [place] Other participants/roles: bedside nursing team Interval history: no acute events overnight Current Medications Current Medications Medications: Home Medications albuterol sulfate 90 mcg/actuation aerosol inhaler (Ventolin HFA) 2 puff inhalation Q6H PRN Shortness Of Breath 09/15/23 [History Confirmed 10/18/23] atorvastatin 20 mg tablet 20 mg PO DAILY 09/15/23 [History Confirmed 10/18/23] ipratropium bromide 42 mcg (0.06 %) nasal spray 2 spray intranasal TID 09/15/23 [History Confirmed 10/18/23] loratadine 10 mg tablet (Allergy Relief (loratadine)) 10 mg PO DAILY 09/15/23 [History Confirmed 10/18/23] metoprolol succinate 50 mg tablet,extended release 24 hr 50 mg PO BID 09/15/23 [History Confirmed 10/18/23] montelukast 10 mg tablet 10 mg PO DAILY 09/15/23 [History Confirmed 10/18/23] omeprazole 20 mg capsule,delayed release 20 mg PO BID 09/15/23 [History Confirmed 10/18/23] sacubitril 24 mg-valsartan 26 mg tablet (Entresto) 1 tab PO BID 09/15/23 [History Confirmed 10/18/23] spironolactone 25 mg tablet 12.5 mg PO DAILY 09/15/23 [History Confirmed 10/18/23] torsemide 20 mg tablet 10 mg PO DAILY 09/15/23 [History Confirmed 10/18/23] enoxaparin 80 mg SUBCUT DAILY 10/04/23 [History Confirmed 10/18/23] acetaminophen 325 mg capsule (Tylenol) 650 mg (2 x 325 mg) PO QID PRN pain #60 caps 10/12/23 [Rx Confirmed 10/18/23] warfarin 7.5 mg tablet See Rx Instructions .Route .COMPLEX 10/12/23 [History Confirmed 10/18/23] aspirin 81 mg tablet,delayed release 81 mg PO DAILY 10/18/23 [History Confirmed 10/18/23] cholecalciferol (vitamin D3) 25 mcg (1,000 unit) tablet 25 mcg PO DAILY 10/18/23 [History Confirmed 10/18/23] docusate sodium 100 mg capsule (Colace) 100 mg PO BID PRN Constipation 10/18/23 [History Confirmed 10/18/23] Visit Medications (administered) Generic Name Dose Route Start Last Admin Trade Name Robbie PRN Reason Stop Dose Admin Albuterol 2.5 mg 10/18/23 18:16 10/19/23 06:43 Albuterol 2.5 Mg/3 Ml Neb (Adult) INH 2.5 mg Q6H PRN Administration Shortness Of Breath Benzocaine 1 each 10/18/23 20:03 10/19/23 09:11 Benzocaine/Menthol 1 Louis Pkt PO 1 each Q1HR PRN Administration Sore Throat Ferrous Sulfate 325 mg 10/20/23 09:00 10/20/23 08:36 Ferrous Sulfate 325 Mg Tablet PO 325 mg DAILY GHASSAN Administration Ipratropium Mertens 2 spray 10/18/23 21:00 10/20/23 08:37 Ipratropium 0.06% Nasal 15 Ml NASAL 2 spray TID GHASSAN Administration Loratadine 10 mg 10/18/23 21:00 10/19/23 20:46 Loratadine 10 Mg Tablet PO 10 mg BEDTIME GHASSAN Administration Pantoprazole Sodium 40 mg 10/18/23 19:20 10/20/23 08:36 Pantoprazole 40 Mg Vial IV 40 mg DAILY GHASSAN Administration Objective Ventilator Parameters: Ventilator Settings FiO2 30 CPAP Pressure Amount 5 Ventilator Pressure Support 10 I:E Ratio 1:3.1 Patient Position HOB >= 30 degrees Labs 10/19/23 16:00 10/19/23 16:00 Labs: Laboratory Results - last 24 hr 10/19/23 10/19/23 09:55 16:00 WBC 15.7 H 15.1 H RBC 2.44 L 2.43 L Hgb 7.9 L 7.9 L Hct 23.2 L 23.4 L MCV 95.2 96.2 MCH 32.3 32.6 MCHC 33.9 33.9 RDW 18.8 H 18.8 H Plt Count 158 161 PT 16.4 H 15.7 H INR 1.4 H 1.4 H Sodium 140 Potassium 4.1 Chloride 112 H Carbon Dioxide 25 BUN 45 H Creatinine 1.65 H Estimated GFR 44 L BUN/Creatinine Ratio 27.3 H Glucose 122 H Calcium 9.7 Phosphorus 3.9 H Magnesium 2.1 Total Bilirubin 1.7 H AST 26 ALT 19 Alkaline Phosphatase 45 Total Protein 5.7 L Albumin 3.1 L Globulin 2.6 Albumin/Globulin Ratio 1.2 Exam Vital Signs (past 8 hours): - 10/20/23 02:00 10/20/23 02:00 10/20/23 02:30 Temperature 99.1 F 99.0 F Pulse Rate 79 90 Respiratory Rate 19 74 H Blood Pressure 107/56 L Pulse Oximetry 100 100 Oxygen Delivery Method Oxygen Flow Rate 3 10/20/23 02:30 10/20/23 03:00 10/20/23 03:00 Temperature 99.3 F Pulse Rate 86 Respiratory Rate 18 Blood Pressure 118/55 L 114/59 L Pulse Oximetry 100 Oxygen Delivery Method Oxygen Flow Rate 3 10/20/23 03:30 10/20/23 03:30 10/20/23 04:00 Temperature 99.3 F Pulse Rate 87 Respiratory Rate 79 H Blood Pressure 110/58 L 114/57 L Pulse Oximetry 100 Oxygen Delivery Method Oxygen Flow Rate 10/20/23 04:00 10/20/23 04:32 10/20/23 04:32 Temperature 99.3 F 99.3 F Pulse Rate 83 83 Respiratory Rate 19 75 H Blood Pressure 98/50 L Pulse Oximetry 100 100 Oxygen Delivery Method Oxygen Flow Rate 3 10/20/23 05:00 10/20/23 05:00 10/20/23 05:00 Temperature 99.1 F Pulse Rate 85 Respiratory Rate 19 Blood Pressure 100/60 Pulse Oximetry 100 Oxygen Delivery Method Nasal Cannula Oxygen Flow Rate 3 10/20/23 05:31 10/20/23 05:31 10/20/23 06:00 Temperature 99.0 F 99.0 F Pulse Rate 82 81 Respiratory Rate 80 H 79 H Blood Pressure 123/63 Pulse Oximetry 100 100 Oxygen Delivery Method Oxygen Flow Rate 10/20/23 06:00 10/20/23 06:30 10/20/23 06:30 Temperature 99.1 F Pulse Rate 80 Respiratory Rate 48 H Blood Pressure 130/60 118/56 L Pulse Oximetry 100 Oxygen Delivery Method Oxygen Flow Rate 3 10/20/23 07:00 10/20/23 07:00 10/20/23 07:30 Temperature 99.0 F 99.0 F Pulse Rate 80 80 Respiratory Rate 34 H 54 H Blood Pressure 118/56 L 125/56 L Pulse Oximetry 100 100 Oxygen Delivery Method Oxygen Flow Rate 10/20/23 07:30 10/20/23 08:00 10/20/23 08:00 Temperature 99.0 F Pulse Rate 81 Respiratory Rate 42 H Blood Pressure 111/50 L 119/56 L Pulse Oximetry 100 Oxygen Delivery Method Oxygen Flow Rate 10/20/23 08:30 10/20/23 08:30 10/20/23 09:00 Temperature 98.8 F Pulse Rate 84 Respiratory Rate 52 H Blood Pressure 125/56 L Pulse Oximetry 100 Oxygen Delivery Method Nasal Cannula Oxygen Flow Rate Oxygen Delivery Method Nasal Cannula Oxygen Flow Rate 3 Quality TeleICU VTE Deep Vein Thrombosis/Pulmonary Embolism Present on Admission: No Assessment & Plan Assessment & Plan narrative: patient seen on camera chart/labs/imaging reviewed no acute events overnight 73 year old male with PMHx of CAD, Afib, metallic heart valve, recent hernia repair admitted to ICU with: acute blood loss anemia hematoma at surigcal site acute renal failure supratheraputic INR currently afebrile, HD stable extubated doing well no signs of active bleeding plan -minimize opiod use -keep sat above 92% -check labs today cbc/coags -would suggest hep drip for AC, hold of on starting coumadin for now. if no bleeding on heparin then would bridge. -transfuse blood products prn -keep map above 65 -monitor ins/outs -replace lytes prn -gi/dvt ppx, no AC -please call eICU if condition changes
--- NOTE | 2023-10-20 09:42 | SLP.IPNOTE ---
BOXING AND PRESSING SUPERVISOR reccomendations note: 1. Meds with nectar thick liquids 2. Otherwise, continue thin liquids upright 90 degrees
--- NOTE | 2023-10-20 10:08 | PM.PN.1 ---
Subjective Subjective Date Patient Seen: 10/20/23 Time Patient Seen: 09:30 Interval history: CC: abdominal pain Feeling ok this morning he is demolishing breakfast nicely No pain if he doesn't move Goal is work with PT today maybe up to chair as able Focus on cough suppression Exam Vital Signs (past 8 hours): - 10/20/23 02:30 10/20/23 02:30 10/20/23 03:00 Temperature 99.0 F Pulse Rate 90 Respiratory Rate 74 H Blood Pressure 118/55 L 114/59 L Pulse Oximetry 100 Oxygen Delivery Method Oxygen Flow Rate 10/20/23 03:00 10/20/23 03:30 10/20/23 03:30 Temperature 99.3 F 99.3 F Pulse Rate 86 87 Respiratory Rate 18 79 H Blood Pressure 110/58 L Pulse Oximetry 100 100 Oxygen Delivery Method Oxygen Flow Rate 3 10/20/23 04:00 10/20/23 04:00 10/20/23 04:32 Temperature 99.3 F Pulse Rate 83 Respiratory Rate 19 Blood Pressure 114/57 L 98/50 L Pulse Oximetry 100 Oxygen Delivery Method Oxygen Flow Rate 3 10/20/23 04:32 10/20/23 05:00 10/20/23 05:00 Temperature 99.3 F 99.1 F Pulse Rate 83 85 Respiratory Rate 75 H 19 Blood Pressure 100/60 Pulse Oximetry 100 100 Oxygen Delivery Method Oxygen Flow Rate 3 10/20/23 05:00 10/20/23 05:31 10/20/23 05:31 Temperature 99.0 F Pulse Rate 82 Respiratory Rate 80 H Blood Pressure 123/63 Pulse Oximetry 100 Oxygen Delivery Method Nasal Cannula Oxygen Flow Rate 10/20/23 06:00 10/20/23 06:00 10/20/23 06:30 Temperature 99.0 F 99.1 F Pulse Rate 81 80 Respiratory Rate 79 H 48 H Blood Pressure 130/60 Pulse Oximetry 100 100 Oxygen Delivery Method Oxygen Flow Rate 3 10/20/23 06:30 10/20/23 07:00 10/20/23 07:00 Temperature 99.0 F Pulse Rate 80 Respiratory Rate 34 H Blood Pressure 118/56 L 118/56 L 125/56 L Pulse Oximetry 100 Oxygen Delivery Method Oxygen Flow Rate 10/20/23 07:30 10/20/23 07:30 10/20/23 08:00 Temperature 99.0 F 99.0 F Pulse Rate 80 81 Respiratory Rate 54 H 42 H Blood Pressure 111/50 L Pulse Oximetry 100 100 Oxygen Delivery Method Oxygen Flow Rate 10/20/23 08:00 10/20/23 08:30 10/20/23 08:30 Temperature 98.8 F Pulse Rate 84 Respiratory Rate 52 H Blood Pressure 119/56 L 125/56 L Pulse Oximetry 100 Oxygen Delivery Method Oxygen Flow Rate 10/20/23 09:00 Temperature Pulse Rate Respiratory Rate Blood Pressure Pulse Oximetry Oxygen Delivery Method Nasal Cannula Oxygen Flow Rate Oxygen Delivery Method Nasal Cannula Oxygen Flow Rate 3 Narrative Exam Narrative: thin elder snoozing over breakfast tray Const Other: too thin Chest Other: midline incision scar well healed Resp Other: clear to auscultation bilaterally Cardio Other: regular rate, mechanical heart valves symphonic GI Other: LLQ under dry bandages Other: archer draining clearish yellow Neuro Other: alert and oriented moving all extremities Extrem Other: no marked pedal edema Objective Labs 10/19/23 16:00 10/19/23 16:00 Labs: Laboratory Results - last 24 hr 10/19/23 10/19/23 09:55 16:00 WBC 15.1 H RBC 2.43 L Hgb 7.9 L Hct 23.4 L MCV 96.2 MCH 32.6 MCHC 33.9 RDW 18.8 H Plt Count 161 PT 16.4 H 15.7 H INR 1.4 H 1.4 H Sodium 140 Potassium 4.1 Chloride 112 H Carbon Dioxide 25 BUN 45 H Creatinine 1.65 H Estimated GFR 44 L BUN/Creatinine Ratio 27.3 H Glucose 122 H Calcium 9.7 Phosphorus 3.9 H Magnesium 2.1 Total Bilirubin 1.7 H AST 26 ALT 19 Alkaline Phosphatase 45 Total Protein 5.7 L Albumin 3.1 L Globulin 2.6 Albumin/Globulin Ratio 1.2 PFSH Medical History History of COVID-19 (08/2019) Asthma TIA (transient ischemic attack) Difficulty swallowing GERD (gastroesophageal reflux disease) HTN (hypertension) Secondary pulmonary arterial hypertension Cor pulmonale LBBB (left bundle branch block) Anxiety Colon cancer Atrial fibrillation Chronic anticoagulation Stroke 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 CHF (congestive heart failure) Surgical History History of hip replacement, total (07/2014) History of surgery (~03/2010) History of esophagogastroduodenoscopy (EGD) History of cardiac cath S/P ascending aortic aneurysm repair (07/1994) History of abdominal aortic aneurysm repair Status post colectomy (07/2011) Aortic valve replaced (07/1994) Mitral valve replaced (2009) Social History household members: spouse Smoking Status: Former smoker alcohol intake: never Assessment & Plan Assessment & Plan narrative: 73-year-old male admitted for supratherapeutic INR with evidence of acute blood loss and hematoma at surgical site with respiratory difficulty secondary to anemia #Anemia with acute blood loss at surgical site stable Hgb this morning now POD #1 s/p hematoma washout and hernia repair. Following along with surgery. #Respiratory failure Stable with just a liter or two of O2 via NC - continue and encourage IS use #Supratherapeutic INR Reversed with fresh frozen plasma and was given vitamin K, INR down, continue to trend #Atrial fibrillation Stable rate, monitor patient will be on tele. continue outpt meds. #Leukocytosis suspect this is reactive trend and monitor #Hyperkalemia resolved, monitor #Previous history of GI bleed Noted, consider iv PPI #DVT prophylaxis SCDs only d/t supratherapeutic INR #Coughing since extubation - likely contributory to intraabdominal pressure and hernia blowout. prn cough syrup. #Malnutrition Will consult dietary #Coronary artery disease Troponins trended down, monitor Dispo: likely HH vs rehab pending PT Code status: Patient is modified code. He does not want to be intubated. He does want chest compressions. This was discussed with his and the patient and he was very clear Diet: NPO for surgery PCP: Ney MDM: Quality VTE Deep Vein Thrombosis/Pulmonary Embolism Present on Admission: No
[2023-10-20 10:20] LABS: Hematocrit 22.3 % (41-53); Hemoglobin 7.6 g/dL (13.5-17.5); Mean Corpuscular HGB Conc 33.8 % (30-36); Mean Corpuscular Hemoglobin 32.7 PG (26-34); Mean Corpuscular Volume 96.6 fL (80-100); Platelet Count 159 X10^3/uL (150-400); Red Blood Cell Count 2.31 X10^6/uL (4.5-5.9); Red Cell Distribution Width 18.6 % (11.6-14.8); White Blood Cell Count 13.2 X10^3/uL (4.5-11.0)
[2023-10-20 10:23] LABS: Add Manual Diff / Slide Review YES
[2023-10-20] MEDS: CODEINE/GUAIFENESIN LIQUID 5ML UDC 5 ML PO ×2 (10:23→16:53)
[2023-10-20 10:27] LABS: INR 1.4 (0.9-1.3); Prothrombin Time 15.6 SECONDS (9.4-12.5)
[2023-10-20 10:36] LABS: BUN Creatinine Ratio 33.3 (6-22); Blood Urea Nitrogen 32 mg/dL (9-20); Calcium 9.6 mg/dL (8.4-10.2); Carbon Dioxide 28 mmol/L (22-32); Chloride 114 mmol/L (98-107); Estimated Glomerular Filt Rate > 60 mL/min (>60); Glucose 101 mg/dL (80-110); HEMOLYSIS 27 (0-50); Sodium 142 mmol/L (137-145)
--- NOTE | 2023-10-20 10:49 | PC.NURSE ---
Arterial line removed per Dr Tinoco, patient tolerated well.
[2023-10-20 10:56] LABS: Neutrophils Absolute Manual 11352 /uL (3000-5900); Nucleated Red Blood Cells 1 #/Diff; RBC Morphology Normal Morphology; Total Cells Counted 100
[2023-10-20] MEDS: ENOXAPARIN 40 MG/0.4 ML SYRINGE 80 MG SUBCUT (11:15)
--- NOTE | 2023-10-20 12:52 | ST.IPCSEOM ---
Visit Care Team Role Provider Type Ernesto Brewster MD Primary Care Provider Physician Specialty: Family Practice Address: [facility] [place], [address] Email: [email or web address] Zeferino Esquivel MD Other Providers Physician Specialty: Medical Address: Phone: Fax: Email: Lala Peng MD Other Providers Physician Specialty: Medical Address: Phone: Fax: Email: Timi Gibson MD Other Providers Physician Specialty: Medical Address: [address] [place], [address] Phone: Fax: Email: Enrico Flowers MD Other Providers Physician Specialty: Internal Medicine Address: Phone: Fax: Email: Jurgen Newton MD Other Providers Physician Specialty: Medical Address: Phone: Fax: Email: Viki Everett MD Other Providers Physician Specialty: Anesthesiology Internal Medicine Address: [address] [place] [address], [address] Fax: Email: [email or web address] Other Providers Physician Specialty: Internal Medicine Address: [address] [place], [address] Phone: Fax: Email: [email or web address] Samuel Penn MD Other Providers Physician Specialty: Internal Medicine Address: Phone: Fax: Email: Abhinav Ayala MD Other Providers Physician Specialty: Medical Address: Phone: Fax: Email: Vj Lakhani MD Other Providers Physician Specialty: Internal Medicine Address: [address] [place], [address] Phone: Fax: Email: Nabil Verduzco MD Other Providers Physician Specialty: Medical Address: [address] [place] [address], [address] Phone: Fax: Email: Sandra Zimmer MD Other Providers Physician Specialty: Medical Address: Phone: Fax: Email: Marla Brennan Other Providers Physician Specialty: Medical Address: Phone: Fax: Email: Pam Simon MD Other Providers Physician Specialty: Internal Medicine Address: Phone: Fax: Email: Paige Salamanca DO Emergency Provider Physician Referring Provider Specialty: Emergency Medicine Address: [address] [place] [address], [address] Email: [email or web address] Chivo Tinoco MD Admit Provider Physician Attending Provider Specialty: General Surgery Address: [address] [place] [address], [address] Email: [email or web address] Current Diagnoses Postprocedural hemorrhage of a musculoskeletal structure following a musculoskeletal system procedure (10/18/23) Acute kidney failure, unspecified (10/18/23) Abnormal coagulation profile (10/18/23) Past Medical History (Last Reviewed 10/18/23 @ 15:11 by Paige Salamanca DO) Anxiety (Medical) Asthma (Medical) Atrial fibrillation (Medical) CHF (congestive heart failure) (Medical) Chronic anticoagulation (Medical) Colon cancer (Medical) Cor pulmonale (Medical) Difficulty swallowing (Medical) GERD (gastroesophageal reflux disease) (Medical) History of COVID-19 (Medical 08/2019) HTN (hypertension) (Medical) LBBB (left bundle branch block) (Medical) Secondary pulmonary arterial hypertension (Medical) 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 Chivo Tinoco Reason for Referral c/o coughing on thin liquids Setting Assessment Location Acute Care Visit Type Note Type Initial evaluation Next Note Type Next Note Type Treatment Note Patient Information Identification Type Name History Per H&P: Jurgen Nguyen is a 73-year-old man with a remote history of colon cancer who is postoperative day 6 status post repair of an incisional hernia. He has a history of mechanical mitral and aortic valve replacement on chronic anti coagulation with warfarin who was bridged with Lovenox for his surgery. His medical history is significant for aortic root repair, CVA, atrial fibriliation, CHF with mildly reduced LV EF. He resumed warfarin POD 0 and Lovenox POD 1. A few days after surgery he developed a significant cough and was noted to have significant abdominal wall bruising and yesterday the development of a lump at the site of hernia repair left lower quadrant. He felt dizzy and short of breath today and was brought to the [facility] Emergency room by EMS for evaluation. At admission afebrile, blood pressure 150/ 90 heart rate 90, respiratory rate 25 on 3 L of oxygen. Laboratory studies significant for WBC 16, hematocrit 25 baseline 37, platelets 170, INR 5.0, creatinine 2.81 baseline 1.0 BNP 6400, troponin 0.[address] abdomen pelvis demonstrates intraperitoneal hematoma, hematoma within the abdominal wall and a left lower quadrant recurrent hernia, note is made of pneumoperitoneum in the setting of recent surgery. Pt reports hx of CVA in 2009 which pt's describes as severe, stating that doctors said he would be a vegetable for the rest of his life. 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 He reports difficulty swallowing on and off since his stroke. He did have bouts of aspiration pneumonia between 2009 and 2011. He worked with an SUPERVISOR ACCOUNTS RECEIVABLE at [facility]. He reports that he has had multiple MBSs, the most recent of which was in 2016 which revealed aspiration. Pt reports that he continues to have some difficulty drinking water and will sometimes have a gurgly voice after swallowing (It sounds like I'm drowning). Subjective Observations Pt was seated upright in bed with present at bedside upon SUPERVISOR ACCOUNTS RECEIVABLE entry to [facility]. Fully alert and oriented; able to give hx r/t dysphagia. Vocal quality was clear and speech was intelligible. Pt had breakfast tray present on his bedside table. He had consumed approximately 50% of the meal. Reported by Patient/Caregiver Pain/Discomfort No Other Symptoms Coughing,Difficulty swallowing liquids,Weight loss Comment Pt reports occasional difficulty with swallowing thin liquids. Upon further clarification, he states this is mostly with larger volumes of liquid. Additionally, his states that he tends to eat very slowly and he has lost a significant amount of weight recently. Current Diet Regular (IDDSI 7) Baseline Feeding Method Independent in self-feeding The IDDSI Framework Protocol: IDDSI.1 Objective Assessment Mental Status Alert,Responsive,Cooperative Comment OME omitted due to time constraints as tele-ICU doc was waiting to see the pt. No gross deficits noted during informal observation. Food and Liquid Trials Position During Assessment Upright (90 degrees) Liquids Trialed Thin (IDDSI 0) Solid Trials Regular (IDDSI 7) Oral Impairment Moderately impaired Oral Phase Comments Trials thin liquid WFL. Trials regular solids (malawian toast) were characterized by prolongued mastication, slowed A-P transport, and piecemeal swallows. Given pt weight loss and difficulty with chewing/swallowing solids, SUPERVISOR ACCOUNTS RECEIVABLE discussed diet modification with pt. Pt has a history of being on a puree diet after his stroke and does not want to experience this again. He states It was like being in [facility]. SUPERVISOR ACCOUNTS RECEIVABLE reassured pt that puree was not automatically necessary and there are in- between steps to trial. Pt agreeable to trialing soft and bite sized diet. Pharyngeal Impairment Within functional limits Pharyngeal Phase Comments No overt s/sx aspiration/ penetration were noted with thin liquids across trials of single sips and serial sips via large straw. Nursing also reports that the pt has not demonstrated difficulty with liquids. However, silent aspiration cannot be ruled out without an instrumental assessment. Given pt's hx CVA and vocal fold impairment ( unclear etiology) along with history of aspiration pneumonia, the pt is at risk for silent aspiration. Recommend instrumental assessment to rule out silent aspiration given pt history and c/o coughing while drinking thin liquids. The pt also reports that he typically takes medications with nectar thick liquids based on preference. Updated orders to reflect this. The IDDSI Framework Protocol: IDDSI.1 Findings Swallowing Function Other dysphagia Swallowing Function Comments Oral phase dysphagia, possible pharyngeal phase dysphagia ( MBS ordered) Severity of Swallow Impairment Moderately impaired Contributing Factors to Swallow Reduced oral strength/ Impairment coordination/sensation, Mastication inefficiency Prognosis Good Based on Cognitive status,Family support Impact on Safety and Functioning Risk for aspiration Recommendations Instrumental Assessment Yes Swallowing Treatment Yes Recommended Solids Soft & Bite-sized (IDDSI 6) Recommended Liquids Thin (IDDSI 0) Other Recommendations Meds with nectar thick Medication Recommendations Other Discharge Recommendations Home Comments Meds with nectar liquids Education Patient/Caregiver Education Described results of evaluation,Patient expressed understanding of evaluation, Patient expressed agreement with goals & treatment plans, Family/caregivers expressed understanding of evaluation, Family/caregivers expressed agreement with goals & treatment plans Goals Short-term Goals 1. Pt will complete MBSS for objective evaluation of swallow function in order to rule out silent aspiration. 2. Pt will tolerate diet of thin liquids (IDDSI 0) and soft and bite sized solids ( IDDSI 6) without clinical s/sx dysphagia/aspiration in order to maintain adequate nutrition/hydration. Long-term Goals 1. Pt will tolerate least restrictive diet with no overt clinical s/sx dysphagia/ aspiration in order to meet nutrition/hydration needs.
--- NOTE | 2023-10-20 13:09 | PT.IIE ---
Current Diagnoses Postprocedural hemorrhage of a musculoskeletal structure following a musculoskeletal system procedure (10/18/23) Acute kidney failure, unspecified (10/18/23) Abnormal coagulation profile (10/18/23) Surgery Performed Operation Date: 10/19/23 16:15 Actual Procedures p washout of abdominal wall wound - Chivo Tinoco MD Surgical History (Last Reviewed 10/18/23 @ 19:42 by Brielle Mckeon MD) Aortic valve replaced (07/1994) History of abdominal aortic aneurysm repair History of cardiac cath History of esophagogastroduodenoscopy (EGD) History of hip replacement, total (07/2014) History of surgery (~03/2010) Mitral valve replaced (2009) S/P ascending aortic aneurysm repair (07/1994) Status post colectomy (07/2011) Medical History (Last Reviewed 10/18/23 @ 15:11 by Paige Salamanca DO) Anxiety Asthma Atrial fibrillation CHF (congestive heart failure) Chronic anticoagulation Colon cancer Cor pulmonale Difficulty swallowing GERD (gastroesophageal reflux disease) History of COVID-19 (08/2019) HTN (hypertension) LBBB (left bundle branch block) Secondary pulmonary arterial hypertension 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 Stroke TIA (transient ischemic attack) Physical Therapy Inpatient Evaluation/Re-Eval M1 PT/OT-IP Prior Functional Status Start: 10/20/23 12:37 Freq: NEEDED Status: Active Protocol: Document 10/20/23 12:50 MB (Rec: 10/20/23 13:09 MB [id number]) Medical Review Prior Functional Status Medical History Reviewed Yes Diet/Fluid Consistency Regular Communication Hypoverbal and does answer questions Mobility and Gait Pt reports I and did not use AD and does not have one at home, he lives with and pt states that he does not do a lot of driving Activities of Daily Living and IADL's Pt reports I Social History Household Members spouse Living Arrangements House Number of Floors (Floors) One Floor Number of Stairs To Enter/Railing? 1 step to enter home Home Environment Standard Height Toilet,Walk in Shower,Tub/Shower Home Equipment Shower Seat without Backrest, Hand Held Shower Employment Status Retired M2 PT-IP Current Condition Start: 10/20/23 12:37 Freq: NEEDED Status: Active Protocol: Document 10/20/23 12:50 MB (Rec: 10/20/23 13:09 MB [id number]) Physical Therapy Current Condition Current Condition Evaluation Date 10/20/23 Treatment Diagnosis High INR, recent hernia surgery and hematoma, surgically managed M3 PT-IP Subjective Start: 10/20/23 12:37 Freq: NEEDED Status: Active Protocol: Document 10/20/23 12:50 MB (Rec: 10/20/23 13:09 MB [id number]) Subjective Physical Therapy Visit Type Type Initial Evaluation Visit Start Time 12:50 Visit Stop Time 13:11 Notes Pt is seen d/t heparin drip stopped and INR is trending down and only .1 above high end of normal range Number of LENS CUTTER Visits 0 Physical Therapy Visit Comments Patient Comments Pt is hypoverbal and does not communicate many needs. Therapy Pain Assessment Pain When Pain Assessed At Rest Pain Present Pain Present Pain Reported Location Abdomen Intensity 3 Scale Used Numeric (0 - 10) M4 PT-IP Mobility and Gait Start: 10/20/23 12:37 Freq: NEEDED Status: Active Protocol: Document 10/20/23 12:50 MB (Rec: 10/20/23 13:09 MB [id number]) PT-Bed Mobility Assessment Rolling Type of Rolling Log Rolling Level of Assist Minimal Assistance,1 Person Assistance Supine to Sit Supine to Sit Minimal Assistance,1 Person Assistance,Head of Bed Elevated,Bedrails Scooting Scooting to Edge of Bed Standby Assistance PT-Transfer Assessment Sit to and From Stand Sit to and from Stand Minimal Assistance Equipment Transfer Assistive Device Gait Belt,Front Wheeled Walker Orthotic/Prosthetic Devices or Brace: No Transfers Transfer Destination Chair Transfer Technique Stepping Transfer Ability Level of Assist Minimal Assistance,1 Person Assistance,Use of Upper Extremities Comments Mobility Comments Pt moves slowly and his HR increases to 107 BPM with mobility but it is around 100 BPM at rest. O2 sats on RA decrease to 87% and pt is not dyspnea and reader is on ear lobe. Gait Assessment Gait Gait Assistance Required: Minimum Assistance,1 Person Assist Distance (Feet) 2 Able to Maintain Weight Bearing Status Yes During Gait Assistive Devices Assistive Device Gait Belt,Front Wheeled Walker Orthotic/Prosthetic Devices or Brace: No Gait Deviations General Gait Pattern Decreased Stride Length, Decreased Feet Clearance, Flexed Trunk Factors Limiting Gait Function Factors Limiting Gait Function Decreased Activity Tolerance, Decreased Strength,Difficulty Following Directions,Pain,Poor Balance,Poor Safety Awareness Comments Gait Comments Pt's head and neck are very flexed and he rarely picks his head up with sitting, standing or stepping. Decreased scanning visually and head movement with mobility. Pt does not follow MMT well for LEs. PT-Balance Assessment Sitting Balance and Reactions Static Sitting Balance Ability Good Dynamic Sitting Balance Ability Fair Standing Balance and Reactions Static Standing Balance Ability Fair Dynamic Standing Balance Ability Fair Device Used RW M5 PT-IP Objective Assessments Start: 10/20/23 12:37 Freq: NEEDED Status: Active Protocol: Document 10/20/23 12:50 MB (Rec: 10/20/23 13:09 MB [id number]) Orientation Orientation/Cognition Level of Alertness Alert Orientation Name,Age,Birthday,Month,Place, Situation Language Function Ability No Deficits Noted Safety Awareness Decreased Safety Awareness Memory Description No Deficits Noted Gross Range of Motion Upper Extremity ROM Impairments Did not have pt flex arms d/t abdominal wound and surgery, dressing Lower Extremity ROM Impairments Limited participation with LE ROM and MMT Strength Comments Strength Comments Ankle DF and knee extension are 4/5 B M6 PT-IP Treatment Start: 10/20/23 12:37 Freq: NEEDED Status: Active Protocol: Document 10/20/23 12:50 MB (Rec: 10/20/23 13:09 MB [id number]) Physical Therapy Treatment Education Education Provided Precautions,Safety M7 PT-IP Assessment and Plan Start: 10/20/23 12:37 Freq: NEEDED Status: Active Protocol: Document 10/20/23 12:50 MB (Rec: 10/20/23 13:09 MB [id number]) PT Summary Assessment and Plan Potential Rehabilitation Potential Fair Status of Condition at Evaluation Evolving Summary Impairments Pain,ROM,Strength,Balance,Bed Mobility,Transfers,Gait, Activity Tolerance Progress Towards Goals Progressing Toward Goals Assessment Summary Pt is a 73 y/o male presenting with lethargy and he is hypoverbal. He does answer most questions. He requires min A for mobility at this time. Goals Bed Mobility Goal Independent Transfer Goal Independent,Front Wheeled Walker Gait Goal Independent,Front Wheel Walker Gait Distance 100 Other Goals Pt will ascend and descend 1 step with LRAD and no more than superv to allow safe home entrance. Days to Meet Goals 10 Frequency of Treatment Frequency Of Treatment Once a Day Treatment Plan Physical Therapy Treatment Plan Bed Mobility Training,Transfer Training,Gait Training, Therapeutic Exercise,Balance Retraining,Post Op Education, Discharge Planning,Hot or Cold Pack,Neuromuscular Re-ed, Coordination Retraining,Manual Therapy Precautions Abdominal Surgery Precautions Log Roll,Lifting Restrictions, Gait Belt above Incisional Area Weight Bearing Status Weight Bearing Status Weight Bear as Tolerated Recommendations To Nursing Amount of Assist Needed 1 Person Assist Discharge Recommendations PT Discharge Recommendations Home vs SNF Transportation Needs at Discharge Private Vehicle
--- NOTE | 2023-10-20 14:01 | DIET.CONS ---
Dietary Consultation Note Admission Date: 10/18/2023 17:44 Assessment: 73 y M admitted for post operative bleed. Nutrition screened for low MNA score of 7. Nutrition originally consulted due to patient on ventilator and NPO. Pt is now extubated with diet order. Met with pt at bedside. Pt sitting up with lunch tray in front of him, untouched. Ensure drink was opened and poured in cup and he did drink some along with the apple juice. Reports he has had little appetite in past week with skipped meals. Reports he has lost weight, with need to buy new clothes 2x in past due to clothes being too loose. Pt reports around 10# in 3 months. Unable to confirm through chart. When I inquired about his lunch he reported it's too much, stating he doesn't have the energy and its too much food. Denied needing help eating. Pt usually has 1 Boost drink at home per day. Nutrition focused physical exam results: Muscle loss: Moderate loss in temporalis muscle Severe loss in clavicle region (deltoid/shoulder/acromion process) Subcutaneous fat loss: Severe loss buccal fat pads Severe loss in orbital fat pads Ht: 175.26 cm Wt: 76 kg BMI: 24.3 UBW: Last BM: 10/20/23 (10/20/23 12:49) MNA: 7 Robin Score: 16 Diet: 10/19/23 Dinner Regular [General (Regular) Diet] Diet Modifications: protein supplement with each meal Food Texture: Level 7 - Regular Liquid Consistency: Level 0 - Thin 10/20/23 Lunch Dysphagia Diet Diet Modifications: Protein supplement with each meal per prev order Food Texture: Level 6-Soft & Bite-sized Liquid Consistency: Level 0 - Thin Labs: RBC 2.31 X10^6/uL (4.5-5.9) L 10/20/23 10:12 Hgb 7.6 g/dL (13.5-17.5) L 10/20/23 10:12 Hct 22.3 % (41-53) L 10/20/23 10:12 Creatinine 0.96 mg/dL (0.66-1.25) 10/20/23 10:12 NT-Pro-B Natriuret Pep 6410 pg/mL (<125) H 10/18/23 15:01 Nutrition Diagnosis: Severe acute on chronic protein calorie malnutrition r/t to decrease in PO intake as evidence by moderate to severe loss of muscle mass (temporalis, deltoid) and severe loss of subcutaneous fat (buccal and orbital fat pads) The patient is at much higher risk for medical and surgical complications because of their malnutrition. This increases the difficulty and complexity of medical and surgical interventions and increases the chances of poor outcomes such as morbidity and mortality. Interventions: Continue order of protein supplement at every meal - added Ensure Plus over Original to every meal for extra kcals/protein. Encouraged 2 ONS (Boost or Ensure) outside of hospital over usual 1 and choosing a plus or enlive option of ONS for extra protein. Encouraged intake of Ensure while here to help with recovery/energy levels. Discussed smaller frequent meals and sipping on drinks over time to avoid feeling overwhelmed. Pt acknowledged. EER: [id number] kcals per day (25-27 kcals/kg) 100-120 grams protein per day (1.5 grams per kg) Monitoring/Evaluations: PO intake, ONS tolerance, will f/u in 3 days Electronically Signed by: Yudi Craig 10/20/23 14:01 Clinical Dietitian [address] [address]
[2023-10-20] MEDS: WARFARIN 5 MG TABLET PO (16:52)
[2023-10-20] MEDS: WARFARIN 2.5 MG TABLET PO (16:52)
--- NOTE | 2023-10-20 17:35 | P.PN_ITS ---
Subjective Subjective Date Patient Seen: 10/20/23 Time Patient Seen: 17:38 Interval history: No major overnight events. Tolerating a diet. Pain is adequately controlled. Exam Vital Signs (past 8 hours): - 10/20/23 10:00 10/20/23 10:00 10/20/23 10:30 Temperature 99.1 F Pulse Rate 93 H Respiratory Rate 64 H Blood Pressure 114/72 99/68 Pulse Oximetry 100 Oxygen Delivery Method 10/20/23 10:30 10/20/23 11:00 10/20/23 11:00 Temperature Pulse Rate 88 94 H Respiratory Rate 52 H 22 Blood Pressure 92/56 L Pulse Oximetry 98 98 Oxygen Delivery Method 10/20/23 11:30 10/20/23 11:30 10/20/23 12:00 Temperature Pulse Rate 97 H Respiratory Rate 20 Blood Pressure 98/56 L 103/58 L Pulse Oximetry 94 Oxygen Delivery Method 10/20/23 12:00 10/20/23 12:30 10/20/23 12:30 Temperature Pulse Rate 89 88 Respiratory Rate 26 H 29 H Blood Pressure 104/54 L 104/54 L Pulse Oximetry 92 94 Oxygen Delivery Method 10/20/23 12:55 10/20/23 12:55 10/20/23 13:00 Temperature Pulse Rate 98 H 96 H Respiratory Rate 42 H 88 H Blood Pressure 107/64 Pulse Oximetry 85 L 97 Oxygen Delivery Method 10/20/23 13:00 10/20/23 13:00 10/20/23 13:30 Temperature Pulse Rate Respiratory Rate Blood Pressure 106/63 102/55 L Pulse Oximetry Oxygen Delivery Method Nasal Cannula 10/20/23 13:30 10/20/23 14:00 10/20/23 14:00 Temperature Pulse Rate 95 H 94 H Respiratory Rate 87 H 78 H Blood Pressure 101/63 Pulse Oximetry 89 L 97 Oxygen Delivery Method 10/20/23 14:30 10/20/23 14:30 10/20/23 15:00 Temperature Pulse Rate 86 Respiratory Rate 83 H Blood Pressure 106/55 L 110/53 L Pulse Oximetry 100 Oxygen Delivery Method 10/20/23 15:00 10/20/23 15:30 10/20/23 15:30 Temperature Pulse Rate 86 93 H Respiratory Rate 65 H 79 H Blood Pressure 95/53 L Pulse Oximetry 100 98 Oxygen Delivery Method 10/20/23 16:00 10/20/23 16:01 10/20/23 16:01 Temperature Pulse Rate 97 H 105 H Respiratory Rate 60 H 61 H Blood Pressure 96/66 Pulse Oximetry 68 L 79 L Oxygen Delivery Method 10/20/23 16:30 10/20/23 16:30 10/20/23 17:00 Temperature Pulse Rate 89 92 H Respiratory Rate 23 25 H Blood Pressure 107/72 Pulse Oximetry 100 97 Oxygen Delivery Method 10/20/23 17:01 10/20/23 17:01 Temperature Pulse Rate 92 H Respiratory Rate 24 Blood Pressure 141/63 H Pulse Oximetry 97 Oxygen Delivery Method Oxygen Delivery Method Nasal Cannula Oxygen Flow Rate 3 Narrative Exam Narrative: General elderly man alert oriented no acute distress Chest nonlabored respiration Abdomen soft appropriately tender to palpation. Dressing clean dry intact. Objective Labs 10/20/23 10:12 10/20/23 10:12 Labs: Laboratory Results - last 24 hr 10/20/23 10:12 WBC 13.2 H RBC 2.31 L Hgb 7.6 L Hct 22.3 L MCV 96.6 MCH 32.7 MCHC 33.8 RDW 18.6 H Plt Count 159 Neut % (Auto) Not Reportable Lymph % (Auto) Not Reportable [place] % (Auto) Not Reportable Eos % (Auto) Not Reportable Baso % (Auto) Not Reportable Lymph # (Auto) Not Reportable [place] # (Auto) Not Reportable Baso # (Auto) Not Reportable Total Counted 100 Seg Neutrophils % 86.0 H Lymphocytes % (Manual) 2.0 L Monocytes % (Manual) 11.0 Myelocytes % 1.0 H Neutrophils # (Manual) 08683 H Nucleated RBCs 1 H RBC Morphology Normal morphology PT 15.6 H INR 1.4 H Sodium 142 Potassium 4.0 Chloride 114 H Carbon Dioxide 28 BUN 32 H Creatinine 0.96 Estimated GFR > 60 BUN/Creatinine Ratio 33.3 H Glucose 101 Calcium 9.6 PFSH Medical History History of COVID-19 (08/2019) Asthma TIA (transient ischemic attack) Difficulty swallowing GERD (gastroesophageal reflux disease) HTN (hypertension) Secondary pulmonary arterial hypertension Cor pulmonale LBBB (left bundle branch block) Anxiety Colon cancer Atrial fibrillation Chronic anticoagulation Stroke 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 CHF (congestive heart failure) Surgical History History of hip replacement, total (07/2014) History of surgery (~03/2010) History of esophagogastroduodenoscopy (EGD) History of cardiac cath S/P ascending aortic aneurysm repair (07/1994) History of abdominal aortic aneurysm repair Status post colectomy (07/2011) Aortic valve replaced (07/1994) Mitral valve replaced (2009) Social History household members: spouse Smoking Status: Former smoker alcohol intake: never Assessment & Plan Post-op Postoperative Procedures: Procedures Operation Date: 10/19/23 16:15 Actual Procedure Side Surgeon p washout of abdominal wall wound Chivo Tinoco MD Postoperative plan narrative: 73-year-old man postoperative day 1 status post abdominal washout for a large left rectus sheath hematoma. -regular diet -DC IV fluids -remove Swan catheter -VANDANA resolved -resume anticoagulation. Therapeutic Lovenox and begin warfarin. -PT and speech eval Quality VTE Deep Vein Thrombosis/Pulmonary Embolism Present on Admission: No
[2023-10-20] MEDS: ENOXAPARIN 100 MG/ML SYRINGE 80 MG SUBCUT (20:34)
[2023-10-20] MEDS: LORATADINE 10 MG TABLET PO (20:35)
--- NOTE | 2023-10-20 21:09 | PM.ICURNDS ---
- Date Patient Seen: 10/20/23 Time Patient Seen: 21:10 :: This patient was seen via real time interactive two-way audiovisual telecommunication. Note: no acute events during the day no new complaints started on lovenox and coumadin tonight monitor for bleeding
[2023-10-20] MEDS: OXYCODONE IR 5 MG TABLET PO (21:59)
[2023-10-21] VITALS (20 sets, daily range): BP systolic 102–139; BP diastolic 55–94; PULSE 75–106; RESP 32–99; TEMP 36.9; O2SAT 94–100
[2023-10-21] MEDS: CODEINE/GUAIFENESIN LIQUID 5ML UDC 5 ML PO (03:07)
[2023-10-21] MEDS: BENZOCAINE/MENTHOL 1 LOZ PKT 1 EACH PO (03:07)
[2023-10-21 05:20] LABS: INR 1.4 (0.9-1.3); Prothrombin Time 16.2 SECONDS (9.4-12.5)
[2023-10-21 05:53] LABS: BUN Creatinine Ratio 27.5 (6-22); Blood Urea Nitrogen 28 mg/dL (9-20); Calcium 10.2 mg/dL (8.4-10.2); Carbon Dioxide 32 mmol/L (22-32); Chloride 110 mmol/L (98-107); Estimated Glomerular Filt Rate > 60 mL/min (>60); Glucose 107 mg/dL (80-110); HEMOLYSIS < 15 (0-50); Sodium 140 mmol/L (137-145)
--- NOTE | 2023-10-21 07:26 | PC.NURSE ---
Addendum entered by Scotty Lynn R.N. 10/21/23 07:30: Tolerated procedure well. Original Note: Patient unable to void, hospitalist on duty notified, order received to straight cath, 900 ml of concentrated urine with blood clots drained, patient expressed relief, toleratee
[2023-10-21] MEDS: CODEINE/GUAIFENESIN LIQUID 5ML UDC 10 ML PO (07:49)
[2023-10-21] MEDS: SPIRONOLACTONE 25 MG TABLET 12.5 MG PO (09:19)
[2023-10-21] MEDS: ENOXAPARIN 100 MG/ML SYRINGE 80 MG SUBCUT (09:19)
[2023-10-21] MEDS: TORSEMIDE 10 MG TABLET PO (09:20)
[2023-10-21] MEDS: PANTOPRAZOLE DR 40 MG TABLET PO (09:20)
[2023-10-21] MEDS: FERROUS SULFATE 325 MG TABLET PO (09:20)
[2023-10-21] MEDS: TAMSULOSIN 0.4 MG CAPSULE PO (09:20)
[2023-10-21] MEDS: METOPROLOL ER 50 MG TABLET PO (09:20)
[2023-10-21] MEDS: IPRATROPIUM 0.06% NASAL 15 ML 2 SPRAY NASAL (09:21)
--- NOTE | 2023-10-21 10:00 | DI.RAD.S_ITS ---
PROCEDURE: FL BARIUM SWALLOW W SPEECH INDICATIONS: dysphagia COMPARISON: TECHNIQUE: Examination was conducted in conjunction with speech pathology per standard protocol. In the lateral projection, filming was performed of the patient swallowing. AP projection filming may also be performed with patient swallowing. COMPARISON: [facility], , BARIUM SWALLOW WITH SPEECH, 03/11/2017, 10:26. FINDINGS: Function: The oral propulsive phase is diminished. There is intermittent laryngotracheal penetration. No tacho aspiration seen. There is pathologic vallecular and piriform sinus pooling. There is increased residue within the pharynx. Morphology: No cricopharyngeal bar is identified. No cervical esophageal webs. No strictures. IMPRESSION: Laryngotracheal penetration and abnormal pooling. No tacho aspiration. Please see separately dictated speech pathologist's report. Dictated by: Larry Crenshaw M.D. on 10/21/2023 at 15:45 Approved by: Larry Crenshaw M.D. on 10/21/2023 at 15:48
--- NOTE | 2023-10-21 10:58 | CM.DPC ---
DCP Cont According to chart review, therapy recommending home vs SNF; this recommendation is not likely to hold up for [facility] review for SNF auth. Patient is likely to return home when medically cleared to do so, will plan to discuss HH with patient and family. CM team following clinical course closely for coordination of eventual discharge. ELISEO
--- NOTE | 2023-10-21 11:58 | PT.IPTN ---
Current Diagnoses Postprocedural hemorrhage of a musculoskeletal structure following a musculoskeletal system procedure (10/18/23) Acute kidney failure, unspecified (10/18/23) Abnormal coagulation profile (10/18/23) Surgery Performed Operation Date: 10/19/23 16:15 Actual Procedures p washout of abdominal wall wound - Chivo Tinoco MD Physical Therapy Treatment Note M2 PT-IP Current Condition Start: 10/20/23 12:37 Freq: NEEDED Status: Active Protocol: Document 10/20/23 12:50 MB (Rec: 10/20/23 13:09 MB [id number]) Physical Therapy Current Condition Current Condition Evaluation Date 10/20/23 Treatment Diagnosis High INR, recent hernia surgery and hematoma, surgically managed M3 PT-IP Subjective Start: 10/20/23 12:37 Freq: NEEDED Status: Active Protocol: Document 10/21/23 12:18 TS (Rec: 10/21/23 12:28 TS [id number]) Subjective Physical Therapy Visit Type Type Treatment Note Visit Start Time 11:58 Visit Stop Time 12:15 Number of DIRECTOR INFORMATION SECURITY Visits 1 Physical Therapy Visit Comments Patient Comments Pt found resting in chair, fmaily in room, pt is agreeable to PT. M4 PT-IP Mobility and Gait Start: 10/20/23 12:37 Freq: NEEDED Status: Active Protocol: Document 10/21/23 12:18 TS (Rec: 10/21/23 12:28 TS [id number]) PT-Transfer Assessment Sit to and From Stand Sit to and from Stand Standby Assistance Equipment Transfer Assistive Device None,Gait Belt Orthotic/Prosthetic Devices or Brace: No Comments Mobility Comments STS from chair with no AD CGA for balance. pt is slightly unsteady and recommended use of FWW. He ambulated ~100'SBA with FWW, continues to have flexed posture and keep head low, reports some fatigue, denied lightheadedness or SOB. Educated pt and family on the recommendation of getting a FWW and HHPT. pt was left in chair, all needs met. Gait Assessment Gait Gait Assistance Required: Standby Assistance Distance (Feet) 100 Able to Maintain Weight Bearing Status Yes During Gait Assistive Devices Assistive Device Gait Belt,Front Wheeled Walker Orthotic/Prosthetic Devices or Brace: No Gait Deviations General Gait Pattern Decreased Stride Length, Decreased Feet Clearance, Flexed Trunk Factors Limiting Gait Function Factors Limiting Gait Function Decreased Activity Tolerance, Decreased Strength,Pain,Poor Balance,Poor Safety Awareness Comments Gait Comments See mobility comments PT-Balance Assessment Sitting Balance and Reactions Static Sitting Balance Ability Good Dynamic Sitting Balance Ability Fair Standing Balance and Reactions Static Standing Balance Ability Fair Dynamic Standing Balance Ability Fair Device Used RW M5 PT-IP Objective Assessments Start: 10/20/23 12:37 Freq: NEEDED Status: Active Protocol: Document 10/20/23 12:50 MB (Rec: 10/20/23 13:09 MB [id number]) Orientation Orientation/Cognition Level of Alertness Alert Orientation Name,Age,Birthday,Month,Place, Situation Language Function Ability No Deficits Noted Safety Awareness Decreased Safety Awareness Memory Description No Deficits Noted Gross Range of Motion Upper Extremity ROM Impairments Did not have pt flex arms d/t abdominal wound and surgery, dressing Lower Extremity ROM Impairments Limited participation with LE ROM and MMT Strength Comments Strength Comments Ankle DF and knee extension are 4/5 B M6 PT-IP Treatment Start: 10/20/23 12:37 Freq: NEEDED Status: Active Protocol: Document 10/21/23 12:18 TS (Rec: 10/21/23 12:28 TS [id number]) Physical Therapy Treatment Education Education Provided Precautions,Safety M7 PT-IP Assessment and Plan Start: 10/20/23 12:37 Freq: NEEDED Status: Active Protocol: Document 10/21/23 12:18 TS (Rec: 10/21/23 12:28 TS [id number]) PT Summary Assessment and Plan Potential Rehabilitation Potential Fair Summary Impairments Pain,ROM,Strength,Balance,Bed Mobility,Transfers,Gait, Activity Tolerance Progress Towards Goals Progressing Toward Goals Assessment Summary Jurgen is making some progress with his mobility. He is CGA for STS with no AD. He progressed his gait to ~100' SBA with FWW. He is unsteady without walker and recommended to family and pt to continue use of it at home. Also, recommended HHPT to pt, he somewhat resistant to the idea . PT is recommending home with assist and HHPT. Goals Bed Mobility Goal Independent Transfer Goal Independent,Front Wheeled Walker Gait Goal Independent,Front Wheel Walker Gait Distance 100 Other Goals Pt will ascend and descend 1 step with LRAD and no more than superv to allow safe home entrance. Days to Meet Goals 10 Frequency of Treatment Frequency Of Treatment Once a Day Treatment Plan Physical Therapy Treatment Plan Bed Mobility Training,Transfer Training,Gait Training, Therapeutic Exercise,Balance Retraining,Post Op Education, Discharge Planning,Hot or Cold Pack,Neuromuscular Re-ed, Coordination Retraining,Manual Therapy Precautions Abdominal Surgery Precautions Log Roll,Lifting Restrictions, Gait Belt above Incisional Area Weight Bearing Status Weight Bearing Status Weight Bear as Tolerated Recommendations To Nursing Amount of Assist Needed 1 Person Assist Discharge Recommendations PT Discharge Recommendations Home with Assistance,Home Health Transportation Needs at Discharge Private Vehicle
--- NOTE | 2023-10-21 12:52 | CM.DPC ---
Addendum entered by Swathi Villalobos, PRIVACY OFFICER 10/22/23 08:42: DC Note: Patient discharged home 10.21.23 w/spouse and new referral to [facility]. Start of care 10.25.23. Addendum entered by Swathi Sanchezniewski, WILLARD 10/21/23 13:48: ADD: Spoke with spouse Christina by phone, reviewed discharge plan. Christina plans to stop by [employer] today to look for a walker. Discussed home health services. Spouse agreeable, says her DIL works for one of the HH agencies ,although, needs to find out which one. Spouse plans to leave her HH agency preference with patient's nurse upon her visit later this afternoon. This PRIVACY OFFICER has completed HH orders and F2F ready for referral once HH agency pref is known, will plan to send. Original Note: DCP Cont Patient expected to be discharged home today as long as he can void. Met w/patient to review discharge plan; therapies and provider recommending HH services. Patient cannot stay awake this visit. Will plan to review discharge plan with patient and spouse upon discharge. ELISEO
--- NOTE | 2023-10-21 13:38 | ST.SWALLOW ---
Visit Care Team Role Provider Type Ernesto Brewster MD Primary Care Provider Physician Specialty: Family Practice Address: [facility] [place], [address] Email: [email or web address] Zeferino Esquivel MD Other Providers Physician Specialty: Medical Address: Phone: Fax: Email: Lala Peng MD Other Providers Physician Specialty: Medical Address: Phone: Fax: Email: Timi Gibson MD Other Providers Physician Specialty: Medical Address: [address] [place], [address] Phone: Fax: Email: Enrico Flowers MD Other Providers Physician Specialty: Internal Medicine Address: Phone: Fax: Email: Jurgen Newton MD Other Providers Physician Specialty: Medical Address: Phone: Fax: Email: Viki Everett MD Other Providers Physician Specialty: Anesthesiology Internal Medicine Address: [address] [place] [address], [address] Fax: Email: [email or web address] [email or web address] [place] MD Other Providers Physician Specialty: Internal Medicine Address: [address] [place], [address] Phone: Fax: Email: [email or web address] Samuel Penn MD Other Providers Physician Specialty: Internal Medicine Address: Phone: Fax: Email: Abhinav Ayala MD Other Providers Physician Specialty: Medical Address: Phone: Fax: Email: Vj Lakhani MD Other Providers Physician Specialty: Internal Medicine Address: [address] [place], [address] Phone: Fax: Email: Nabil Verduzco MD Other Providers Physician Specialty: Medical Address: [address] [place] [address], [address] Phone: Fax: Email: Sandra Zimmer MD Other Providers Physician Specialty: Medical Address: Phone: Fax: Email: Marla Brennan Other Providers Physician Specialty: Medical Address: Phone: Fax: Email: Pam Simon MD Other Providers Physician Specialty: Internal Medicine Address: Phone: Fax: Email: Paige Salamanca DO Emergency Provider Physician Referring Provider Specialty: Emergency Medicine Address: [address] [place] [address], [address] Email: [email or web address] Chivo Tinoco MD Admit Provider Physician Attending Provider Specialty: General Surgery Address: [address] [place] [address], [address] Email: [email or web address] Modified Barium Swallow Study RPG PROGRAMMER ANALYST Modified Barium Swallow Study Start: 10/21/23 10:38 Freq: Status: Active Protocol: Document 10/21/23 10:38 CG (Rec: 10/21/23 11:21 CG [id number]) Modified Barium Swallow Study Total Time Visit Start Time 09:45 Visit Stop Time 10:15 Total Visit Minutes [address] Chivo Tinoco Reason for Referral c/o coughing on thin liquids Patient Information Patient History Per H&P: Jurgen Nguyen is a 73-year-old man with a remote history of colon cancer who is postoperative day 6 status post repair of an incisional hernia. He has a history of mechanical mitral and aortic valve replacement on chronic anti coagulation with warfarin who was bridged with Lovenox for his surgery. His medical history is significant for aortic root repair, CVA, atrial fibriliation, CHF with mildly reduced LV EF. He resumed warfarin POD 0 and Lovenox POD 1. A few days after surgery he developed a significant cough and was noted to have significant abdominal wall bruising and yesterday the development of a lump at the site of hernia repair left lower quadrant. He felt dizzy and short of breath today and was brought to the [facility] Emergency room by EMS for evaluation. At admission afebrile, blood pressure 150/ 90 heart rate 90, respiratory rate 25 on 3 L of oxygen. Laboratory studies significant for WBC 16, hematocrit 25 baseline 37, platelets 170, INR 5.0, creatinine 2.81 baseline 1.0 BNP 6400, troponin 0.[address] abdomen pelvis demonstrates intraperitoneal hematoma, hematoma within the abdominal wall and a left lower quadrant recurrent hernia, note is made of pneumoperitoneum in the setting of recent surgery. Pt reports hx of CVA in 2009 which pt's describes as severe, stating that doctors said he would be a vegetable for the rest of his life. 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 He reports difficulty swallowing on and off since his stroke. He did have bouts of aspiration pneumonia between 2009 and 2011. He worked with an RPG PROGRAMMER ANALYST at [facility]. He reports that he has had multiple MBSs, the most recent of which was in 2016 which revealed aspiration. Pt reports that he continues to have some difficulty drinking water and will sometimes have a gurgly voice after swallowing (It sounds like I'm drowning). Subjective Observations Pt was brought down by imaging aid in fluoro chair. He was alert and able to answer questions. He was slightly slumped forward, but able to raise his head when cues. Did not complain of pain this morning. Patient Positioning Position View Lateral Imaging Lateral View Textures Administered Trials Presented Thin Liquid via Spoon (IDDSI 0 ),Thin Liquid via Cup (IDDSI 0 ),Mildly Thick Liquid via Spoon (IDDSI 2),Mildly Thick Liquid via Cup (IDDSI 2), Moderately Thick Liquid via Spoon (IDDSI 3),Regular (IDDSI 7) Barium Tablet No The IDDSI Framework Protocol: IDDSI.1 Oral Impairment Source: The Modified Barium Swallow Impairment Profile (MBSImP??) Tongue Control During Bolus Hold Posterior escape of less than half of bolus Bolus Preparation/Mastication Disorganized chewing/mashing with solid pieces of bolus unchewed Bolus Transport/Lingual Motion Slowed tongue motion Initiation of Pharyngeal Swallow Bolus head in valleculae Additional Oral Impairment Observations -Lip closure not visualized in frame; unable to radiocommunications technician -Bolus hold/control is impaired with bolus escaping over BOT prior to swallow initiation, no clear lingual hold -Disorganized mastication. Mastication continues after first attempt to swallow solid . Unable to form cohesive solid bolus. -A-P lingual motion is slowed and weakened across consistencies. Oral pressure to propel bolus into the pharynx appears reduced, which results in significant portion of bolus remaining in oral cavity after the swallow and trickling over BOT to pool in vallecula. -For tsp thin, swallow initiates with bolus head in vallecula -Pharyngeal swallow initiates with bolus head in valleculae Pharyngeal Impairment Source: The Modified Barium Swallow Impairment Profile (MBSImP??) Soft Palate Elevation Trace column of contrast between soft palate & pharyngeal wall Laryngeal Elevation Min.sup.move. thyroid cart. w/ min.approx.arytenoids to epiglot.petiole Anterior Hyoid Excursion Partial anterior movement Epiglottic Movement Complete inversion Laryngeal Vestibular Closure Incomplete; narrow column air/ contrast in laryngeal vestibule Pharyngeal Stripping Wave Present - diminished Pharyngoesophageal Segment Opening Complete distention & complete duration; no obstruction of flow Tongue Base Retraction Wide column of contrast/air betwn tongue base & post. pharyngeal wall Pharyngeal Residue Collection of residue within/ on pharyngeal structures Location Diffuse (>3 areas) Additional Pharyngeal Impairment -a small collection of Observations contrast remains in a pouch inferior to the UES after the swallow. Some of this contrast flows back through the UES into the pyriforms after the swallow. -laryngeal vestibule closure is minimal, which deep penetration into the laryngeal vestibule on larger boluses. No significant penetration on tsp boluses noted. -Pt unable to fully clear laryngeal vestibule with throat clear or cough, though throat clear does clear some residue. -Large collection of bolus present in the vallecula after swallows, which builds up to more pharyngeal residue along ariepiglottic folds and in pyriform sinuses as subsequent boluses are presented -Throughout the study, more and more contrast drips down laryngeal vestibule and pools on top of vocal folds. Contrast is not observed to pass the vocal folds, but no attempt is made to clear penetrated material. Penetration Aspiration Scale score of 5. A/P View The IDDSI Framework Protocol: IDDSI.1 Clinical Impressions Dysphagia Type Oral,Pharyngeal Findings Pt presents with oropharyngeal dysphagia which results in penetration to the level of the vocal folds with no attempt to clear the laryngeal vestibule. Though no tacho aspiration was observed, this deep penetration without clearance attempt puts the pt at high risk for aspirating penetrated material. Penetration was most severe with large liquid boluses. Recommend decreasing liquid bolus size to 1tsp at a time and uses throat clear + reswallow after each tsp. Also recommend strict oral care and continue to monitor closely for s/sx PNA due to aspiration risk. Rehabilitation Potential Fair Patient Appropriate for Therapy Yes Recommendations Diet Liquids Order Thin (IDDSI 0) Diet Order Minced & Moist (IDDSI 5) Medication Recommendation Crushed in Carrier Comments Thin via tsp only, with throat clear + reswallow Additional Dietary Needs Controlled Sips,Reminders to Use Strategies Aspiration Precautions Recommended Precautions Upright at 90 Degrees,Small Bites/Sips,Double Swallow Additional Precautions throat clear, reswallow. Increase oral care. Treatment Plan Therapy Recommendations Inpatient Speech Therapy, Outpatient Speech Therapy
--- NOTE | 2023-10-21 13:39 | ST.IPDYTX ---
Visit Care Team Role Provider Type Ernesto Brewster MD Primary Care Provider Physician Specialty: Family Practice Address: [facility] [place], [address] Email: [email or web address] Zeferino Esquivel MD Other Providers Physician Specialty: Medical Address: Phone: Fax: Email: Lala Peng MD Other Providers Physician Specialty: Medical Address: Phone: Fax: Email: Timi Gibson MD Other Providers Physician Specialty: Medical Address: [address] [place], [address] Phone: Fax: Email: Enrico Flowers MD Other Providers Physician Specialty: Internal Medicine Address: Phone: Fax: Email: Jurgen Newton MD Other Providers Physician Specialty: Medical Address: Phone: Fax: Email: Viki Everett MD Other Providers Physician Specialty: Anesthesiology Internal Medicine Address: [address] [place] [address], [address] Fax: Email: [email or web address] Kristy [place] MD Other Providers Physician Specialty: Internal Medicine Address: [address] [place], [address] Phone: Fax: Email: [email or web address] Samuel Penn MD Other Providers Physician Specialty: Internal Medicine Address: Phone: Fax: Email: Abhinav Ayala MD Other Providers Physician Specialty: Medical Address: Phone: Fax: Email: Vj Lakhani MD Other Providers Physician Specialty: Internal Medicine Address: [address] [place], [address] Phone: Fax: Email: Nabil Verduzco MD Other Providers Physician Specialty: Medical Address: [address] [place] [address], [address] Phone: Fax: Email: Sandra Zimmer MD Other Providers Physician Specialty: Medical Address: Phone: Fax: Email: Marla Brennan Other Providers Physician Specialty: Medical Address: Phone: Fax: Email: Pam Simon MD Other Providers Physician Specialty: Internal Medicine Address: Phone: Fax: Email: Paige Salamanca DO Emergency Provider Physician Referring Provider Specialty: Emergency Medicine Address: [address] [place] [address], [address] Email: [email or web address] Chivo Tinoco MD Admit Provider Physician Attending Provider Specialty: General Surgery Address: [address] [place] [address], [address] Email: [email or web address] RETAIL TEAM MEMBER Dysphagia Treatment RETAIL TEAM MEMBER Dysphagia Treatment Start: 10/21/23 12:02 Freq: Status: Active Protocol: Document 10/21/23 12:02 CG (Rec: 10/21/23 12:16 CG [id number]) Dysphagia Treatment Session Time Visit Start Time 11:30 Visit Stop Time 11:48 Total Visit Minutes 18 Setting Assessment Location Acute Care Patient Information Subjective Observations Pt was seated upright in hospital chair with and son present at bedside upon RETAIL TEAM MEMBER entry to room. Pt appeared fatigued after MBS this morning, but verbally responsive. Treatment Liquids Trialed Thin (IDDSI 0) Administration Type Tea Spoon Oral Strategies Upright at 90 degrees Pharyngeal Strategies Sitting Upright (90 deg), Double Swallow Additional Dysphagia Treatment -Throat clear and reswallow Strategies Treatment Activities RETAIL TEAM MEMBER further described results of MBSS conducted earlier in the day after reviewing images . Described physiological impairments noted, particularly vallecular pooling which resulted in deep penetration into the laryngeal vestibule across consistencies, particularly with larger boluses. Explained lingual weakness contributing to swallow impairment. Discussed compensatory swallow strategies including comsuming thins one tsp at a time only. Explained swallow - throat clear - reswallow to clear residue between swallows . Provided ongoing education re importance of oral care for reducing likelihood of developing aspiration pneumonia. Conducted trials of tsp bites of chocolate milkshake with verbal cues to sequence swallow - throat clear - reswallow. Provided written swallow precautions sign to family with list of precautions (upright posture, tsp sips, increase oral care, check for pocketing/clean oral cavity after meals). Consulted with nursing re swallow precautions and explained that pt will be throat clearing frequently as a precaution. Discussed crushing meds in applesauce due to difficulty with A-P lingual transit. The IDDSI Framework Protocol: IDDSI.1 Assessment Patient Response to Treatment Fair Rehab Potential Fair Assessment of Improvement Based on MBSS conducted this morning, pt does present as a significant aspiration risk, as laryngeal penetration was observed with no spontaneous attempt to clear. Significant vallecular residue after swallow contributes to risk of penetration/aspiration. Pt was receptive to training in swallow - throat clear - reswallow, though he commented that it makes it very slow to drink anything. Family expressed understanding of this strategy and were aiding in providing verbal cues to the pt to utilize the strategy during trials milkshake. Pt independently utilized tsp bolus size. Pt noted that he had difficulty eating breakfast because it was still too hard. Based on mastication inefficiency and lingual weakness noted on MBS combined with pt complaints, recommending downgrade diet to minced and moist solids. Pt and family expressed understanding of the importance of oral care. RETAIL TEAM MEMBER expressed that pt is still an aspiration risk and these strategies are being implemented with the goal of decreasing that risk. Family expressed understanding. Overall, pt continues to present as an aspiration risk at this time. Airway protection is limited due to pt only being able to produce a weak cough 2/ recent abdominal surgery. Highly recommend strict oral care, adherance to strategies, and monitoring closely for s/sx PNA. Highly recommend follow with home health ST and consider repeat outpatient MBSS. Recommendations Recommendations Downgrade Diet Order Liquids Order Thin (IDDSI 0) Diet Order Minced & Moist (IDDSI 5) Medication Recommendations Crushed in Carrier Comments Meds crushed if possible. Treatment Plan Placement Recommendation after Discharge Home,Home with Home Health, Outpatient Therapy Appropriate for Continued Therapy Yes
[2023-10-21] MEDS: LIDOCAINE 2% (GLYDO) 6 ML GEL TOP (14:59)
--- NOTE | 2023-10-21 16:16 | P.DS_ITS ---
History of Present Illness History of Present Illness Chief complaint: SOB Narrative: Jurgen Nguyen is a 73-year-old man with a remote history of colon cancer who is postoperative day 6 status post repair of an incisional hernia. He has a history of mechanical mitral and aortic valve replacement on chronic anti coagulation with warfarin who was bridged with Lovenox for his surgery. His medical history is significant for aortic root repair, CVA, atrial fibriliation, CHF with mildly reduced LV EF. He resumed warfarin POD 0 and Lovenox POD 1. A few days after surgery he developed a significant cough and was noted to have significant abdominal wall bruising and yesterday the development of a lump at the site of hernia repair left lower quadrant. He felt dizzy and short of breath today and was brought to the [facility] Emergency room by EMS for evaluation. At admission afebrile, blood pressure 150/90 heart rate 90, respiratory rate 25 on 3 L of oxygen. Laboratory studies significant for WBC 16, hematocrit 25 baseline 37, platelets 170, INR 5.0, creatinine 2.81 baseline 1.0 BNP 6400, troponin 0.[address] abdomen pelvis demonstrates intraperitoneal hematoma, hematoma within the abdominal wall and a left lower quadrant recurrent hernia, note is made of pneumoperitoneum in the setting of recent surgery Discharge Providers Provider Date of admission: 10/18/23 17:44 Discharge Date: 10/21/23 Primary care physician: Ernesto Brewster MD Consults: 10/18/23 18:08 Consult to Tele-microwave radio technician Routine Comment: Consulting Provider: [employer] Tele[employer]intensivists Reason for consultation: Fixture Fabricator Repairer services Has provider been notified: Yes 10/18/23 19:26 Consult to Speech Therapy Evaluate & Treat Comment: coughs with thin liquid Physician Instructions: Evaluate and treat 10/19/23 15:49 Consult to Dietitian, Adult Routine Comment: Reason For Exam: Patient on Ventilator and NPO 10/20/23 09:07 Consult to Physical Therapy Evaluate & Treat Comment: Physician Instructions: Evaluate and Treat 10/21/23 13:58 Consult to Home Health Routine Comment: Reason For Exam: Home health services upon discharge Discharge provider: Chivo Tinoco MD Summary Hospital Course Discharge Diagnosis: Rectus sheath hematoma Acute blood loss anemia Acute kidney injury Hospital Course: Following admission the patient received 2 units of packed red blood cells and 2 units of FFP for reversal of his anticoagulation and treatment of acute blood loss anemia. Following day he was taken to the operating room where he underwent a abdominal washout. He was found to have large rectus sheath hematoma with 2.5 L of blood within the abdomen. His hernia repair was intact but revised in order to evacuate the intra-abdominal hematoma. Postoperatively he did well. He had resolution of his acute kidney injury. His blood count remained stable. He was evaluated by Physical therapy and was deemed appropriate for discharge home. At the time of discharge he is hemodynamically stable ambulatory tolerating a diet and without wound drainage. He has resumed his home dosing of warfarin and has been fully anticoagulated with Lovenox for the past 24 hours with out evidence of rebleed. Exam Vital Signs (past 8 hours): - 10/21/23 08:59 10/21/23 09:00 10/21/23 09:50 Pulse Rate 80 Blood Pressure 110/55 L Oxygen Delivery Method Room Air Room Air Fraction of Inspired Oxygen 21 SaO2/FiO2 Ratio 457 Oxygen Delivery Method Room Air Oxygen Flow Rate 0 Narrative Exam Narrative: General adult man alert oriented no acute distress Chest nonlabored respiration Abdomen soft nontender. Left lower quadrant incision clean dry intact with soo. Lorri drain has been removed. No wound drainage. Objective Labs 10/20/23 10:12 10/21/23 04:30 Labs: Laboratory Results - last 24 hr 10/21/23 04:30 PT 16.2 H INR 1.4 H Sodium 140 Potassium 4.0 Chloride 110 H Carbon Dioxide 32 BUN 28 H Creatinine 1.02 Estimated GFR > 60 BUN/Creatinine Ratio 27.5 H Glucose 107 Calcium 10.2 PFSH Medical History History of COVID-19 (08/2019) Asthma TIA (transient ischemic attack) Difficulty swallowing GERD (gastroesophageal reflux disease) HTN (hypertension) Secondary pulmonary arterial hypertension Cor pulmonale LBBB (left bundle branch block) Anxiety Colon cancer Atrial fibrillation Chronic anticoagulation Stroke 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 CHF (congestive heart failure) Surgical History History of hip replacement, total (07/2014) History of surgery (~03/2010) History of esophagogastroduodenoscopy (EGD) History of cardiac cath S/P ascending aortic aneurysm repair (07/1994) History of abdominal aortic aneurysm repair Status post colectomy (07/2011) Aortic valve replaced (07/1994) Mitral valve replaced (2009) Social History household members: spouse Smoking Status: Former smoker alcohol intake: never Discharge Plan Discharge Plan Patient Disposition: Home Provider Discharge Comment: -Continue Lovenox and Warfarin until INR >2.5 -IRN check Monday 10/23 -OK to shower without dressing in place -Clean dry gauze over incision as needed -Avoid coughing, straining, lifting >10 lbs or strenuous exertion -Follow up in general surgery clinic next week for catheter removal Discharge orders & Medications Prescriptions: New tamsulosin 0.4 mg capsule 0.4 mg PO DAILY Qty: 20 0RF ferrous sulfate 325 mg (65 mg iron) Tablet 325 mg PO DAILY Qty: 30 0RF Continued atorvastatin 20 mg tablet 20 mg PO DAILY Entresto 24-26 mg tablet 1 tab PO BID ipratropium bromide 42 mcg (0.06 %) spray,non-aerosol 2 spray intranasal TID Rx Instructions: administer into each nostril loratadine [Allergy Relief (loratadine)] 10 mg tablet 10 mg PO DAILY montelukast 10 mg tablet 10 mg PO DAILY omeprazole 20 mg capsule,delayed release(DR/EC) 20 mg PO BID spironolactone 25 mg tablet 12.5 mg PO DAILY torsemide 20 mg tablet 10 mg PO DAILY albuterol sulfate [Ventolin HFA] 90 mcg/actuation HFA aerosol inhaler 2 puff inhalation Q6H PRN (Reason: Shortness Of Breath) metoprolol succinate 50 mg tablet extended release 24 hr 50 mg PO BID enoxaparin 80 mg 80 mg SUBCUT DAILY cholecalciferol (vitamin D3) 25 mcg (1,000 unit) Tablet 25 mcg PO DAILY docusate sodium [Colace] 100 mg capsule 100 mg PO BID PRN (Reason: Constipation) warfarin 7.5 mg tablet See Rx Instructions .ROUTE .COMPLEX Rx Instructions: 3.75 mg M, F and 7.5mg all other days. acetaminophen [Tylenol] 325 mg capsule 650 mg PO QID PRN (Reason: pain) Qty: 60 0RF Discontinued aspirin 81 mg tablet,delayed release (DR/EC) 81 mg PO DAILY Follow up/Referrals: Chivo Tinoco MD [Physician] - 1 Week Diet/Activity/Treatments Diet: Diet as Tolerated Skin/Wound/Dressing Care Report to your healthcare provider any signs of infection, such as:: chills, fever, increased pain, unusual drainage and unusual redness Visit Report/Discharge Packet Stand Alone Forms: Patient Portal/API, Stroke Signs & Symptoms Discharge Data Primary Care Provider: Ernesto Brewster VTE Deep Vein Thrombosis/Pulmonary Embolism Present on Admission: No
--- NOTE | 2023-10-21 16:16 | PM.PN.1 ---
Subjective Subjective Date Patient Seen: 10/21/23 Time Patient Seen: 09:20 Interval history: CC: hernia revision abdominal pain Doing ok this morning ate breakfast feeling weak but enthusiastic pain is controlled - to work with PT today - pending urination independently he is having some issues with that needed straight cathed this morning. Exam Vital Signs (past 8 hours): - 10/21/23 08:59 10/21/23 09:00 10/21/23 09:50 Pulse Rate 80 Blood Pressure 110/55 L Oxygen Delivery Method Room Air Room Air Fraction of Inspired Oxygen 21 SaO2/FiO2 Ratio 457 Oxygen Delivery Method Room Air Oxygen Flow Rate 0 Narrative Exam Narrative: sitting in chair working with PT Resp Other: clear to auscultation bitaterally Cardio Other: regular rate, S1/S2 minimal pedal edema GI Other: LLQ under clean dry bandage Neuro Other: alert awake oriented Objective Labs 10/20/23 10:12 10/21/23 04:30 Labs: Laboratory Results - last 24 hr 10/21/23 04:30 PT 16.2 H INR 1.4 H Sodium 140 Potassium 4.0 Chloride 110 H Carbon Dioxide 32 BUN 28 H Creatinine 1.02 Estimated GFR > 60 BUN/Creatinine Ratio 27.5 H Glucose 107 Calcium 10.2 PFSH Medical History History of COVID-19 (08/2019) Asthma TIA (transient ischemic attack) Difficulty swallowing GERD (gastroesophageal reflux disease) HTN (hypertension) Secondary pulmonary arterial hypertension Cor pulmonale LBBB (left bundle branch block) Anxiety Colon cancer Atrial fibrillation Chronic anticoagulation Stroke 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 CHF (congestive heart failure) Surgical History History of hip replacement, total (07/2014) History of surgery (~03/2010) History of esophagogastroduodenoscopy (EGD) History of cardiac cath S/P ascending aortic aneurysm repair (07/1994) History of abdominal aortic aneurysm repair Status post colectomy (07/2011) Aortic valve replaced (07/1994) Mitral valve replaced (2009) Social History household members: spouse Smoking Status: Former smoker alcohol intake: never Assessment & Plan Assessment & Plan narrative: 73-year-old male admitted for supratherapeutic INR with evidence of acute blood loss and hematoma at surgical site with respiratory difficulty secondary to anemia #Anemia with acute blood loss at surgical site Still stable Hgb this morning now POD #2 s/p hematoma washout and hernia repair. Following along with surgery they seem pleased with progress. #abdominal hernia s/p repair per surgery, doing well resumed diet #Respiratory failure Stable with minimal O2 support via NC - continue and encourage IS use #Supratherapeutic INR On admission was reversed with fresh frozen plasma and was given vitamin K, INR down, continue to trend #Atrial fibrillation Stable rate, monitor patient will be on tele. continue outpt meds. #Leukocytosis suspect this is reactive trend and monitor #Hyperkalemia resolved, monitor #Previous history of GI bleed Noted, consider iv PPI #DVT prophylaxis SCDs only d/t supratherapeutic INR #Coughing since extubation - likely contributory to intraabdominal pressure and hernia blowout. prn cough syrup. #Coronary artery disease Troponins trended down, monitor #acute urinary obstruction since surgery - unable to dc archer without requiring straight cath - continue to work on this Dispo: likely home with HH once able to urinate Code status: Patient is modified code. He does not want to be intubated. He does want chest compressions. This was discussed with his and the patient and he was very clear Diet: NPO for surgery PCP: Ney MDM: Quality VTE Deep Vein Thrombosis/Pulmonary Embolism Present on Admission: No
--- NOTE | 2023-10-21 16:45 | PC.NURSE ---
Patient retaining 500+ mL urine, archer catheter placed per Dr Tinoco. Patient will DC home with catheter and Dr Tinoco will address on their follow up appointment this week. Catheter management education given to patient and spouse at discharge.
--- NOTE | 2023-10-23 13:47 | CM.DPC ---
LAWANDA faxed discharge summary and updated MD prog notes to Silvano for review and noted in collection notes in Registration/EMR for patient's discharge on 10/21/23. WILLARD Rock
== END 2023-10-21 17:17 | disposition home or self-care (01) | DRG 907 ==
LOC: ED 16:38 → AC 17:45 → ICU 19:14
PROVIDERS: Family Medicine; Internal Medicine Critical Care Medicine; Admitting Provider Surgery; Emergency Provider Emergency Medicine; PCP Family Medicine; Referring Provider Emergency Medicine; Visit Provider Surgery
PROC: 0WUF0JZ Supplement Abdominal Wall with Synthetic Substitute, Open Approach (ICD-10-PCS; principal; 2023-10-19 16:15)
DX: K91.870 Postprocedural hematoma of a digestive system organ or structure following a digestive system procedure (principal); J96.90 Respiratory failure, unspecified, unspecified whether with hypoxia or hypercapnia; K66.1 Hemoperitoneum; N17.9 Acute kidney failure, unspecified; D62 Acute posthemorrhagic anemia; T79.A3XA Traumatic compartment syndrome of abdomen, initial encounter; R79.1 Abnormal coagulation profile; I48.91 Unspecified atrial fibrillation; I25.10 Atherosclerotic heart disease of native coronary artery without angina pectoris; R05.9 Cough, unspecified; N13.9 Obstructive and reflux uropathy, unspecified; K21.9 Gastro-esophageal reflux disease without esophagitis; I10 Essential (primary) hypertension; X58.XXXA Exposure to other specified factors, initial encounter; Z86.73 Personal history of transient ischemic attack (TIA), and cerebral infarction without residual deficits; Z95.4 Presence of other heart-valve replacement; Z79.01 Long term (current) use of anticoagulants; Z87.19 Personal history of other diseases of the digestive system; Z87.891 Personal history of nicotine dependence
CPT/HCPCS: 36415; 36430; 71045; 71260; 74177; 74230; 80048; 80053; 82550; 83690; 83735; 83880; 84100; 84484; 85007; 85014; 85018; 85025; 85027; 85610; 85730; 86850; 86900; 86901; 86927; 87040; 87086; 87797; 92526; 92610; 93005; 93010; 93306; 94640; 94799; 96365; 97116; 97161; 99233; 99285; 99291; 99292; P9016; C9113; J1100; J1650; J1956; J2405; J2704; J3010; J3430; J7613; Q9967

== ENCOUNTER → 2024-01-03 12:06 | Outpatient (CLI) | payer OTHER, SELFPAY ==
[2023-10-18 17:46] VITALS: BMI 24.3
[2023-10-19 15:42] VITALS: PULSE 102; RESP 25; O2SAT 98
[2024-01-03 12:50] LABS: Add Manual Diff / Slide Review NO; Basophils Absolute Auto 0 /uL (0-100); Basophils Percent Auto 0.6 % (0-2); Eosinophils Absolute Auto 0 /uL (0-450); Eosinophils Percent Auto 0.3 % (2-4); Hematocrit 29.1 % (41-53); Hemoglobin 9.8 g/dL (13.5-17.5); Lymphocytes Absolute Auto 600 /uL (1100-4500); Lymphocytes Percent Auto 8.8 % (25-40); Mean Corpuscular HGB Conc 33.7 % (30-36); Mean Corpuscular Volume 98.1 fL (80-100); Monocytes Absolute Auto 800 /uL (0-900); Monocytes Percent Auto 11.4 % (3-14); Neutrophils Absolute Auto 5400 /uL (1500-7000); Neutrophils Percent Auto 78.9 % (50-75); Platelet Count 235 X10^3/uL (150-400); Red Blood Cell Count 2.97 X10^6/uL (4.5-5.9); Red Cell Distribution Width 15.6 % (11.6-14.8); White Blood Cell Count 6.9 X10^3/uL (4.5-11.0)
[2024-01-03 13:24] LABS: BUN Creatinine Ratio 21.1 (6-22); Blood Urea Nitrogen 26 mg/dL (9-20); Calcium 9.9 mg/dL (8.4-10.2); Carbon Dioxide 37 mmol/L (22-32); Chloride 99 mmol/L (98-107); Estimated Glomerular Filt Rate > 60 mL/min (>60); Glucose 88 mg/dL (80-110); HEMOLYSIS < 15 (0-50); Potassium 3.5 mmol/L (3.4-5.1); Sodium 138 mmol/L (137-145)
[2024-01-03 13:29] LABS: NT-proBNP (BNP-Adult 18+) 5300 pg/mL (<125)
== END ==
PROVIDERS: PCP Family Medicine; Referring Provider Internal Medicine Cardiovascular Disease; Visit Provider Internal Medicine Cardiovascular Disease
DX: I50.23 Acute on chronic systolic (congestive) heart failure (principal); I27.81 Cor pulmonale (chronic)
CPT/HCPCS: 36415; 80048; 83880; 85025

== ENCOUNTER → 2024-01-10 13:11 | Outpatient (CLI) | payer OTHER, SELFPAY ==
[2023-10-18 17:46] VITALS: BMI 24.3
[2023-10-19 15:42] VITALS: PULSE 102; RESP 25; O2SAT 98
[2024-01-10 15:28] LABS: BUN Creatinine Ratio 24.1 (6-22); Blood Urea Nitrogen 32 mg/dL (9-20); Calcium 9.8 mg/dL (8.4-10.2); Carbon Dioxide 38 mmol/L (22-32); Chloride 97 mmol/L (98-107); Estimated Glomerular Filt Rate 56 mL/min (>60); Glucose 139 mg/dL (80-110); HEMOLYSIS < 15 (0-50); Potassium 3.8 mmol/L (3.4-5.1); Sodium 138 mmol/L (137-145)
== END ==
PROVIDERS: PCP Family Medicine; Referring Provider Nurse Practitioner Acute Care; Visit Provider Nurse Practitioner Acute Care
DX: I50.23 Acute on chronic systolic (congestive) heart failure (principal)
CPT/HCPCS: 36415; 80048

== ENCOUNTER → 2024-01-25 16:15 | Outpatient (CLI) | payer OTHER, SELFPAY ==
[2023-10-18 17:46] VITALS: BMI 24.3
[2023-10-19 15:42] VITALS: PULSE 102; RESP 25; O2SAT 98
[2024-01-25 18:19] LABS: BUN Creatinine Ratio 20.3 (6-22); Blood Urea Nitrogen 29 mg/dL (9-20); Calcium 10.5 mg/dL (8.4-10.2); Carbon Dioxide 34 mmol/L (22-32); Chloride 102 mmol/L (98-107); Estimated Glomerular Filt Rate 52 mL/min (>60); Glucose 88 mg/dL (80-110); HEMOLYSIS < 15 (0-50); Potassium 4.9 mmol/L (3.4-5.1); Sodium 137 mmol/L (137-145)
== END ==
PROVIDERS: PCP Family Medicine; Referring Provider Nurse Practitioner Acute Care; Visit Provider Nurse Practitioner Acute Care
DX: I50.23 Acute on chronic systolic (congestive) heart failure (principal)
CPT/HCPCS: 36415; 80048

== ENCOUNTER → 2024-02-24 11:22 | Outpatient (CLI) | payer OTHER, SELFPAY ==
[2023-10-18 17:46] VITALS: BMI 24.3
[2023-10-19 15:42] VITALS: PULSE 102; RESP 25; O2SAT 98
[2024-02-24 12:43] LABS: BUN Creatinine Ratio 24.8 (6-22); Blood Urea Nitrogen 31 mg/dL (9-20); Calcium 10.4 mg/dL (8.4-10.2); Carbon Dioxide 31 mmol/L (22-32); Chloride 102 mmol/L (98-107); Estimated Glomerular Filt Rate > 60 mL/min (>60); Glucose 90 mg/dL (80-110); HEMOLYSIS < 15 (0-50); Potassium 4.6 mmol/L (3.4-5.1); Sodium 137 mmol/L (137-145)
== END ==
PROVIDERS: PCP Family Medicine; Referring Provider Internal Medicine Cardiovascular Disease; Visit Provider Internal Medicine Cardiovascular Disease
DX: I27.81 Cor pulmonale (chronic) (principal)
CPT/HCPCS: 36415; 80048

== ENCOUNTER → 2024-05-28 09:49 | Outpatient (CLI) | payer OTHER, SELFPAY ==
[2023-10-18 17:46] VITALS: BMI 24.3
[2023-10-19 15:42] VITALS: PULSE 102; RESP 25; O2SAT 98
[2024-05-28 12:01] LABS: Add Manual Diff / Slide Review NO; Basophils Absolute Auto 0 /uL (0-100); Basophils Percent Auto 0.5 % (0-2); Eosinophils Absolute Auto 200 /uL (0-450); Eosinophils Percent Auto 2.4 % (2-4); Hematocrit 32.9 % (41-53); Hemoglobin 11.1 g/dL (13.5-17.5); Lymphocytes Absolute Auto 600 /uL (1100-4500); Lymphocytes Percent Auto 9.4 % (25-40); Mean Corpuscular HGB Conc 33.6 % (30-36); Mean Corpuscular Hemoglobin 33.8 PG (26-34); Mean Corpuscular Volume 100.5 fL (80-100); Monocytes Absolute Auto 700 /uL (0-900); Monocytes Percent Auto 10.2 % (3-14); Neutrophils Absolute Auto 5000 /uL (1500-7000); Neutrophils Percent Auto 77.5 % (50-75); Platelet Count 174 X10^3/uL (150-400); Red Blood Cell Count 3.27 X10^6/uL (4.5-5.9); Red Cell Distribution Width 14.5 % (11.6-14.8); White Blood Cell Count 6.4 X10^3/uL (4.5-11.0)
[2024-05-28 12:21] LABS: HEMOLYSIS < 15 (0-50)
[2024-05-28 13:17] LABS: BUN Creatinine Ratio 20.5 (6-22); Blood Urea Nitrogen 26 mg/dL (9-20); Calcium 10.8 mg/dL (8.4-10.2); Carbon Dioxide 31 mmol/L (22-32); Chloride 102 mmol/L (98-107); Estimated Glomerular Filt Rate 60 mL/min (>60); Glucose 121 mg/dL (80-110); Sodium 138 mmol/L (137-145)
== END ==
PROVIDERS: PCP Family Medicine; Referring Provider Internal Medicine Cardiovascular Disease; Visit Provider Internal Medicine Cardiovascular Disease
DX: I50.22 Chronic systolic (congestive) heart failure (principal)
CPT/HCPCS: 36415; 80048; 85025

== ENCOUNTER 2024-06-07 15:07 | Emergency (ER) | payer OTHER, SELFPAY ==
[2023-10-18 17:46] VITALS: BMI 24.3
[2023-10-19 15:42] VITALS: PULSE 102; RESP 25; O2SAT 98
[2024-06-07] VITALS (21 sets, daily range): BP systolic 104–143; BP diastolic 56–86; PULSE 54–69; RESP 18–40; TEMP 36.2; O2SAT 90–100; BMI 20.7
--- NOTE | 2024-06-07 15:27 | DI.RAD.S_ITS ---
PROCEDURE: XR CHEST 1V INDICATIONS: chest pain TECHNIQUE: One view of the chest was acquired. COMPARISON: [facility], CR, XR CHEST 1V, 10/19/2023, 15:51. FINDINGS: Surgical changes and devices: Median sternotomy. Fractures superior median sternotomy wire. Lungs and pleura: Moderate right basilar airspace opacity. Mediastinum: Cardiomegaly. Bones and chest wall: No suspicious bony lesions. Overlying soft tissues appear unremarkable. IMPRESSION: 1. Right basilar pneumonia. Continued plain film surveillance is recommended to ensure resolution, and to exclude underlying or central malignancy. 2. Cardiomegaly. Dictated by: Dick Ruano M.D. on 06/07/2024 at 15:53 Approved by: Dick Ruano M.D. on 06/07/2024 at 15:54
--- NOTE | 2024-06-07 15:37 | EKG_ITS ---
[place] [address] [place] [id number] Test Date: 2024-06-07 Pat Name: Jurgen Nguyen Department: [facility] Room: Gender: Male Block Inspector: LEANDRO MARQUEZ : 1950 Requested By: Order Number: [id number] Reading MD: Carlos Porras Measurements Intervals [place] Rate: 66 P: GA: QRS: -29 QRSD: 168 T: 94 QT: 488 QTc: 511 Interpretive Statements Undetermined rhythm Indeterminate axis Left bundle branch block Electronically Signed On 06-07-2024 17:10:06 PDT by Carlos Porras
--- NOTE | 2024-06-07 15:59 | PC.NURSE ---
Pt with difficulty get O2 above 88% on RA, pulse ox on ear for most accurate reading, place pt on O2 at 2L NC, sating in mid to upper 90's at this time.
--- NOTE | 2024-06-07 16:00 | ED_ITS ---
HPI - General Adult <Belinda Alvarenga MD - Last Filed: 06/13/24 16:20> General Chief complaint: Dizziness Stated complaint: agitation, halucinations, heart px sent by [facility] Time Seen by Provider: 06/07/24 15:48 Source: patient and family Mode of arrival: Ambulatory History of Present Illness HPI narrative: 73-year-old gentleman history of valvular heart disease has mechanical mitral aortic valve replacements, severe nonischemic cardiomyopathy ejection fraction at 35%, permanent atrial fibrillation and diffuse nonobstructive coronary disease. Patient is anticoagulated, history of asthma, hyperlipidemia hypertension, congestive heart failure and BPH. He presents to [facility] complaining of increasing dyspnea. He has a cough that started approximately 5 days ago. He does not report fevers. He has not producing sputum. His appetite has been decreased. He does not note significant increase in lower extremity edema. He does not describe chest pain or palpitations beyond his baseline Related Data Home Medications Medication Instructions Recorded Confirmed albuterol sulfate 90 mcg/actuation 2 puff inhalation Q6H PRN 09/15/23 11/17/23 aerosol inhaler (Ventolin HFA) Shortness Of Breath atorvastatin 20 mg tablet 20 mg PO DAILY 09/15/23 11/17/23 ipratropium bromide 42 mcg (0.06 2 spray intranasal TID 09/15/23 11/17/23 %) nasal spray loratadine 10 mg tablet (Allergy 10 mg PO DAILY 09/15/23 11/17/23 Relief (loratadine)) metoprolol succinate 50 mg 50 mg PO BID 09/15/23 11/17/23 tablet,extended release 24 hr montelukast 10 mg tablet 10 mg PO DAILY 09/15/23 11/17/23 omeprazole 20 mg capsule,delayed 20 mg PO BID 09/15/23 11/17/23 release sacubitril 24 mg-valsartan 26 mg 1 tab PO BID 09/15/23 11/17/23 tablet (Entresto) spironolactone 25 mg tablet 12.5 mg PO DAILY 09/15/23 11/17/23 torsemide 20 mg tablet 10 mg PO DAILY 09/15/23 11/17/23 enoxaparin 80 mg SUBCUT DAILY 10/04/23 11/17/23 warfarin 7.5 mg tablet See Rx Instructions .Route .COMPLEX 10/12/23 11/17/23 cholecalciferol (vitamin D3) 25 25 mcg PO DAILY 10/18/23 11/17/23 mcg (1,000 unit) tablet docusate sodium 100 mg capsule 100 mg PO BID PRN Constipation 10/18/23 11/17/23 (Colace) Previous Rx's Medication Instructions Recorded acetaminophen 325 mg capsule 650 mg (2 x 325 mg) PO QID PRN 10/12/23 (Tylenol) pain #60 caps ferrous sulfate 325 mg (65 mg 325 mg PO DAILY #30 tabs 10/21/23 iron) tablet tamsulosin 0.4 mg capsule 0.4 mg PO DAILY #30 caps 11/11/23 Allergies Allergy/AdvReac Type Severity Reaction Status Date / Time clindamycin [CLINDAMYCIN] Allergy Severe ANAPHYLAXIS Verified 11/17/23 15:13 Penicillins [PENICILLINS] Allergy Unknown CHILDHOOD Verified 11/17/23 15:13 - UNKNOWN REACTION PER PT Sulfa (Sulfonamide Allergy Unknown CHILDHOOD Verified 11/17/23 15:13 Antibiotics) - UNKNOWN [SULFA (SULFONAMIDE REACTION ANTIBIOTICS)] PER PT Review of Systems <Belinda Alvarenga MD - Last Filed: 06/13/24 16:20> Review of Systems Narrative: Pertinent positive and negative findings as per HPI Patient History <Belinda Alvarenga MD - Last Filed: 06/13/24 16:20> Medical History History of COVID-19 (08/2019) Asthma TIA (transient ischemic attack) Difficulty swallowing GERD (gastroesophageal reflux disease) HTN (hypertension) Secondary pulmonary arterial hypertension Cor pulmonale LBBB (left bundle branch block) Anxiety Colon cancer Atrial fibrillation Chronic anticoagulation Stroke 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 CHF (congestive heart failure) Surgical History History of hip replacement, total (07/2014) History of surgery (~03/2010) History of esophagogastroduodenoscopy (EGD) History of cardiac cath S/P ascending aortic aneurysm repair (07/1994) History of abdominal aortic aneurysm repair Status post colectomy (07/2011) Aortic valve replaced (07/1994) Mitral valve replaced (2009) Social History household members: spouse Smoking Status: Former smoker alcohol intake: never Smoking Status: Former smoker alcohol intake frequency: 0-2 drinks per day Substance Use Type: does not use Exam <Belinda Alvarenga MD - Last Filed: 06/13/24 16:20> Initial Vital Signs Initial Vital Signs: Vital Signs Temperature 97.2 F L 06/07/24 15:15 Blood Pressure 137/69 06/07/24 15:15 Pulse Oximetry 92 06/07/24 15:15 Oxygen Delivery Method Room Air 06/07/24 15:15 General: Frail and chronically ill-appearing, he is able to speak in complete sentences HEENT: Moist mucous membranes, normal sclera with reactive pupils, Neck: + JVD, supple Respiratory: Lungs with rhonchi in the right mid axillary line. Cardiac: Slow, irregular displaced PMI, noted both diastolic and systolic murmurs Abdomen: Soft, nontender, good bowel tones, no flank pain Skin: Pale, chronic venous stasis changes Neurologic: Globally weak but Grossly neurologically intact with no obvious asymmetries or abnormalities Extremities: No trauma, Psych: Cooperative, appropriate insight and affect <Julian Askew MD - Last Filed: 06/08/24 07:10> Initial Vital Signs Initial Vital Signs: Vital Signs Temperature 97.2 F L 06/07/24 15:15 Blood Pressure 137/69 06/07/24 15:15 Pulse Oximetry 92 06/07/24 15:15 Oxygen Delivery Method Room Air 06/07/24 15:15 Course <Belinda Alvarenga MD - Last Filed: 06/13/24 16:20> Orders Ordered: Discontinued Medications Albuterol/Ipratropium (Albuterol/Ipratropium 3 Ml Ampul) 3 ml INH NOW ONE Stop: 06/07/24 21:29 Last Admin: 06/07/24 21:33 Dose: 3 ml Documented By: MR Albuterol/Ipratropium (Albuterol/Ipratropium 3 Ml Ampul) 3 ml INH NOW ONE Stop: 06/07/24 23:24 Last Admin: 06/07/24 23:25 Dose: 3 ml Documented By: MR Ceftriaxone Sodium 2,000 mg/ (Sodium Chloride) 100 mls @ 200 mls/hr IV NOW ONE Stop: 06/07/24 17:55 Last Infusion: 06/07/24 19:30 Dose: Infused Documented By: Admin: 06/07/24 19:03 Dose: 200 mls/hr Documented By: RAIN Azithromycin 500 mg/ Dextrose 250 mls @ 250 mls/hr IV NOW ONE Stop: 06/07/24 19:57 Last Infusion: 06/07/24 21:31 Dose: Infused Documented By: Admin: 06/07/24 20:16 Dose: 250 mls/hr Documented By: RAIN Furosemide 80 mg/ Sodium (Chloride) 58 mls @ 116 mls/hr IV NOW ONE Stop: 06/07/24 20:07 Last Infusion: 06/07/24 20:59 Dose: Infused Documented By: Admin: 06/07/24 20:18 Dose: 116 mls/hr Documented By: RAIN Vital Signs Vital signs: Vital Signs - 8 hr 06/07/24 23:30 06/07/24 23:30 06/08/24 00:00 Pulse Rate 66 60 Respiratory Rate 18 31 H Blood Pressure 121/72 Pulse Oximetry 96 94 Oxygen Delivery Method Nasal Cannula Oximask Oxygen Flow Rate 3 5 06/08/24 00:00 06/08/24 00:30 06/08/24 00:34 Pulse Rate 59 L 64 Respiratory Rate 31 H 33 H Blood Pressure 96/53 L Pulse Oximetry 97 97 Oxygen Delivery Method Oxygen Flow Rate 06/08/24 00:34 06/08/24 01:00 06/08/24 01:00 Pulse Rate 58 L Respiratory Rate 35 H Blood Pressure 115/64 113/58 L Pulse Oximetry 97 Oxygen Delivery Method Oximask Oxygen Flow Rate 5 06/08/24 01:29 06/08/24 01:29 06/08/24 01:30 Pulse Rate 60 59 L Respiratory Rate 28 H 24 Blood Pressure 125/63 Pulse Oximetry 96 97 Oxygen Delivery Method Oxygen Flow Rate 06/08/24 01:30 06/08/24 02:00 06/08/24 02:00 Pulse Rate 71 Respiratory Rate 42 H Blood Pressure 120/62 123/70 Pulse Oximetry 63 L Oxygen Delivery Method Oxygen Flow Rate 06/08/24 02:09 06/08/24 02:30 06/08/24 02:30 Pulse Rate 58 L 65 Respiratory Rate 35 H 22 Blood Pressure 113/58 L 150/75 H Pulse Oximetry 97 98 Oxygen Delivery Method Oxygen Flow Rate 06/08/24 03:00 06/08/24 03:01 06/08/24 03:01 Pulse Rate 66 64 Respiratory Rate 19 22 Blood Pressure 134/73 Pulse Oximetry 99 99 Oxygen Delivery Method Oxygen Flow Rate 06/08/24 03:30 06/08/24 03:30 06/08/24 04:00 Pulse Rate 73 72 Respiratory Rate 21 18 Blood Pressure 136/71 Pulse Oximetry 100 99 Oxygen Delivery Method Oxygen Flow Rate 06/08/24 04:01 06/08/24 04:01 06/08/24 04:30 Pulse Rate 62 65 Respiratory Rate 30 H 17 Blood Pressure 105/61 Pulse Oximetry 100 98 Oxygen Delivery Method Oxygen Flow Rate 06/08/24 04:30 06/08/24 05:00 06/08/24 05:00 Pulse Rate 63 Respiratory Rate 20 Blood Pressure 134/86 128/77 Pulse Oximetry 91 Oxygen Delivery Method Oxygen Flow Rate <Julian Askew MD - Last Filed: 06/08/24 07:10> Orders Ordered: Discontinued Medications Albuterol/Ipratropium (Albuterol/Ipratropium 3 Ml Ampul) 3 ml INH NOW ONE Stop: 06/07/24 21:29 Last Admin: 06/07/24 21:33 Dose: 3 ml Documented By: Albuterol/Ipratropium (Albuterol/Ipratropium 3 Ml Ampul) 3 ml INH NOW ONE Stop: 06/07/24 23:24 Last Admin: 06/07/24 23:25 Dose: 3 ml Documented By: Ceftriaxone Sodium 2,000 mg/ (Sodium Chloride) 100 mls @ 200 mls/hr IV NOW ONE Stop: 06/07/24 17:55 Last Infusion: 06/07/24 19:30 Dose: Infused Documented By: Admin: 06/07/24 19:03 Dose: 200 mls/hr Documented By: RAIN Azithromycin 500 mg/ Dextrose 250 mls @ 250 mls/hr IV NOW ONE Stop: 06/07/24 19:57 Last Infusion: 06/07/24 21:31 Dose: Infused Documented By: Admin: 06/07/24 20:16 Dose: 250 mls/hr Documented By: RAIN Furosemide 80 mg/ Sodium (Chloride) 58 mls @ 116 mls/hr IV NOW ONE Stop: 06/07/24 20:07 Last Infusion: 06/07/24 20:59 Dose: Infused Documented By: Admin: 06/07/24 20:18 Dose: 116 mls/hr Documented By: RAIN Vital Signs Vital signs: Vital Signs - 8 hr 06/07/24 23:30 06/07/24 23:30 06/08/24 00:00 Pulse Rate 66 60 Respiratory Rate 18 31 H Blood Pressure 121/72 Pulse Oximetry 96 94 Oxygen Delivery Method Nasal Cannula Oximask Oxygen Flow Rate 3 5 06/08/24 00:00 06/08/24 00:30 06/08/24 00:34 Pulse Rate 59 L 64 Respiratory Rate 31 H 33 H Blood Pressure 96/53 L Pulse Oximetry 97 97 Oxygen Delivery Method Oxygen Flow Rate 06/08/24 00:34 06/08/24 01:00 06/08/24 01:00 Pulse Rate 58 L Respiratory Rate 35 H Blood Pressure 115/64 113/58 L Pulse Oximetry 97 Oxygen Delivery Method Oximask Oxygen Flow Rate 5 06/08/24 01:29 06/08/24 01:29 06/08/24 01:30 Pulse Rate 60 59 L Respiratory Rate 28 H 24 Blood Pressure 125/63 Pulse Oximetry 96 97 Oxygen Delivery Method Oxygen Flow Rate 06/08/24 01:30 06/08/24 02:00 06/08/24 02:00 Pulse Rate 71 Respiratory Rate 42 H Blood Pressure 120/62 123/70 Pulse Oximetry 63 L Oxygen Delivery Method Oxygen Flow Rate 06/08/24 02:09 06/08/24 02:30 06/08/24 02:30 Pulse Rate 58 L 65 Respiratory Rate 35 H 22 Blood Pressure 113/58 L 150/75 H Pulse Oximetry 97 98 Oxygen Delivery Method Oxygen Flow Rate 06/08/24 03:00 06/08/24 03:01 06/08/24 03:01 Pulse Rate 66 64 Respiratory Rate 19 22 Blood Pressure 134/73 Pulse Oximetry 99 99 Oxygen Delivery Method Oxygen Flow Rate 06/08/24 03:30 06/08/24 03:30 06/08/24 04:00 Pulse Rate 73 72 Respiratory Rate 21 18 Blood Pressure 136/71 Pulse Oximetry 100 99 Oxygen Delivery Method Oxygen Flow Rate 06/08/24 04:01 06/08/24 04:01 06/08/24 04:30 Pulse Rate 62 65 Respiratory Rate 30 H 17 Blood Pressure 105/61 Pulse Oximetry 100 98 Oxygen Delivery Method Oxygen Flow Rate 06/08/24 04:30 06/08/24 05:00 06/08/24 05:00 Pulse Rate 63 Respiratory Rate 20 Blood Pressure 134/86 128/77 Pulse Oximetry 91 Oxygen Delivery Method Oxygen Flow Rate Medical Decision Making <Belinda Alvarenga MD - Last Filed: 06/13/24 16:20> Lab Data 06/07/24 15:50 06/07/24 15:50 Labs: Lab Results 06/07/24 06/07/24 06/07/24 Range/Units 15:30 15:50 22:43 WBC 12.5 H (4.5-11.0) X10^3/uL RBC 3.74 L (4.5-5.9) X10^6/uL Hgb 12.6 L (13.5-17.5) g/dL Hct 37.7 L (41-53) % MCV 100.6 H (80-100) fL MCH 33.6 (26-34) PG MCHC 33.4 (30-36) % RDW 15.4 H (11.6-14.8) % Plt Count 243 (150-400) X10^3/uL Neut % (Auto) 87.6 H (50-75) % Lymph % (Auto) 3.3 L (25-40) % [place] % (Auto) 9.0 (3-14) % Eos % (Auto) 0.0 L (2-4) % Baso % (Auto) 0.1 (0-2) % Neut # (Auto) 75987 H (2503-4577) /uL Lymph # (Auto) 400 L (4014-1635) /uL [place] # (Auto) 1100 H (0-900) /uL Eos # (Auto) 0 (0-450) /uL Baso # (Auto) 0 (0-100) /uL PT 53.7 H (9.4-12.5) SECONDS INR 4.9 H* (0.9-1.3) APTT 46 H (25.1-36.5) SECONDS ABG Sample Site ABG pH (7.35-7.45) ABG pCO2 (35-45) mmHg ABG pO2 (80-100) mmHg ABG HCO3 (23-27) mmol/L ABG Total CO2 (23-27) mmol/L ABG O2 Saturation (95-100) % ABG Base Excess (-2-3) mmol/L Carlos Test Sodium 146 H (137-145) mmol/L Potassium 3.1 L (3.4-5.1) mmol/L Chloride 105 (98-107) mmol/L Carbon Dioxide 35 H (22-32) mmol/L BUN 35 H (9-20) mg/dL Creatinine 1.06 (0.66-1.25) mg/dL Estimated GFR > 60 (>60) mL/min BUN/Creatinine Ratio 33.0 H (6-22) Glucose 117 H (80-110) mg/dL Lactate 1.9 (0.7-2.1) mmol/L Calcium 11.5 H (8.4-10.2) mg/dL Magnesium 2.4 H (1.6-2.3) mg/dL Total Bilirubin 1.2 (0.2-1.3) mg/dL AST 19 (17-59) IU/L ALT 14 (<50) IU/L Alkaline Phosphatase 71 (38-126) U/L Total Creatine Kinase 25 L (55-170) U/L Troponin I 0.032 (0.01-0.034) ng/mL NT-Pro-B Natriuret Pep 8470 H (<125) pg/mL Total Protein 7.9 (6.3-8.2) g/dL Albumin 4.2 (3.5-5.0) g/dL Globulin 3.7 (1.7-4.1) g/dL Albumin/Globulin Ratio 1.1 (1.0-2.8) Lipase 176 (23-300) U/L Urine Color Yellow Urine Appearance Sl cloudy Urine pH 6.0 (4.5-8.0) Ur Specific [place] 1.010 (1.000-1.035) Urine Protein Negative (Negative) Urine Glucose (UA) Negative (Negative) g/dL Urine Ketones Negative (NEGATIVE) Urine Occult Blood 3+ H (Negative) Urine Nitrate Negative (Negative) Urine Bilirubin Negative (NEGATIVE) Urine Urobilinogen 0.2 (0.2) E.U./dL Ur Leukocyte Esterase 2+ H (NEGATIVE) Urine RBC 1-5/hpf (0-5/HPF) Urine WBC 5-10/hpf H (0-5/HPF) Ur Squamous Epith Cells 0-1 /hpf (0-5/HPF) Urine Bacteria Few (2-10) H (None) Ur Culture Indicated? Specimen cultured Vol Urine Centrifuged 10ml (spun) Chlamy pneumoniae PCR Not detected (Not Detect) Adenovirus (PCR) Not detected (Not Detect) B. pertussis DNA (PCR) Not detected (Not Detect) B.parapertussis DNA PCR Not detected (Not Detecte) Coronavirus OC43 (PCR) Not detected (Not Detect) Coronavirus HKU1 (PCR) Not detected (Not Detect) Coronavirus 229E (PCR) Not detected (Not Detect) SARS-CoV-2 (PCR) Not detected (Not Detecte) Coronavirus NL63 (PCR) Not detected (Not Detect) Human Metapneumovir PCR Not detected (Not Detect) Influenza Type A (PCR) Not detected (Not Detect) Influenza Type B (PCR) Not detected (Not Detect) M. pneumoniae (PCR) Not detected (Not Detect) Parainfluenza 1 (PCR) Not detected (Not Detect) Parainfluenza 2 (PCR) Not detected (Not Detect) Parainfluenza 3 (PCR) Not detected (Not Detect) Parainfluenza 4 (PCR) Not detected (Not Detect) RSV (PCR) Not detected (Not Detect) Entero/Rhino (PCR) Detected H (Not Detect) 06/08/24 06/08/24 Range/Units 04:09 06:42 WBC (4.5-11.0) X10^3/uL RBC (4.5-5.9) X10^6/uL Hgb (13.5-17.5) g/dL Hct (41-53) % MCV (80-100) fL MCH (26-34) PG MCHC (30-36) % RDW (11.6-14.8) % Plt Count (150-400) X10^3/uL Neut % (Auto) (50-75) % Lymph % (Auto) (25-40) % [place] % (Auto) (3-14) % Eos % (Auto) (2-4) % Baso % (Auto) (0-2) % Neut # (Auto) (9824-9101) /uL Lymph # (Auto) (2149-0951) /uL [place] # (Auto) (0-900) /uL Eos # (Auto) (0-450) /uL Baso # (Auto) (0-100) /uL PT (9.4-12.5) SECONDS INR (0.9-1.3) APTT (25.1-36.5) SECONDS ABG Sample Site Right radial ABG pH 7.35 7.41 (7.35-7.45) ABG pCO2 71.4 H* 58.7 H (35-45) mmHg ABG pO2 308 H* 98 (80-100) mmHg ABG HCO3 39 H 38 H (23-27) mmol/L ABG Total CO2 41 H 39 H (23-27) mmol/L ABG O2 Saturation 100 97 (95-100) % ABG Base Excess 10.8 H 10.8 H (-2-3) mmol/L Carlos Test Positive Sodium (137-145) mmol/L Potassium (3.4-5.1) mmol/L Chloride (98-107) mmol/L Carbon Dioxide (22-32) mmol/L BUN (9-20) mg/dL Creatinine (0.66-1.25) mg/dL Estimated GFR (>60) mL/min BUN/Creatinine Ratio (6-22) Glucose (80-110) mg/dL Lactate (0.7-2.1) mmol/L Calcium (8.4-10.2) mg/dL Magnesium (1.6-2.3) mg/dL Total Bilirubin (0.2-1.3) mg/dL AST (17-59) IU/L ALT (<50) IU/L Alkaline Phosphatase (38-126) U/L Total Creatine Kinase (55-170) U/L Troponin I (0.01-0.034) ng/mL NT-Pro-B Natriuret Pep (<125) pg/mL Total Protein (6.3-8.2) g/dL Albumin (3.5-5.0) g/dL Globulin (1.7-4.1) g/dL Albumin/Globulin Ratio (1.0-2.8) Lipase (23-300) U/L Urine Color Urine Appearance Urine pH (4.5-8.0) Ur Specific [place] (1.000-1.035) Urine Protein (Negative) Urine Glucose (UA) (Negative) g/dL Urine Ketones (NEGATIVE) Urine Occult Blood (Negative) Urine Nitrate (Negative) Urine Bilirubin (NEGATIVE) Urine Urobilinogen (0.2) E.U./dL Ur Leukocyte Esterase (NEGATIVE) Urine RBC (0-5/HPF) Urine WBC (0-5/HPF) Ur Squamous Epith Cells (0-5/HPF) Urine Bacteria (None) Ur Culture Indicated? Vol Urine Centrifuged Chlamy pneumoniae PCR (Not Detect) Adenovirus (PCR) (Not Detect) B. pertussis DNA (PCR) (Not Detect) B.parapertussis DNA PCR (Not Detecte) Coronavirus OC43 (PCR) (Not Detect) Coronavirus HKU1 (PCR) (Not Detect) Coronavirus 229E (PCR) (Not Detect) SARS-CoV-2 (PCR) (Not Detecte) Coronavirus NL63 (PCR) (Not Detect) Human Metapneumovir PCR (Not Detect) Influenza Type A (PCR) (Not Detect) Influenza Type B (PCR) (Not Detect) M. pneumoniae (PCR) (Not Detect) Parainfluenza 1 (PCR) (Not Detect) Parainfluenza 2 (PCR) (Not Detect) Parainfluenza 3 (PCR) (Not Detect) Parainfluenza 4 (PCR) (Not Detect) RSV (PCR) (Not Detect) Entero/Rhino (PCR) (Not Detect) Imaging Data Chest x-ray: Radiologist's Impression: PROCEDURE: XR CHEST 1V INDICATIONS: chest pain TECHNIQUE: One view of the chest was acquired. COMPARISON: [facility], , XR CHEST 1V, 10/19/2023, 15:51. FINDINGS: Surgical changes and devices: Median sternotomy. Fractures superior median sternotomy wire. Lungs and pleura: Moderate right basilar airspace opacity. Mediastinum: Cardiomegaly. Bones and chest wall: No suspicious bony lesions. Overlying soft tissues appear unremarkable. IMPRESSION: 1. Right basilar pneumonia. Continued plain film surveillance is recommended to ensure resolution, and to exclude underlying or central malignancy. 2. Cardiomegaly. Dictated by: Dick Ruano M.D. on 06/07/2024 at 15:53 ECG Data Interpretation: Ventricular rate of 66 frequent PVCs, rhythm is uncertain, P waves are not appreciated MDM Narrative Medical decision making narrative: CC: Increasing shortness of breath Complicating co-morbidities: Severe global ischemic cardiomyopathy scheduled for pacemaker in July. 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 Rhonchi in the right mid axillary area. No significant lower extremity edema he does JVD Lab Test results independently reviewed as above. Pertinent findings: White count is 12.5. He does have significant left shift. Chronic stable anemia at 12.6 and 37.7 inr 4.9 Chemistries show mild hypokalemia at 3.1. Creatinine is actually improved over baseline. Calcium is slightly elevated 11.5, magnesium high is 2.4 Troponin is within normal limits ProBNP is slightly elevated at 8407 Lipase is unremarkable Serology is positive for entero rhino virus Independently reviewed EKG: Rate of 66, frequent PVCs. P waves are not appreciated however the non PVC rhythm is regular Imaging studies independently reviewed: IMPRESSION: 1. Right basilar pneumonia. Continued plain film surveillance is recommended to ensure resolution, and to exclude underlying or central malignancy. 2. Cardiomegaly Dictated by: Dick Ruano M.D. on 06/07/2024 at 15:53 Consultations: Care is reviewed with Dr. Quan who agrees that with his severe cardiac history in the setting of newly diagnosed right-sided pneumonia and persistent bradycardia with increased ectopy that patient would be best served at [facility] so that if more urgent cardiac procedural intervention was required it could be done expediently. Treatments: Azithromycin, ceftriaxone Discussion: 73-year-old gentleman with increasing exertional dyspnea. Right- sided pneumonia on chest x-ray consistent with increasing cough. Respiratory panel also reveals rhino virus. Because of his dramatic cardiac history and complications care is reviewed with Dr. Quan who agrees that admission to [facility] for inpatient Cardiac consultation would be appropriate. Patient is not septic nor hypotensive. I believe this is a bacterial community- acquired pneumonia in the setting of viral upper respiratory infection. His oxygen requirements are increasing. He has not on home oxygen and is currently at 4 L to keep sats in the mid 90s. I do not believe that he will need to be intubated within the next 24 hours. He has given a dose Lasix. Patient understands the reason for transfer. Care is turned over to Dr. Askew at change of shift with anticipation that patient will be transferred later this evening <Julian Askew MD - Last Filed: 06/08/24 07:10> Lab Data Labs: Lab Results 06/07/24 06/07/24 06/07/24 Range/Units 15:30 15:50 22:43 WBC 12.5 H (4.5-11.0) X10^3/uL RBC 3.74 L (4.5-5.9) X10^6/uL Hgb 12.6 L (13.5-17.5) g/dL Hct 37.7 L (41-53) % MCV 100.6 H (80-100) fL MCH 33.6 (26-34) PG MCHC 33.4 (30-36) % RDW 15.4 H (11.6-14.8) % Plt Count 243 (150-400) X10^3/uL Neut % (Auto) 87.6 H (50-75) % Lymph % (Auto) 3.3 L (25-40) % [place] % (Auto) 9.0 (3-14) % Eos % (Auto) 0.0 L (2-4) % Baso % (Auto) 0.1 (0-2) % Neut # (Auto) 28421 H (4180-5776) /uL Lymph # (Auto) 400 L (6031-4600) /uL [place] # (Auto) 1100 H (0-900) /uL Eos # (Auto) 0 (0-450) /uL Baso # (Auto) 0 (0-100) /uL PT 53.7 H (9.4-12.5) SECONDS INR 4.9 H* (0.9-1.3) APTT 46 H (25.1-36.5) SECONDS ABG Sample Site ABG pH (7.35-7.45) ABG pCO2 (35-45) mmHg ABG pO2 (80-100) mmHg ABG HCO3 (23-27) mmol/L ABG Total CO2 (23-27) mmol/L ABG O2 Saturation (95-100) % ABG Base Excess (-2-3) mmol/L Carlos Test Sodium 146 H (137-145) mmol/L Potassium 3.1 L (3.4-5.1) mmol/L Chloride 105 (98-107) mmol/L Carbon Dioxide 35 H (22-32) mmol/L BUN 35 H (9-20) mg/dL Creatinine 1.06 (0.66-1.25) mg/dL Estimated GFR > 60 (>60) mL/min BUN/Creatinine Ratio 33.0 H (6-22) Glucose 117 H (80-110) mg/dL Lactate 1.9 (0.7-2.1) mmol/L Calcium 11.5 H (8.4-10.2) mg/dL Magnesium 2.4 H (1.6-2.3) mg/dL Total Bilirubin 1.2 (0.2-1.3) mg/dL AST 19 (17-59) IU/L ALT 14 (<50) IU/L Alkaline Phosphatase 71 (38-126) U/L Total Creatine Kinase 25 L (55-170) U/L Troponin I 0.032 (0.01-0.034) ng/mL NT-Pro-B Natriuret Pep 8470 H (<125) pg/mL Total Protein 7.9 (6.3-8.2) g/dL Albumin 4.2 (3.5-5.0) g/dL Globulin 3.7 (1.7-4.1) g/dL Albumin/Globulin Ratio 1.1 (1.0-2.8) Lipase 176 (23-300) U/L Urine Color Yellow Urine Appearance Sl cloudy Urine pH 6.0 (4.5-8.0) Ur Specific [place] 1.010 (1.000-1.035) Urine Protein Negative (Negative) Urine Glucose (UA) Negative (Negative) g/dL Urine Ketones Negative (NEGATIVE) Urine Occult Blood 3+ H (Negative) Urine Nitrate Negative (Negative) Urine Bilirubin Negative (NEGATIVE) Urine Urobilinogen 0.2 (0.2) E.U./dL Ur Leukocyte Esterase 2+ H (NEGATIVE) Urine RBC 1-5/hpf (0-5/HPF) Urine WBC 5-10/hpf H (0-5/HPF) Ur Squamous Epith Cells 0-1 /hpf (0-5/HPF) Urine Bacteria Few (2-10) H (None) Ur Culture Indicated? Specimen cultured Vol Urine Centrifuged 10ml (spun) Chlamy pneumoniae PCR Not detected (Not Detect) Adenovirus (PCR) Not detected (Not Detect) B. pertussis DNA (PCR) Not detected (Not Detect) B.parapertussis DNA PCR Not detected (Not Detecte) Coronavirus OC43 (PCR) Not detected (Not Detect) Coronavirus HKU1 (PCR) Not detected (Not Detect) Coronavirus 229E (PCR) Not detected (Not Detect) SARS-CoV-2 (PCR) Not detected (Not Detecte) Coronavirus NL63 (PCR) Not detected (Not Detect) Human Metapneumovir PCR Not detected (Not Detect) Influenza Type A (PCR) Not detected (Not Detect) Influenza Type B (PCR) Not detected (Not Detect) M. pneumoniae (PCR) Not detected (Not Detect) Parainfluenza 1 (PCR) Not detected (Not Detect) Parainfluenza 2 (PCR) Not detected (Not Detect) Parainfluenza 3 (PCR) Not detected (Not Detect) Parainfluenza 4 (PCR) Not detected (Not Detect) RSV (PCR) Not detected (Not Detect) Entero/Rhino (PCR) Detected H (Not Detect) 06/08/24 06/08/24 Range/Units 04:09 06:42 WBC (4.5-11.0) X10^3/uL RBC (4.5-5.9) X10^6/uL Hgb (13.5-17.5) g/dL Hct (41-53) % MCV (80-100) fL MCH (26-34) PG MCHC (30-36) % RDW (11.6-14.8) % Plt Count (150-400) X10^3/uL Neut % (Auto) (50-75) % Lymph % (Auto) (25-40) % [place] % (Auto) (3-14) % Eos % (Auto) (2-4) % Baso % (Auto) (0-2) % Neut # (Auto) (4837-9637) /uL Lymph # (Auto) (4604-2382) /uL [place] # (Auto) (0-900) /uL Eos # (Auto) (0-450) /uL Baso # (Auto) (0-100) /uL PT (9.4-12.5) SECONDS INR (0.9-1.3) APTT (25.1-36.5) SECONDS ABG Sample Site Right radial ABG pH 7.35 7.41 (7.35-7.45) ABG pCO2 71.4 H* 58.7 H (35-45) mmHg ABG pO2 308 H* 98 (80-100) mmHg ABG HCO3 39 H 38 H (23-27) mmol/L ABG Total CO2 41 H 39 H (23-27) mmol/L ABG O2 Saturation 100 97 (95-100) % ABG Base Excess 10.8 H 10.8 H (-2-3) mmol/L Carlos Test Positive Sodium (137-145) mmol/L Potassium (3.4-5.1) mmol/L Chloride (98-107) mmol/L Carbon Dioxide (22-32) mmol/L BUN (9-20) mg/dL Creatinine (0.66-1.25) mg/dL Estimated GFR (>60) mL/min BUN/Creatinine Ratio (6-22) Glucose (80-110) mg/dL Lactate (0.7-2.1) mmol/L Calcium (8.4-10.2) mg/dL Magnesium (1.6-2.3) mg/dL Total Bilirubin (0.2-1.3) mg/dL AST (17-59) IU/L ALT (<50) IU/L Alkaline Phosphatase (38-126) U/L Total Creatine Kinase (55-170) U/L Troponin I (0.01-0.034) ng/mL NT-Pro-B Natriuret Pep (<125) pg/mL Total Protein (6.3-8.2) g/dL Albumin (3.5-5.0) g/dL Globulin (1.7-4.1) g/dL Albumin/Globulin Ratio (1.0-2.8) Lipase (23-300) U/L Urine Color Urine Appearance Urine pH (4.5-8.0) Ur Specific [place] (1.000-1.035) Urine Protein (Negative) Urine Glucose (UA) (Negative) g/dL Urine Ketones (NEGATIVE) Urine Occult Blood (Negative) Urine Nitrate (Negative) Urine Bilirubin (NEGATIVE) Urine Urobilinogen (0.2) E.U./dL Ur Leukocyte Esterase (NEGATIVE) Urine RBC (0-5/HPF) Urine WBC (0-5/HPF) Ur Squamous Epith Cells (0-5/HPF) Urine Bacteria (None) Ur Culture Indicated? Vol Urine Centrifuged Chlamy pneumoniae PCR (Not Detect) Adenovirus (PCR) (Not Detect) B. pertussis DNA (PCR) (Not Detect) B.parapertussis DNA PCR (Not Detecte) Coronavirus OC43 (PCR) (Not Detect) Coronavirus HKU1 (PCR) (Not Detect) Coronavirus 229E (PCR) (Not Detect) SARS-CoV-2 (PCR) (Not Detecte) Coronavirus NL63 (PCR) (Not Detect) Human Metapneumovir PCR (Not Detect) Influenza Type A (PCR) (Not Detect) Influenza Type B (PCR) (Not Detect) M. pneumoniae (PCR) (Not Detect) Parainfluenza 1 (PCR) (Not Detect) Parainfluenza 2 (PCR) (Not Detect) Parainfluenza 3 (PCR) (Not Detect) Parainfluenza 4 (PCR) (Not Detect) RSV (PCR) (Not Detect) Entero/Rhino (PCR) (Not Detect) MDM Narrative Medical decision making narrative: CC: Increasing shortness of breath Complicating co-morbidities: Severe global ischemic cardiomyopathy scheduled for pacemaker in July. Mitral and atrial valve replacements, congestive heart failure, hypertension hyperlipidemia Data collected from: patient, spouse Medical records reviewed: Laura notes from supervisor tank cleaning reviewed, plans for biventricular ICD placement in the near future Differential considered: Heart failure, third-degree heart block, pneumonia, sepsis, acute coronary syndrome Exam documented above, pertinent findings include: Chronically ill-appearing, quite frail. Rhonchi in the right mid axillary area. No significant lower extremity edema he does JVD Lab Test results independently reviewed as above. Pertinent findings: White count is 12.5. He does have significant left shift. Chronic stable anemia at 12.6 and 37.7 inr 4.9 Chemistries show mild hypokalemia at 3.1. Creatinine is actually improved over baseline. Calcium is slightly elevated 11.5, magnesium high is 2.4 Troponin is within normal limits ProBNP is slightly elevated at 8407 Lipase is unremarkable Serology is positive for entero rhino virus Independently reviewed EKG: Rate of 66, frequent PVCs. P waves are not appreciated however the non PVC rhythm is regular Imaging studies independently reviewed: IMPRESSION: 1. Right basilar pneumonia. Continued plain film surveillance is recommended to ensure resolution, and to exclude underlying or central malignancy. 2. Cardiomegaly Dictated by: Dick Ruano M.D. on 06/07/2024 at 15:53 Consultations: Care is reviewed with Dr. Quan who agrees that with his severe cardiac history in the setting of newly diagnosed right-sided pneumonia and persistent bradycardia with increased ectopy that patient would be best served at [facility] so that if more urgent cardiac procedural intervention was required it could be done expediently. Treatments: Azithromycin, ceftriaxone Discussion: 73-year-old gentleman with increasing exertional dyspnea. Right- sided pneumonia on chest x-ray consistent with increasing cough. Respiratory panel also reveals rhino virus. Because of his dramatic cardiac history and complications care is reviewed with Dr. Quan who agrees that admission to [facility] for inpatient Cardiac consultation would be appropriate. Patient is not septic nor hypotensive. I believe this is a bacterial community- acquired pneumonia in the setting of viral upper respiratory infection. His oxygen requirements are increasing. He has not on home oxygen and is currently at 4 L to keep sats in the mid 90s. I do not believe that he will need to be intubated within the next 24 hours. He has given a dose Lasix. Patient understands the reason for transfer. Care is turned over to Dr. Askew at change of shift with anticipation that patient will be transferred later this evening 06/07/2024, 8:00 p.mDarwin, [place]. Sign-out from Dr. Alvarenga. 73-year-old male with exertional dyspnea. Large heart on chest x-ray, also right-sided pneumonia. Respiratory panel positive for rhinovirus. Case was presented to cardiology Dr. Quan who advised transfer admission to [facility]. Normotensive. Given IV ceftriaxone and oral azithromycin for community-acquired pneumonia. He has not usually on home oxygen, requiring 4 L supplemental nasal cannula oxygen, saturations mid 90s. IV Lasix dose also given. Anticipate transfer to [facility], await call back from hospitalist. Assumed interim care. No beds available at [facility], bed search initiated Patient with increasing oxygen requirement, placed on high-flow oxygen, seems to be improving. We will check ABG. 0245, no beds regional facilities, case discussed with [facility] 0330, case discussed with Dr. Arnold mammography supervisor at [facility], who accepts patient for transfer ABG on high-flow nasal cannula: PH 7.35, pCO2 71.4, PaO2 308, bicarb 39, base excess 10.8, sats 99.9%. Decreased flow rate per RT. We will repeat interval ABG Awaiting EMS transport, transfer to [facility] as planned 0640, ABG interval repeat. PH 7.414, pCO2 58.7 decreased, PaO2 79.6 improved, bicarb 37.6, base excess 10.8, 97% saturations. Keep same settings for now. No mechanical ventilation indicated for now. Awaiting EMS crew for transfer as planned. Discharge Plan Departure Patient Disposition: [facility] Clinical Impression: Bacterial pneumonia, Rhinovirus infection, Cardiomyopathy, ischemic, CHF (congestive heart failure), Hypoxia Prescriptions: No Action tamsulosin 0.4 mg capsule 0.4 mg PO DAILY Qty: 30 3RF atorvastatin 20 mg tablet 20 mg PO DAILY Entresto 24-26 mg tablet 1 tab PO BID ipratropium bromide 42 mcg (0.06 %) spray,non-aerosol 2 spray intranasal TID Rx Instructions: administer into each nostril loratadine [Allergy Relief (loratadine)] 10 mg tablet 10 mg PO DAILY montelukast 10 mg tablet 10 mg PO DAILY omeprazole 20 mg capsule,delayed release(DR/EC) 20 mg PO BID spironolactone 25 mg tablet 12.5 mg PO DAILY torsemide 20 mg tablet 10 mg PO DAILY albuterol sulfate [Ventolin HFA] 90 mcg/actuation HFA aerosol inhaler 2 puff inhalation Q6H PRN (Reason: Shortness Of Breath) metoprolol succinate 50 mg tablet extended release 24 hr 50 mg PO BID enoxaparin 80 mg 80 mg SUBCUT DAILY cholecalciferol (vitamin D3) 25 mcg (1,000 unit) Tablet 25 mcg PO DAILY docusate sodium [Colace] 100 mg capsule 100 mg PO BID PRN (Reason: Constipation) ferrous sulfate 325 mg (65 mg iron) Tablet 325 mg PO DAILY Qty: 30 0RF warfarin 7.5 mg tablet See Rx Instructions .ROUTE .COMPLEX Rx Instructions: 3.75 mg M, and 7.5mg all other days. acetaminophen [Tylenol] 325 mg capsule 650 mg PO QID PRN (Reason: pain) Qty: 60 0RF Referrals: Ernesto Brewster MD [Primary Care Provider] -
[2024-06-07 16:03] LABS: Add Manual Diff / Slide Review NO; Basophils Absolute Auto 0 /uL (0-100); Basophils Percent Auto 0.1 % (0-2); Eosinophils Absolute Auto 0 /uL (0-450); Hematocrit 37.7 % (41-53); Hemoglobin 12.6 g/dL (13.5-17.5); Lymphocytes Absolute Auto 400 /uL (1100-4500); Lymphocytes Percent Auto 3.3 % (25-40); Mean Corpuscular HGB Conc 33.4 % (30-36); Mean Corpuscular Hemoglobin 33.6 PG (26-34); Mean Corpuscular Volume 100.6 fL (80-100); Monocytes Absolute Auto 1100 /uL (0-900); Neutrophils Absolute Auto 11000 /uL (1500-7000); Neutrophils Percent Auto 87.6 % (50-75); Platelet Count 243 X10^3/uL (150-400); Red Blood Cell Count 3.74 X10^6/uL (4.5-5.9); Red Cell Distribution Width 15.4 % (11.6-14.8); White Blood Cell Count 12.5 X10^3/uL (4.5-11.0)
[2024-06-07 16:10] LABS: Prothrombin Time 53.7 SECONDS (9.4-12.5)
[2024-06-07 16:13] LABS: PTT Partial Thromboplastin Tim 46 SECONDS (25.1-36.5)
[2024-06-07 16:15] LABS: INR 4.9 (0.9-1.3)
[2024-06-07 16:18] LABS: Alanine Aminotransferase 14 IU/L (<50); Albumin 4.2 g/dL (3.5-5.0); Albumin Globulin Ratio 1.1 (1.0-2.8); Alkaline Phosphatase 71 U/L (38-126); Aspartate Aminotransferase 19 IU/L (17-59); Bilirubin Total 1.2 mg/dL (0.2-1.3); Blood Urea Nitrogen 35 mg/dL (9-20); Calcium 11.5 mg/dL (8.4-10.2); Carbon Dioxide 35 mmol/L (22-32); Chloride 105 mmol/L (98-107); Creatine Kinase 25 U/L (55-170); Estimated Glomerular Filt Rate > 60 mL/min (>60); Globulin 3.7 g/dL (1.7-4.1); Glucose 117 mg/dL (80-110); HEMOLYSIS < 15 (0-50); Lipase 176 U/L (23-300); Magnesium 2.4 mg/dL (1.6-2.3); Potassium 3.1 mmol/L (3.4-5.1); Sodium 146 mmol/L (137-145); Total Protein 7.9 g/dL (6.3-8.2)
[2024-06-07 16:27] LABS: Adenovirus Not Detected (Not Detect); B. parapertussis Not Detected (Not Detecte); Bordetella pertussis Not Detected (Not Detect); Chlamydophila pneumoniae Not Detected (Not Detect); Coronavirus 229E Not Detected (Not Detect); Coronavirus HKU1 Not Detected (Not Detect); Coronavirus NL 63 Not Detected (Not Detect); Coronavirus OC43 Not Detected (Not Detect); Human Metapneumovirus Not Detected (Not Detect); Human Rhinovirus/Enterovirus Detected (Not Detect); Influenza A Not Detected (Not Detect); Influenza B Not Detected (Not Detect); Mycoplasma pneumoniae Not Detected (Not Detect); Parainfluenza Virus 1 Not Detected (Not Detect); Parainfluenza Virus 2 Not Detected (Not Detect); Parainfluenza Virus 3 Not Detected (Not Detect); Parainfluenza Virus 4 Not Detected (Not Detect); Respiratory Syncytial Virus Not Detected (Not Detect); SARS- CoV-2 Not Detected (Not Detecte)
[2024-06-07 16:30] LABS: NT-proBNP (BNP-Adult 18+) 8470 pg/mL (<125); Troponin I 0.032 ng/mL (0.01-0.034)
[2024-06-07] MEDS: cefTRIAXone 2,000 MG in SODIUM CHLORIDE 0.9% 100 ML 200 MG IV (19:03)
[2024-06-07 20:11] LABS: Lactate (Lactic Acid) 1.9 mmol/L (0.7-2.1)
[2024-06-07] MEDS: AZITHROMYCIN 500 MG in DEXTROSE 5% IN WATER 250 ML 250 MG IV (20:16)
[2024-06-07] MEDS: FUROSEMIDE 80 MG in SODIUM CHLORIDE 0.9% 50 ML 116 MG IV (20:18)
[2024-06-07] MEDS: ALBUTEROL/IPRATROPIUM 3 ML AMPUL INH ×2 (21:33→23:25)
--- NOTE | 2024-06-07 22:23 | PC.NURSE ---
Addendum entered by Alee Lester CNA 06/08/24 04:11: I called [facility], and Javid for a bed. Javid called back with the addictions therapist, they accepted and we arranged transport for 05 with [facility]ita [facility]ING unavailable to come sooner. Addendum entered by Alee Lester CNA 06/08/24 02:07: at 0200 I updated [facility] that he is going on hi-flow they recommended we look else where for bed placement because they are busy and not expecting to get him a bed any time soon.. Original Note: Dr. Alvarenga spoke with Dr. Quan at [facility], then relayed to me that this pt will be transferring there once the hospitalist calls and accepts him. I made sure all of their stuff was sent over to [facility]. at 2220 I spoke with a new house carpenter helper for an update on when he would be getting a bed and he said they are boarding in the ED and there are no beds at this time for him.
[2024-06-07 22:52] LABS: Appearance Urine UA SL CLOUDY; Bilirubin Urine UA NEGATIVE (NEGATIVE); Color Urine UA YELLOW; Glucose Urine UA NEGATIVE (Negative); Ketones Urine UA NEGATIVE (NEGATIVE); Leukocyte Esterase Urine UA 2+ (NEGATIVE); Nitrite Urine UA NEGATIVE (Negative); Occult Blood Urine UA 3+ (Negative); Protein Urine UA NEGATIVE (Negative); Urobilinogen Urine UA 0.2 E.U./dL (0.2)
[2024-06-07 22:58] LABS: Bacteria Urine Few (2-10); RBC Urine 1-5/HPF (0-5/HPF); Squamous Epithelial Cell Urine 0-1 /HPF (0-5/HPF); Urine Volume 10mL (spun); WBC Urine 5-10/HPF (0-5/HPF)
[2024-06-07 22:59] LABS: Culture Indicated Urine Specimen Cultured
[2024-06-08] VITALS (16 sets, daily range): BP systolic 96–150; BP diastolic 53–86; PULSE 58–73; RESP 17–42; O2SAT 63–100
--- NOTE | 2024-06-08 01:34 | PC.NURSE ---
Pt place on oxymask due to desating with NC when sleeping, Pt has a moist productive cough, he is able to move the secretions up to the back of the throat, instructed on how to use suction to help remove secretions, pt stated that it is helpful.
--- NOTE | 2024-06-08 02:09 | PC.NURSE ---
At approx 0200 pt desated into the 60's, increased resp effort noted, RT was called, pt with moist upper airway and secretions in the throat, suctions attempt to clear mouth what pt was able to move up to back of throat, only a slight improvement in the O2, RT put pt on HighFlow at 55L at 100%, Sats up into the mid 90's at this time. Pt continues to be alert and using suctions to assist with secretions, some improvement in resp effort noted.
[2024-06-08 06:25] LABS: Allen Test for ABG Passed? Positive; Base Excess ABG 10.8 mmol/L (-2-3); Blood Gas Collection Site Right Radial; HCO3 ABG 39 mmol/L (23-27); Oxygen Saturation ABG 100 % (95-100); PCO2 ABG 71.4 mmHg (35-45); PO2 ABG 308 mmHg (80-100); TCO2 ABG 41 mmol/L (23-27); pH ABG 7.35 (7.35-7.45)
[2024-06-08 06:46] LABS: Base Excess ABG 10.8 mmol/L (-2-3); HCO3 ABG 38 mmol/L (23-27); Oxygen Saturation ABG 97 % (95-100); PCO2 ABG 58.7 mmHg (35-45); PO2 ABG 98 mmHg (80-100); TCO2 ABG 39 mmol/L (23-27); pH ABG 7.41 (7.35-7.45)
== END 2024-06-08 07:29 | disposition short-term general hospital (02) ==
PROVIDERS: Emergency Medicine; Emergency Provider Emergency Medicine; PCP Family Medicine
DX: J15.8 Pneumonia due to other specified bacteria (principal); B34.8 Other viral infections of unspecified site; I50.9 Heart failure, unspecified; R09.02 Hypoxemia; I25.5 Ischemic cardiomyopathy; Z79.01 Long term (current) use of anticoagulants; Z11.52 Encounter for screening for COVID-19
CPT/HCPCS: 36415; 36600; 71045; 80053; 81001; 82550; 82805; 83605; 83690; 83735; 83880; 84484; 85025; 85610; 85730; 87040; 87086; 87633; 93005; 94640; 96365; 96367; 96368; 99285; J0696; J1940